=== PATIENT | female | born 1955 | race Caucasian/White ===

== ENCOUNTER 2019-03-01 14:34 | Emergency (ER) | payer OTHER ==
--- NOTE | 2019-03-01 14:39 | PDOC ---
Rapid Medical Evaluation Medical Evaluation: Allergies Allergy/AdvReac Type Severity Reaction Status Date / Time No Known Allergies Allergy Verified 06/25/15 18:30 I have performed a brief in-person evaluation of this patient. The patient presents with a chief complaint of: c/o RLQ pain from yesterday along with nausea; denies vomiting, diarrhea; hx of cholecystectomy; had mild dysuria Pertinent physical exam findings: In NAD, abdomen soft, NT I have ordered the following: labs, urine The patient will proceed to the ED for further evaluation. 03/01/19 14:36
[2019-03-01 14:40] VITALS: BP 147/75; PULSE 74; TEMP 98.5; BMI 33.3
[2019-03-01 15:22] LABS: BASO % 0.8 % (0-2.0); EOS % 4.5 % (0-4.5); HEMATOCRIT 43.3 % (32.4-45.2); HEMOGLOBIN 14.1 GM/dL (10.7-15.3); LYMPH % 24.1 % (8-40); MCH 28.4 pg (25.7-33.7); MCHC 32.5 g/dl (32.0-36.0); MEAN CELL VOLUME 87.4 fl (80-96); MEAN PLT VOLUME 7.6 fl (7.5-11.1); MONO % 6.9 % (3.8-10.2); NEUT % 63.7 % (42.8-82.8); PLATELET COUNT 394 K/MM3 (134-434); RBC 4.95 M/mm3 (3.60-5.2); RDW 13.6 % (11.6-15.6); WHITE BLOOD COUNT 10.5 K/mm3 (4.0-10.0)
[2019-03-01 15:25] LABS: EPI CELLS 0.4 /HPF (0-5/HPF); HYALINE CASTS 0 /lpf (0-8); URINE APPEARANCE CLEAR; URINE BACTERIA 0.5 /hpf (NEGATIVE); URINE BILIRUBIN NEGATIVE (NEGATIVE); URINE COLOR YELLOW; URINE GLUCOSE (UA) NEGATIVE (NEGATIVE); URINE KETONE NEGATIVE (NEGATIVE); URINE LEUK ESTERASE NEGATIVE (NEGATIVE); URINE NITRITE NEGATIVE (NEGATIVE); URINE PROTEIN NEGATIVE (NEGATIVE); URINE RBC 3 /hpf (0-4); URINE UROBILINOGEN 0.2 mg/dL (0.2-1.0); URINE WBC 1 /hpf (0-5)
[2019-03-01 15:57] LABS: BILIRUBIN,TOTAL 0.3 mg/dL (0.2-1); BLOOD UREA NITROGEN 19.1 mg/dL (7-18); CALCIUM 9.4 mg/dL (8.5-10.1); CREATININE 0.8 mg/dL (0.55-1.3); POTASSIUM 4.1 mmol/L (3.5-5.1); TOT PROT 7.6 g/dl (6.4-8.2)
--- NOTE | 2019-03-01 17:42 | PDOC ---
History of Present Illness - General Chief Complaint: Pain Stated Complaint: SOB/ABD PAIN Time Seen by Provider: 03/01/19 14:36 - History of Present Illness Initial Comments: 03/01/19 18:44 HPI: 64 y/o F with hx HLD and HTN presenting with sharp RLQ abdominal pain since yesterday. She states the pain radiates across her lower abdomen to her LLQ. Pain has no pattern and occurs at rest as well as during ambulation. Pain lasts for 15-20 minutes and is 9/10; advil provided no relief. She also reports decreased appetite. She denies any fever, chills, emesis, diarrhea. Of note, she also mentions URI symptoms for the past 3-4 days with sore throat, nausea, congestion, LH, and SOB. She also mentions she has been having burning on urination and hematuria for the past 2 days. PMHx: as noted above ROS: as noted SHx: Denies tobacco use; no alcohol use; no rec drugs Allergies: NKDA ROS: GENERAL/CONSTITUTIONAL: No fever or chills. No weakness. HEAD, EYES, EARS, NOSE AND THROAT: No change in vision. No ear pain or discharge. CARDIOVASCULAR: No chest pain RESPIRATORY: No cough, wheezing, or hemoptysis. GASTROINTESTINAL: +nausea. no vomiting, diarrhea or constipation. GENITOURINARY: +dysuria MUSCULOSKELETAL: No joint or muscle swelling or pain. No neck or back pain. SKIN: No rash NEUROLOGIC: No headache, vertigo, loss of consciousness, or change in strength/ sensation. ENDOCRINE: No increased thirst. No abnormal weight change HEMATOLOGIC/LYMPHATIC: No anemia, easy bleeding, or history of blood clots. ALLERGIC/IMMUNOLOGIC: No hives or skin allergy. PE: GENERAL: Awake, alert, and fully oriented, no acute distress HEAD: No signs of trauma, normocephalic, atraumatic EYES: EOMI, sclera anicteric, conjunctiva clear ENT: Auricles normal inspection, hearing grossly normal, nares patent, oropharynx clear without exudates. Moist mucosa NECK: Normal ROM, no lymphadenopathy LUNGS: No increased work of breathing, symmetrical chest rise, clear to auscultation bilaterally, no wheezes, crackles or rhonchi HEART: Regular rate and rhythm, normal S1 and S2, no murmurs, peripheral pulses 2+ and equal bilaterally. ABDOMEN: Soft, nondistended, mild tender to palpation with facial grimace in LLQ and RLQ, normoactive bowel sounds. No guarding, no rebound. No masses EXTREMITIES: Normal inspection, Normal range of motion, no edema. No clubbing or cyanosis. NEUROLOGICAL: Cranial nerves II through XII grossly intact. Normal speech, normal gait, no focal sensorimotor deficits SKIN: Warm, Dry, normal turgor, no rashes or lesions noted Past History - Past Medical History Allergies/Adverse Reactions: Allergies Allergy/AdvReac Type Severity Reaction Status Date / Time No Known Allergies Allergy Verified 06/25/15 18:30 Home Medications: Ambulatory Orders Naproxen [Naprosyn -] 500 mg PO BID #30 tablet 07/05/14 Oxycodone HCl/Acetaminophen [Percocet 5/325 -] 1 tab PO Q6H #20 tablet 07/05/14 levoFLOXacin [Levaquin] 750 mg PO DAILY #6 tab 03/01/19 metroNIDAZOLE [Flagyl -] 500 mg PO TID #20 tablet 03/01/19 COPD: No Diabetes: Yes HTN: Yes Hypercholesterolemia: Yes - Surgical History Cholecystectomy: Yes - Immunization History Immunization Up to Date: Yes - Suicide/Smoking/Psychosocial Hx Smoking History: Never smoked Have you smoked in the past 12 months: No Information on smoking cessation initiated: No Hx Alcohol Use: No Drug/Substance Use Hx: No Substance Use Type: None *Physical Exam - Vital Signs Last Vital Signs Temp Pulse Resp BP Pulse Ox 98.5 F 74 17 147/75 97 03/01/19 14:37 03/01/19 14:37 03/01/19 14:37 03/01/19 14:37 03/01/19 14:37 ED Treatment Course - LABORATORY CBC & Chemistry Diagram: 03/01/19 15:10 03/01/19 15:10 - ADDITIONAL ORDERS Additional order review: Laboratory Results 03/01/19 03/01/19 15:10 15:10 Sodium 142 Potassium 4.1 Chloride 106 Carbon Dioxide 29 Anion Gap 6 L BUN 19.1 H Creatinine 0.8 Est GFR (CKD-EPI)AfAm 90.30 Est GFR (CKD-EPI)NonAf 77.91 Random Glucose 96 Calcium 9.4 Total Bilirubin 0.3 AST 18 ALT 24 Alkaline Phosphatase 124 H Total Protein 7.6 Albumin 4.0 Urine Color Yellow Urine Appearance Clear Urine pH 5.0 Ur Specific [place] 1.015 Urine Protein Negative Urine Glucose (UA) Negative Urine Ketones Negative Urine Blood Trace Urine Nitrite Negative Urine Bilirubin Negative Urine Urobilinogen 0.2 Ur Leukocyte Esterase Negative Urine WBC (Auto) 1 Urine RBC (Auto) 3 Urine Casts (Auto) 0 U Epithel Cells (Auto) 0.4 Urine Bacteria (Auto) 0.5 03/01/19 15:10 RBC 4.95 MCV 87.4 MCHC 32.5 RDW 13.6 MPV 7.6 Neutrophils % 63.7 Lymphocytes % 24.1 Monocytes % 6.9 Eosinophils % 4.5 Basophils % 0.8 Medical Decision Making - Medical Decision Making 03/01/19 21:29 64 y/o F with hx HLD and HTN presenting with sharp RLQ abdominal pain since yesterday in setting of recent URI as well as in setting of dysuria and hematuria. VSS, AF. PE with RLQ and LLQ discomfort on palpation. DDx includes gastroenteritis, UTI, kidney stone, MSK, appendicitis -cbc, cmp, ua, ucx -ivf, ofirmev 03/01/19 22:31 CT/ABDOMEN PELVIS CT WITH CONTR Abdomen and pelvis CT with intravenous contrast Clinical information given: rlq pain multiplanar imaging was performed following intravenous administration of nonionic contrast. Enteric contrast was not administered. No prior imaging studies are available at this facility for direct comparison. There is no evidence of pneumoperitoneum, abscess, free intraperitoneal fluid or bowel obstruction. The appendix appears unremarkable. There is mild concentric wall thickening involving the middle third of the sigmoid colon in association with diverticulosis. In the same region there appears to be mild pericolonic soft tissue stranding. No gross noncontrast small bowel pathology is identified. A moderately large amount of food material is seen within the gastric lumen which may be on the basis of recent meal ingestion (versus gastroparesis or gastric outlet obstruction). Correlate clinically. Status post cholecystectomy. No biliary tract dilatation is seen. There is probable diffuse hepatic steatosis. Mild to moderate right renal cortical scarring is noted posteriorly. A 3 mm right renal calcification is noted in the same region which may represent a dystrophic calcification versus a nonobstructing calyceal calculus. The spleen, pancreas, adrenal glands and left kidney demonstrate no discrete abnormality. No gross lymphadenopathy is seen. There is no obvious CT evidence of adnexal pathology. Moderate to marked multilevel bilateral lower lumbar degenerative facet arthropathy. Impression: No CT findings of acute pathology are identified within the right lower abdomen/ pelvis. Note is made of mild concentric wall thickening involving the middle third of the sigmoid colon in association with diverticulosis suggestive of acute/subacute uncomplicated diverticulitis. In the same region there appears to be mild pericolonic soft tissue stranding. Correlation with colonoscopy is suggested when the patient's clinical condition permits. Status post cholecystectomy. A moderately large amount of food material is seen within the gastric lumen possibly due to recent meal ingestion. Please see above. Probable diffuse hepatic steatosis. Mild to moderate right renal cortical scarring posteriorly. In this same region a 3 mm calcification is noted which may represent dystrophic calcification versus a nonobstructing calculus. will give first dose of levaquin and flagyl in ED since pharmacy is closed discussed with patient results and she understand return pcxns. she is comfortable with DC with followup with PCP and GI for colonscopy *DC/Admit/Observation/Transfer Diagnosis at time of Disposition: Diverticulitis - Discharge Dispostion Disposition: HOME Condition at time of disposition: Improved Decision to Admit order: No - Prescriptions Prescriptions: levoFLOXacin [Levaquin] 750 mg PO DAILY #6 tab metroNIDAZOLE [Flagyl -] 500 mg PO TID #20 tablet - Referrals Referrals: Eric Castro MD [Staff Physician] - Jhonny Penaloza DO [Staff Physician] - - Patient Instructions Printed Discharge Instructions: High-Fiber Diet, DI for Diverticulitis, DI for Diverticulosis Additional Instructions: Additional Instructions: Please return to the emergency department with any new or worsening symptoms or concerns including worsening pain, fever, fainting, vomiting and not being able to tolerate a diet. Please follow up with your primary care physician within 72 hours. Please also see referrals attached for GI doctor for colonoscopy. Please take the antibiotics prescribed Levofloxacin 750mg daily for 6 more days and Metronidazole 500mg three times a day for 6 more days. Please take tylenol 650mg every 6-8 hours for pain control. Please read the handout on high fiber diet Print Language: ENG - Post Discharge Activity
[2019-03-01] MEDS ORDERED: ACETAMINOPHEN 1000 MG/100 ML VIAL (NON FORMULARY) IVPB ONE (21:21)
[2019-03-01] MEDS ORDERED: ACETAMINOPHEN INJECTION 100 ML IVPB ONE (21:27)
--- NOTE | 2019-03-01 22:13 | PDOC ---
Documentation entered by Morgan Salinas SCRIBE, acting as scribe for Delio Fajardo MD. Delio Fajardo MD: This documentation has been prepared by the Rita stokes Xhesika, SCRIBE, under my direction and personally reviewed by me in its entirety. I confirm that the documentation accurately reflects all work, treatment, procedures, and medical decision making performed by me. Attending Attestation - Resident Resident Name: [email or web address] - ED Attending Attestation I have performed the following: I have examined & evaluated the patient, The case was reviewed & discussed with the resident, I agree w/resident's findings & plan, Exceptions are as noted - HPI HPI: 03/01/19 20:07 The patient is a 64 year old female with a PMH of HLD and HTN who presents to the ED with lower abdominal pain since yesterday. Patient describes her abdominal pain as diffuse, constant and sharp. The patient denies chest pain, shortness of breath. Denies fever, chills, cough , nausea, vomiting, diarrhea and constipation. Denies dysuria, frequency, urgency and hematuria. Allergies:, NKDA Social Hx: Denies current smoking, drinking, or other substance usage. PCP: Dr. Brenda Winters - Physicial Exam PE: 03/01/19 20:07 Vitals: Triage Vital signs reviewed General Appearance: no acute distress, well nourished well developed, Head: Atraumatic, normocephalic Neck: Supple;No Nuchal rigidity Chest Wall: Nontender Cardiac: Regular rate and rhythm, no murmurs, no rubs, no gallops, Lungs: Clear to auscultation bilateral, good air movement bilaterally, Abdomen: (+) diffuse lower abdominal tenderness. Soft, nondistended, normal bowel sounds Extremities: Full range of motion to all extremities, no cyanosis, clubbing, or edema Skin: Warm and dry, no rashes or lesions, no petechiae Neuro: AOX3; Cranial Nerves 2-12 grossly c intact, Strength intact to all extremities, Sensation intact to all extremities Psych: normal mood, normal affect - Medical Decision Making 03/02/19 00:33 CT with evidence of diverticulitis. Patient well-appearing no fever no significant elevated white blood cell count. We'll treat with outpatient antibiotics Findings, the need for follow up and strict return instructions d/w patient
[2019-03-01] MEDS ORDERED: metroNIDAZOLE 250 MG TABLET PO ONE (22:17)
[2019-03-01] MEDS ORDERED: metroNIDAZOLE 250 MG TABLET ONE (22:31)
[2019-03-02] MEDS ORDERED: levoFLOXacin 750 MG TABLET PO ONE (22:16)
== END 2019-03-01 22:43 | disposition home or self-care (01) ==
LOC: JER 14:34
PROC: 3E033NZ Introduction of Analgesics, Hypnotics, Sedatives into Peripheral Vein, Percutaneous Approach (ICD-10-PCS; principal; 2019-03-01)
DX: K57.92 Diverticulitis of intestine, part unspecified, without perforation or abscess without bleeding (principal); I10 Essential (primary) hypertension; E78.5 Hyperlipidemia, unspecified; E11.9 Type 2 diabetes mellitus without complications
CPT/HCPCS: 36415; 74177-TC; 80053; 81003; 85025; 87086; 99283-25; J0131

== ENCOUNTER 2019-03-26 17:15 | Inpatient (IN) | payer OTHER ==
[2019-03-26] MEDS ORDERED: ACETAMINOPHEN 1000 MG/100 ML VIAL (NON FORMULARY) IVPB ONE (19:52)
[2019-03-26] MEDS ORDERED: PANTOPRAZOLE SODIUM 40 MG VIAL IVPUSH ONE (19:52)
[2019-03-26] MEDS ORDERED: SODIUM CHLORIDE 0.9% 500 ML INFUS.BAG IV ONE (19:52)
--- NOTE | 2019-03-26 19:56 | PDOC ---
History of Present Illness - General Chief Complaint: Pain Stated Complaint: stomach pain Time Seen by Provider: 03/26/19 19:11 History Source: Patient, Family Exam Limitations: Language Barrier (daughter at bedside ) - History of Present Illness Initial Comments: 03/28/19 19:34 HPI: 64F PMH HTN c/o abruptly worsening colicky lower quadrant and epigastric abdominal pain and nbnb vomiting x2. was seen approx 1 month ago in [facility] and found to have diverticulitis, subsequently discharged on abx. Has had mild on/ off abdominal pain since dc and had GI f/u schd for 04/01/19. Pt has adhered to no dairy no nuts/seeds soft diet. Sx worsened today around 2pm. + sick contacts (v/d), abd surg: gallbladder, +recent abx use for diverticulitis. Endorses mild nausea, chills, dysuria, and frequency. Last BM yesterday, flatus today. Past History - Past Medical History Allergies/Adverse Reactions: Allergies Allergy/AdvReac Type Severity Reaction Status Date / Time No Known Allergies Allergy Verified 03/26/19 17:21 Home Medications: Ambulatory Orders Hydrochlorothiazide 25 mg PO DAILY 03/27/19 Losartan Potassium 50 mg PO DAILY 03/27/19 COPD: No Diabetes: Yes HTN: Yes Hypercholesterolemia: Yes - Surgical History Cholecystectomy: Yes - Immunization History Immunization Up to Date: Yes - Psycho Social/Smoking Cessation Hx Smoking History: Never smoked Have you smoked in the past 12 months: No Hx Alcohol Use: No Drug/Substance Use Hx: No Substance Use Type: None Review of Systems - Review of Systems Able to Perform ROS?: Yes Comments:: 03/28/19 19:34 ROS: CONSTITUTIONAL: Endorses Chills HEENT: Denies headache RESP: Denies SOB CARD: Denies chest pain, palpitations GI: Endorses mild nausea and vomiting. Denies diarrhea. : Endorses dysuria and frequency Is the patient limited Somali proficient: Yes *Physical Exam - Vital Signs Last Vital Signs Temp Pulse Resp BP Pulse Ox 98.5 F 100 H 18 124/89 98 03/26/19 17:17 03/26/19 17:17 03/26/19 17:17 03/26/19 17:17 03/26/19 17:17 - Physical Exam Comments: 03/28/19 19:34 PE: GEN: Well appearing, NAD, comfortable. AAOx3 HEENT: NC/AT. No facial asymmetry. Moist mucous membranes. Normal voice. Supple neck w/ FROM. CV: S1/S2, RRR, no m/r/g LUNG: CTAB, no wheezes, crackles, rales, rhonchi. GI: +TTP epigastrum and lower quadrants, worse in lower quadrants. Obese, soft, +BS, no guarding, no rebound. No masses EXTREMITIES: 2+ distal pulses. No LE edema. No obvious deformities of all extremities. SKIN: warm, dry, normal turgor PSYCH: normal mood and affect ED Treatment Course - LABORATORY CBC & Chemistry Diagram: 03/28/19 08:10 03/28/19 08:10 - RADIOLOGY Radiology Studies Ordered: Category Date Time Status CHEST X-RAY PORTABLE* [RAD] Stat Radiology 03/26/19 19:48 Ordered Medical Decision Making - Medical Decision Making 03/26/19 20:19 MDM: 64F h/o diverticulitis presenting to ED w/ lower quadrants and epigastric abdominal pain that worsened today. Associated nbnb vomiting x2. +sick contacts. Abdominal Pain h/o diverticulitis - CBC, CMP, Lipase, Amylase, Card - UA, UC - CXR, EKG - Fluids, pain ctrl signed out to attending Discharge - Discharge Information Problems reviewed: Yes Clinical Impression/Diagnosis: Pneumoperitoneum, Acute diverticulitis of intestine, Intestinal perforation Condition: Guarded - Follow up/Referral - Patient Discharge Instructions - Post Discharge Activity
[2019-03-26] MEDS ORDERED: ACETAMINOPHEN INJECTION 100 ML IVPB ONE (21:04)
[2019-03-26] MEDS ORDERED: PANTOPRAZOLE SODIUM 40 MG VIAL ONE (21:05)
--- NOTE | 2019-03-26 21:43 | PDOC ---
Attending Attestation - Resident Resident Name: milatereso - ED Attending Attestation I have performed the following: I have examined & evaluated the patient, The case was reviewed & discussed with the resident, I agree w/resident's findings & plan, Exceptions are as noted - HPI HPI: 03/26/19 21:39 64-year-old female presents with with 2 episodes of vomiting in her severe cramping lower abdominal pain and some chills This patient was seen and diagnosed with diverticulitis at the end of February and placed on Levaquin Levaquin and Flagyl. She does have a follow-up appointment with her GI specialist next Monday - Physicial Exam PE: 03/26/19 21:43 Well-nourished well-developed 64-year-old female complaining of cramping lower abdominal pain and some dysuria Head is normocephalic atraumatic Neck supple Lungs are clear to auscultation bilaterally CVS is regular rate rhythm S1-S2 Abdomen is soft there is no rebound there is tenderness to deep palpation in her suprapubic area No flank tenderness Skin is warm and dry Neuro alert and oriented x3 03/27/19 01:58 - Medical Decision Making 03/27/19 00:19 EKG is normal sinus rhythm 86 bpm, nonspecific T wave abnormalities 03/27/19 01:50 CAT scan of the abdomen and pelvis with contrast showed a large amount of intraperitoneal free air indicating bowel perforation There is mild sigmoid inflammation that may be due to perforated diverticulitis There is a tiny right renal stone Case was discussed with the surgeon Dr. BLOOM [phone] [id number] Recommendations : n.p.o., Zosyn 3.375 D5 and half-normal saline for fluid He wants patient admitted by hospitalist and he will be the ophthalmology surgical technician He will see the patient this morning and make a decision to see if she requires surgery or not Sigmoid diverticulitis, bowel perforation 03/27/19 01:55
[2019-03-26 22:38] LABS: URINE APPEARANCE CLEAR; URINE BILIRUBIN NEGATIVE (NEGATIVE); URINE COLOR YELLOW; URINE GLUCOSE (UA) NEGATIVE (NEGATIVE); URINE KETONE TRACE (NEGATIVE); URINE LEUK ESTERASE NEGATIVE (NEGATIVE); URINE NITRITE NEGATIVE (NEGATIVE); URINE PROTEIN NEGATIVE (NEGATIVE)
[2019-03-26 22:47] LABS: AMYLASE 44 U/L (25-115); LIPASE 74 U/L (73-393)
[2019-03-26 22:53] LABS: ALBUMIN 3.6 g/dl (3.4-5.0); ALK PHOS 105 U/L (45-117); ANION GAP 10 MMOL/L (8-16); BILIRUBIN,TOTAL 0.5 mg/dL (0.2-1); BLOOD UREA NITROGEN 22.7 mg/dL (7-18); CHLORIDE 102 mmol/L (98-107); CO2 25 mmol/L (21-32); CREATININE 0.8 mg/dL (0.55-1.3); GLUCOSE,RANDOM 163 mg/dL (74-106); POTASSIUM 3.8 mmol/L (3.5-5.1); SGOT/AST 18 U/L (15-37); SGPT/ALT 25 U/L (13-61); SODIUM 137 mmol/L (136-145); TOT PROT 7.2 g/dl (6.4-8.2)
[2019-03-26 23:31] LABS: BASO % 0.4 % (0-2.0); HEMATOCRIT 42.9 % (32.4-45.2); HEMOGLOBIN 14.6 GM/dL (10.7-15.3); LYMPH % 7.9 % (8-40); MCH 29.2 pg (25.7-33.7); MEAN CELL VOLUME 85.9 fl (80-96); MEAN PLT VOLUME 7.5 fl (7.5-11.1); MONO % 4.5 % (3.8-10.2); NEUT % 87.2 % (42.8-82.8); PLATELET COUNT 323 K/MM3 (134-434); RDW 13.6 % (11.6-15.6); WHITE BLOOD COUNT 10.8 K/mm3 (4.0-10.0)
[2019-03-27] MEDS ORDERED: PIPERACILLIN/TAZOB 4.5 GM 4.5 GM in DEXTROSE 5%-WATER 100 ML IVPB ONE (01:48)
[2019-03-27] MEDS ORDERED: morphine CARPU-JECT 4 MG/1 ML DISP.SYRIN IVPUSH ONE (01:51)
--- NOTE | 2019-03-27 01:59 | PDOC ---
*Physical Exam - Vital Signs Last Vital Signs Temp Pulse Resp BP Pulse Ox 98.3 F 87 19 125/82 95 03/26/19 19:20 03/26/19 19:20 03/26/19 19:20 03/26/19 19:20 03/26/19 19:20 ED Treatment Course - LABORATORY CBC & Chemistry Diagram: 03/26/19 23:24 03/26/19 21:50 - ADDITIONAL ORDERS Additional order review: Laboratory Results 03/26/19 03/26/19 03/26/19 22:16 21:50 21:50 Sodium 137 Potassium 3.8 Chloride 102 Carbon Dioxide 25 Anion Gap 10 BUN 22.7 H Creatinine 0.8 Est GFR (CKD-EPI)AfAm 90.30 Est GFR (CKD-EPI)NonAf 77.91 Random Glucose 163 H Calcium 9.0 Total Bilirubin 0.5 AST 18 ALT 25 Alkaline Phosphatase 105 Creatine Kinase 100 Troponin I < 0.02 Total Protein 7.2 Albumin 3.6 Total Amylase 44 Lipase 74 Urine Color Yellow Urine Appearance Clear Urine pH 5.0 Ur Specific [place] 1.030 Urine Protein Negative Urine Glucose (UA) Negative Urine Ketones Trace H Urine Blood Negative Urine Nitrite Negative Urine Bilirubin Negative Urine Urobilinogen 1.0 Ur Leukocyte Esterase Negative 03/26/19 03/26/19 23:24 22:54 RBC 5.00 Cancelled MCV 85.9 Cancelled MCHC 34.0 Cancelled RDW 13.6 Cancelled MPV 7.5 Cancelled Neutrophils % 87.2 H D Cancelled Lymphocytes % 7.9 L D Cancelled Monocytes % 4.5 Cancelled Eosinophils % 0.0 D Cancelled Basophils % 0.4 Cancelled - Medications Given in the ED: ED Medications Discontinued Medications Generic Name Dose Route Start Last Admin Trade Name Freq PRN Reason Stop Dose Admin Acetaminophen 1,000 mg 03/26/19 19:52 03/26/19 20:40 Ofirmev Injection - IVPB 03/26/19 19:53 1,000 mg ONCE ONE Administration Pantoprazole Sodium 40 mg 03/26/19 19:52 03/26/19 20:40 Protonix Iv IVPUSH 03/26/19 19:53 40 mg ONCE ONE Administration Sodium Chloride 1,000 ml 03/26/19 19:52 03/26/19 20:40 Normal Saline - IV 03/26/19 19:53 1,000 ml ONCE ONE Administration Medical Decision Making - Medical Decision Making 03/27/19 01:57 Microblog sent to [facility] for admission, Med/Surg, inpatient. Consult order placed to Dr. Mayfield (Dr. Kemp has spoken with him). Additional pre-op lab orders placed, pain meds, abx, IVF per Dr. Mayfield's request. Patient NPO. Discharge - Discharge Information Problems reviewed: Yes Clinical Impression/Diagnosis: Pneumoperitoneum, Acute diverticulitis of intestine, Intestinal perforation Condition: Guarded - Admission Yes - Follow up/Referral - Patient Discharge Instructions - Post Discharge Activity
[2019-03-27] MEDS ORDERED: DEXTROSE 5%-0.45% SALINE 1,000 ML IV SCH (02:00)
--- NOTE | 2019-03-27 02:24 | PN ---
Teaching Attending Note Name of Resident: Pietro Singh ATTENDING PHYSICIAN STATEMENT I saw and evaluated the patient. I reviewed the resident's note and discussed the case with the resident. I agree with the resident's findings and plan as documented. SUBJECTIVE: Patient is a 64 year old woman with PMH of HLD, Cholecystectomy and HTN complaining of abruptly worsening colicky lower quadrant and epigastric abdominal pain and vomiting x2. Was seen about 1 month ago in [facility] ER and found to have uncomplicated sigmoid diverticulitis and was discharged on a 6 day course of flagyl and levofloxacin. Has had mild on/off abdominal pain since discharge and was scheduled for GI follow up on 04/01/19. Patient has adhered to no dairy, no nuts/seeds and soft diet. Patient was exposed to sick contacts and has mild nausea, chills, dysuria and frequency. Last BM was yesterday. She denies headache, SOB, chest pain, palpitations or diarrhea. Nonsmoker. Denies alcohol or illicit drug use. OBJECTIVE: Alert Vital Signs Period Temp Pulse Resp BP Sys/Arevalo Pulse Ox Last 24 Hr 98.3 F-98.5 F 87-100 18-19 124-125/82-89 95-98 HEENT: No Jaundice, eye redness or discharge, PERRLA, EOMI. Normocephalic, atraumatic. External ears are normal and hearing is grossly intact. No nasal discharge. Neck: Supple, nontender. No palpable adenopathy or thyromegaly. No JVD Chest: Good effort. Clear to auscultation and percussion. Heart: Regular. No S3, rub or murmur Abdomen: Not distended, soft, epigastric, suprapubic and RLQ tenderness and no HSM. No rebound or guarding. Normal bowel sounds. Ext: Peripheral pulses intact. No leg edema. Skin: Warm and dry. No petechiae, rash or ecchymosis. Neuro: Alert. Oriented x3. CN 2-12 grossly intact. Sensation grossly intact in all four extremities and DTR are symmetric. Psych: Appropriate mood and affect. Good insight. Current Medications Generic Name Dose Route Start Last Admin Trade Name Freq PRN Reason Stop Dose Admin Dextrose/Sodium Chloride 1,000 mls @ 125 mls/hr 03/27/19 02:00 D5-1/2ns - IV ASDIR MARTITA Home Medications Medication Instructions Recorded Naproxen [Naprosyn -] 500 mg PO BID #30 tablet 07/05/14 Oxycodone HCl/Acetaminophen 1 tab PO Q6H #20 tablet 07/05/14 [Percocet 5/325 -] levoFLOXacin [Levaquin] 750 mg PO DAILY #6 tab 03/01/19 metroNIDAZOLE [Flagyl -] 500 mg PO TID #20 tablet 03/01/19 Abnormal Lab Results 03/26/19 03/26/19 03/26/19 21:50 22:16 23:24 WBC 10.8 H Absolute Neuts (auto) 9.5 H Neutrophils % 87.2 H D Lymphocytes % 7.9 L D BUN 22.7 H Random Glucose 163 H Urine Ketones Trace H ASSESSMENT AND PLAN: 1. Perforated diverticulitis - CAT scan of the abdomen and pelvis with contrast showed "a large amount of intraperitoneal free air indicating bowel perforation. There is mild sigmoid inflammation that may be due to perforated diverticulitis. There is a tiny right renal stone". ER staff consulted the surgeon who will see patient in the morning. EKG shows NSR with no significant ST-T wave changes. Will keep him NPO, give IV D5NS, morphine for pain control and IV Zosyn 4.5 gm q 8 hours. When stable will check HbA1c. Will continue comprehensive care for all of patients comorbid conditions. 2. Obesity Counseled on the risks associated with obesity. Will provide patient all the necessary assistance, counseling and positive reinforcement to facilitate weight loss. Consult brick siding applicator. 3. Hypertension - Restart suitable outpatient antihypertensive drugs when clinically appropriate. Revise regimen to ensure [id number] excellent BP control and student support counselor patient on the injurious effects of uncontrolled hypertension. Nonpharmacologic measures to control hypertension like weight loss , salt restriction and exercise discussed. Importance of adherence to treatment regimen and attainment of normotension emphasized. 4. DVT prophylaxis - SCD. Withhold heparin for now in case patient needs surgery. 5. Advance directives - Full code
[2019-03-27] MEDS ORDERED: PIPERACILLIN/TAZOB 4.5 GM 4.5 GM/100 ML BAG IVPB ONE (02:30)
[2019-03-27] MEDS ORDERED: MORPHINE SULFATE 2 MG/ML VIAL ONE (02:30)
[2019-03-27] MEDS ORDERED: DEXTROSE 5%-NORMAL SALINE 1,000 ML IV SCH (03:45)
--- NOTE | 2019-03-27 03:49 | HP ---
CHIEF COMPLAINT: PCP: unknown HISTORY OF PRESENT ILLNESS: 64 y/o zimbabwean speaking female with PMhx of HTN here for worsening superpubic and lower abdominal pain. Patient was seen in the ER about 1 month ago and diagnosed with uncomplicated diverticulitis, sent home with prescriptions for Flagyl and Levofloxacin. Patient states that she did not finish her course of abx. She has had intermittent abdominal pain since her last visit. Her pain spontaneously worsened in the afternoon. She denies any falls or trauma. She vomited twice since the pain worsened, no blood, no bile. She has also had burning with urination that started today as well, no blood in the urine. She complains of nausea and chills. She denies any chest pain, SOB, cough, fever. She had a colonoscopy about ten years ago and was told she has diverticulosis at that time but has not followed up with a repeat colonoscopy since then. ER course was notable for: (1) CT with evidence of perforated intestine and sigmoid inflammation. Also noted is a small R renal stone (2) Consulted surgery, Dr. Mayfield Recent Travel: none PAST MEDICAL HISTORY: HTN PAST SURGICAL HISTORY: Cholecystectomy Social History: Smoking: denies Alcohol: denies Drugs: denies FamHx: denies any significant family history Allergies No Known Allergies Allergy (Verified 03/26/19 17:21) HOME MEDICATIONS: Home Medications Medication Instructions Recorded Naproxen [Naprosyn -] 500 mg PO BID #30 tablet 07/05/14 Oxycodone HCl/Acetaminophen 1 tab PO Q6H #20 tablet 07/05/14 [Percocet 5/325 -] levoFLOXacin [Levaquin] 750 mg PO DAILY #6 tab 03/01/19 metroNIDAZOLE [Flagyl -] 500 mg PO TID #20 tablet 03/01/19 REVIEW OF SYSTEMS Constitutional: chills denies fever, weakness HEENT: denies neck pain, blurry vision Cardio: denies palpitations, chest pain, lightheadedness Resp: denies wheezing, SOB GI: abd pain, nausea, vomiting denies diarrhea, constipation : dysuria denies hematuria MSK: denies joint pain, back pain SKIN: denies rashes Neuro: denies loss of consciousness, headache, dizziness, numbness PHYSICAL EXAMINATION Vital Signs - 24 hr 03/26/19 03/26/19 03/26/19 17:17 19:20 19:47 Temperature 98.5 F 98.3 F 97.2 F L Pulse Rate 100 H Pulse Rate [ 87 94 H Right Radial] Respiratory 18 19 18 Rate Blood Pressure 124/89 Blood Pressure 125/82 112/68 [Left Arm] O2 Sat by Pulse 98 95 95 Oximetry (%) GENERAL: mild distress. Awake, alert, and fully oriented HEAD: NC/AT EYES: PERRL, EOMI EARS, NOSE, THROAT: Ears normal, nares patent, oropharynx clear without exudates. Moist mucous membranes. NECK: supple, no cervical lymphadenopathy LUNGS: Breath sounds equal, clear to auscultation bilaterally. No wheezes, and no crackles. No accessory muscle use. HEART: Regular rate and rhythm, normal S1 and S2 without murmur, rub or gallop. ABDOMEN: tenderness to palpation over suprapubic region and RLQ. Soft, not distended, normoactive bowel sounds, no guarding, no rebound, no masses. MUSCULOSKELETAL: Normal range of motion at all joints. No bony deformities or tenderness. UPPER EXTREMITIES: 2+ pulses, warm, well-perfused. No cyanosis. No clubbing. No peripheral edema. LOWER EXTREMITIES: 2+ pulses, warm, well-perfused. No calf tenderness. No peripheral edema. NEUROLOGICAL: Normal speech. Normal gait. 5/5 strength upper and lower extremities PSYCHIATRIC: Cooperative. Good eye contact. Appropriate mood and affect. SKIN: Warm, dry, normal turgor, no rashes or lesions noted, normal capillary refill. Laboratory Results - last 24 hr 03/26/19 03/26/19 03/26/19 21:50 21:50 22:16 WBC Corrected WBC (auto) RBC Hgb Hct MCV MCH MCHC RDW Plt Count MPV Absolute Neuts (auto) Neutrophils % Lymphocytes % Monocytes % Eosinophils % Basophils % Nucleated RBC % Platelet Estimate Platelet Comment Sodium 137 Potassium 3.8 Chloride 102 Carbon Dioxide 25 Anion Gap 10 BUN 22.7 H Creatinine 0.8 Est GFR (CKD-EPI)AfAm 90.30 Est GFR (CKD-EPI)NonAf 77.91 Random Glucose 163 H Calcium 9.0 Total Bilirubin 0.5 AST 18 ALT 25 Alkaline Phosphatase 105 Creatine Kinase 100 Troponin I < 0.02 Total Protein 7.2 Albumin 3.6 Total Amylase 44 Lipase 74 Urine Color Yellow Urine Appearance Clear Urine pH 5.0 Ur Specific Sullivan 1.030 Urine Protein Negative Urine Glucose (UA) Negative Urine Ketones Trace H Urine Blood Negative Urine Nitrite Negative Urine Bilirubin Negative Urine Urobilinogen 1.0 Ur Leukocyte Esterase Negative 03/26/19 03/26/19 22:54 23:24 WBC Cancelled 10.8 H Corrected WBC (auto) Cancelled RBC Cancelled 5.00 Hgb Cancelled 14.6 Hct Cancelled 42.9 MCV Cancelled 85.9 MCH Cancelled 29.2 MCHC Cancelled 34.0 RDW Cancelled 13.6 Plt Count Cancelled 323 MPV Cancelled 7.5 Absolute Neuts (auto) Cancelled 9.5 H Neutrophils % Cancelled 87.2 H D Lymphocytes % Cancelled 7.9 L D Monocytes % Cancelled 4.5 Eosinophils % Cancelled 0.0 D Basophils % Cancelled 0.4 Nucleated RBC % Cancelled 0 Platelet Estimate Cancelled Platelet Comment Cancelled Sodium Potassium Chloride Carbon Dioxide Anion Gap BUN Creatinine Est GFR (CKD-EPI)AfAm Est GFR (CKD-EPI)NonAf Random Glucose Calcium Total Bilirubin AST ALT Alkaline Phosphatase Creatine Kinase Troponin I Total Protein Albumin Total Amylase Lipase Urine Color Urine Appearance Urine pH Ur Specific Sullivan Urine Protein Urine Glucose (UA) Urine Ketones Urine Blood Urine Nitrite Urine Bilirubin Urine Urobilinogen Ur Leukocyte Esterase Imaging: CT abd & pelvis: large amount of intraperitoneal free air indicating bowel perforation. Mild sigmoid inflammation may be due to perforated diverticulitis. Tiny right renal stone. EKG: Normal sinus rhythm at 86bpm. No acute ischemic changes noted ASSESSMENT/PLAN: 64 y/o zimbabwean speaking female with PMhx of HTN here for worsening superpubic and lower abdominal pain. Patient was seen here one month ago and diagnosed with uncomplicated diverticulitis and sent home with flagyl and levofloxacin. 1)Diverticulitis with bowel perforation -Surgery consulted, Dr. Mayfield -Started patient on Zosyn q8hr -IVF -NPO -Pre-op labs ordered -Tylenol for pain control 2)Prophylaxis -SCDs -Chemical prophylaxis held in anticipation of surgical procedure -Protonix for GI prophylaxis 3)FEN -D5NS@125mls/hr -NPO in anticipation of surgical procedure 4)Disposition -admitted to med surg Visit type - Emergency Visit Emergency Visit: Yes ED Registration Date: 03/27/19 Care time: The patient presented to the Emergency Department on the above date and was hospitalized for further evaluation of their emergent condition. - New Patient This patient is new to me today: Yes Date on this admission: 03/27/19 - Critical Care Critical Care patient: No ATTENDING PHYSICIAN STATEMENT I saw and evaluated the patient. I reviewed the resident's note and discussed the case with the resident. I agree with the resident's findings and plan as documented. SUBJECTIVE: OBJECTIVE: ASSESSMENT AND PLAN:
[2019-03-27 04:02] LABS: INR 1.21 (0.83-1.09); PROTHROMBIN TIME (PATIENT) 14.3 SEC (9.7-13.0)
[2019-03-27 05:43] LABS: HEMATOCRIT 41.6 % (32.4-45.2); HEMOGLOBIN 14.1 GM/dL (10.7-15.3); MCH 29.5 pg (25.7-33.7); MCHC 33.9 g/dl (32.0-36.0); MEAN PLT VOLUME 7.7 fl (7.5-11.1); PLATELET COUNT 315 K/MM3 (134-434); RBC 4.78 M/mm3 (3.60-5.2); RDW 13.8 % (11.6-15.6); WHITE BLOOD COUNT 11.9 K/mm3 (4.0-10.0)
[2019-03-27 06:07] LABS: BLOOD UREA NITROGEN 21.7 mg/dL (7-18); CALCIUM 8.7 mg/dL (8.5-10.1); CREATININE 0.8 mg/dL (0.55-1.3); POTASSIUM 3.5 mmol/L (3.5-5.1)
--- NOTE | 2019-03-27 08:02 | CONSULT ---
- Consultation REQUESTING PROVIDER: General Surgery - Javier Mayfield CONSULT REQUEST: We have been asked to surgically evaluate this patient for abd pain PCP: Unknown Hospitalist: Dr. Nasim Naylor HPI: Called to evhao 64 yo female w/ PMHx as noted below. 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 Patient comes to [facility] ED for emergent evaluation of her lower abd pain. She was recently seen/evaluated on 03/01/19, treated and discharged home the same day with diagnosis of uncomplicated sigmoid diverticulitis on Flagyl & Levofloxacin...which she didn't finish the prescribed course (upset her stomach). Patient was supposed to f/u w/ GI on . States she continues to have intermittent lower abd pain since ER discharge. Pain became so severe yesterday around 2PM that she came back for further evaluation. This morning, found patient supine in bed, mild discomfort. C/o lower abd pain ( points towards LLQ/suprapubic region) tenderness. States she feels a little better since being admitted. She has received Zosyn 3.375 x 2 doses as well as pian control. ABD CT with contrast (wet read): scattered small pockets of air. Sigmoid diverticulitis. Initially had manav associated n/v x2 (nbnb)...since resolved. Denies CP, palpitations, SOB or ODOM. Denies melena or hematochezia. Denies hematuria, flank pain, bladder or bowel incontinence. PMHx: HTN. Diverticulosis(itis). Obesity. HLD. DM PSHx: Cholecystectomy Home Meds Hydrochlorothiazide 25 mg PO DAILY. 03/27/19 Losartan Potassium 50 mg PO DAILY. 03/27/19 Allergies: NKDA ROS: CONSTITUTIONAL: Absent: chills, diaphoresis, generalized weakness, malaise, weight change CARDIOVASCULAR: Absent: syncope, irregular heart rate, lightheadedness, peripheral edema RESPIRATORY: Absent: cough, wheezing, stridor, hemoptysis GASTROINTESTINAL:see hpi. GENITOURINARY: Absent: dysuria, frequency, urgency, hesitancy MUSCULOSKELETAL: Absent: myalgia, arthralgia, joint swelling, back pain, neck pain SKIN: Absent: rash, itching, pallor HEMATOLOGIC/IMMUNOLOGIC: Absent: easy bleeding, easy bruising, lymphadenopathy NEUROLOGIC: Absent: headache, focal weakness, paresthesias, dizziness, unsteady gait, seizure, mental status changes PSYCHIATRIC: Absent: anxiety, depression, suicidal or homicidal ideation, hallucinations. PE: GENERAL: Awake, alert, and fully oriented, in no acute distress. HEAD: Normal with no signs of trauma. EYES: PERRL, sclera anicteric, conjunctiva clear. LUNGS: CTA bilat HEART: RRR ABD: Obese habitus, hypoactive bowel sounds in all quadrants. LLQ/Suprapubic TTP with voluntary guarding. No rigidity. MUSCULOSKELETAL: No CVA tenderness. UE: 2+ pulses, warm, well-perfused. No cyanosis. Cap refill <2 seconds. No peripheral edema. LE: 2+ pulses, warm, well-perfused. No calf tenderness. No peripheral edema. PSYCH: Cooperative. Good eye contact. Appropriate mood and affect. SKIN: Warm, dry, normal turgor, no rashes or lesions noted. Last Vital Signs Temp Pulse Resp BP Pulse Ox 99.0 F 87 20 126/73 100 03/27/19 04:42 03/27/19 04:42 03/27/19 04:42 03/27/19 04:42 03/26/19 23:01 WBC TREND 03/26/19 03/27/19 23:24 05:33 WBC 10.8 11.9 BMP 03/27/19 05:33 Blood Type Blood Type O POSITIVE 03/27/19 02:03 INR, PTT INR 1.21 (0.83-1.09) H 03/27/19 03:22 Urine Test Results Urine Color Yellow 03/26/19 22:16 Urine Appearance Clear 03/26/19 22:16 Urine pH 5.0 (5.0-8.0) 03/26/19 22:16 Ur Specific Orwell 1.030 (1.010-1.035) 03/26/19 22:16 Urine Protein Negative (NEGATIVE) 03/26/19 22:16 Urine Glucose (UA) Negative (NEGATIVE) 03/26/19 22:16 Urine Ketones Trace (NEGATIVE) H 03/26/19 22:16 Urine Blood Negative (NEGATIVE) 03/26/19 22:16 Urine Nitrite Negative (NEGATIVE) 03/26/19 22:16 Urine Bilirubin Negative (NEGATIVE) 03/26/19 22:16 Ur Leukocyte Esterase Negative (NEGATIVE) 03/26/19 22:16 Troponin 03/26/19 21:50 Troponin I < 0.02 Problem List - Problems (1) Acute diverticulitis of intestine Assessment/Plan: 64 yo female with known h/o sigmoid diverticulits (most recent ED visit for same problem 03/01/19), comes back to ED for further evaluation due to intermittent bouts of ABD pain since that discharge. An ABD CT shows small scattered pockets of free air and sigmoid diverticulits (wet read). Patient is non-toxic appearing. Low grade fever early this morning but currently afebrile. Mild leukocytosis. 1. NPO - strict bowel rest 2. IVF 3. GI PPX 4. DVT PPX 5. ID Consult 6. Cont Zosyn 7. Ofirmev 1000mg q6H for pain and or fever > 100.4F 8. AXR in AM 9. Serial ABD exams 10. CBC, BMP in AM 11. f/u official CT read 12. Plan for repeat ABT CT in 3-5 days if her pain improves (comparative study) 13. Next 24 hours will be critical. Explained to patient that we are going to treat her very conservatively with plan as outlined above to avoid surgery as patient wishes not to have a colostomy. If patient fails to improve or (increase abd pain/wbc/tachycardic/febrile) discussed in detail that surgical procedure would be a [facility]'s Procedure (colostomy). Had patient repeat back to me what I explained to her and she demonstrated full understanding. 14. Surgery Team to continue following Above plan discussed with Dr. Mayfield and agrees. Code(s): K57.92 - DVTRCLI OF INTEST, PART UNSP, W/O PERF OR ABSCESS W/O BLEED (2) HTN (hypertension) Code(s): I10 - ESSENTIAL (PRIMARY) HYPERTENSION (3) HLD (hyperlipidemia) Code(s): E78.5 - HYPERLIPIDEMIA, UNSPECIFIED (4) Diabetes Code(s): E11.9 - TYPE 2 DIABETES MELLITUS WITHOUT COMPLICATIONS Visit type - Case Type Case Type: ED Admission - Emergency Emergency Visit: Yes ED Registration Date: 03/27/19 Care time: The patient presented to the Emergency Department on the above date and was hospitalized for further evaluation of their emergent condition. - New patient This patient is new to me today: Yes Date on this admission: 03/27/19
[2019-03-27] MEDS ORDERED: PIPERACILLIN/TAZOB 3.375 GM 3.375 GM in DEXTROSE 5%-WATER - 50 ML IVPB SCH (10:00)
[2019-03-27] MEDS ORDERED: HYDROCHLOROTHIAZIDE 25 MG TABLET (FP) PO SCH (10:00)
[2019-03-27] MEDS ORDERED: LOSARTAN POTASSIUM 50 MG TABLET (FP) PO SCH (10:00)
[2019-03-27] MEDS: SODIUM CHLORIDE 1,000 ML IV SCH ×2 (10:58→20:57)
[2019-03-27] MEDS ORDERED: PIPERACILLIN/TAZOBACTAM 3.375 GM VIAL IVPB ONE ×2 (11:00→16:44)
[2019-03-27] MEDS ORDERED: DEXTROSE 5%-WATER - 50 ML IVPB ONE ×2 (11:00→16:45)
--- NOTE | 2019-03-27 11:02 | EKG ---
Test Reason : Blood Pressure : / mmHG Vent. Rate : 086 BPM Atrial Rate : 086 BPM P-R Int : 138 ms QRS Dur : 110 ms QT Int : 370 ms P-R-T Axes : 035 -21 -40 degrees QTc Int : 442 ms NORMAL SINUS RHYTHM NONSPECIFIC T WAVE ABNORMALITY ABNORMAL ECG NO PREVIOUS ECGS AVAILABLE Confirmed by FRAN YANEZ MD ([id number]) on 03/27/2019 11:02:06 AM Referred By: Confirmed By:FRAN YANEZ MD
--- NOTE | 2019-03-27 11:02 | CON.ID ---
Consult Consult Specialty:: infectious diseases Referred by:: Reason for Consultation:: ac diverticulitis - History of Present Illness Chief Complaint: abd pain,vomiting History of Present Illness: history given by the son as patient cannot speak malawian 64 y/o latvian speaking female with PMhx of HTN admitted for ac abd pain and on work up showing diverticulitis patient had come to the hospital aboit one month back and was given oral medications levo and flagyl and was send home patient did alright and did not complete the course the pain came back yesterday and became worse,mostly localized to left lower quadrant currently patient with pain - History Source History Provided By: Family Member Limitations to Obtaining History: Language Barrier - Alcohol/Substance Use Hx Alcohol Use: No - Smoking History Smoking history: Never smoked Have you smoked in the past 12 months: No Home Medications - Allergies Allergies/Adverse Reactions: Allergies Allergy/AdvReac Type Severity Reaction Status Date / Time No Known Allergies Allergy Verified 03/26/19 17:21 - Home Medications Home Medications: Ambulatory Orders Hydrochlorothiazide 25 mg PO DAILY 03/27/19 Losartan Potassium 50 mg PO DAILY 03/27/19 Review of Systems - Review of Systems Constitutional: reports: Chills Eyes: reports: No Symptoms HENT: reports: No Symptoms Neck: reports: No Symptoms Cardiovascular: reports: No Symptoms Respiratory: reports: No Symptoms Gastrointestinal: reports: Abdominal Pain Musculoskeletal: reports: No Symptoms Integumentary: reports: No Symptoms Neurological: reports: No Symptoms Endocrine: reports: No Symptoms Hematology/Lymphatic: reports: No Symptoms Psychiatric: reports: No Symptoms Physical Exam Vital Signs: Vital Signs Temperature 99.1 F 03/27/19 08:00 Pulse Rate 88 03/27/19 08:00 Respiratory Rate 18 03/27/19 08:00 Blood Pressure 125/76 03/27/19 08:00 O2 Sat by Pulse Oximetry (%) 96 03/27/19 08:00 Constitutional: Yes: Well Nourished, Calm, Mild Distress Cardiovascular: Yes: Regular Rate and Rhythm Respiratory: Yes: Regular, CTA Bilaterally Gastrointestinal: Yes: Hypoactive Bowel Sounds, Tenderness (left lower quadrant) Musculoskeletal: Yes: WNL Extremities: Yes: WNL Neurological: Yes: Alert, Oriented Psychiatric: Yes: Alert, Oriented Labs: CBC, BMP 03/27/19 05:33 03/27/19 05:33 Imaging - Results Chest X-ray: Report Reviewed, Image Reviewed Cat Scan: Report Reviewed, Image Reviewed Assessment/Plan 64 y/o latvian speaking female with PMhx of HTN here for worsening lower abdominal pain. 1)Diverticulitis with bowel perforation abd pain lactic acidosis leukocytosis plan we will continue zosyn monitor lactic acid and wbc if goes up will decide further close watch npo hydration
[2019-03-27] MEDS: PANTOPRAZOLE SODIUM 40 MG VIAL IVPUSH SCH (11:30)
[2019-03-27 14:05] VITALS: BMI 32.8
--- NOTE | 2019-03-27 14:12 | PN ---
Teaching Attending Note Name of Resident: Zac Summers ATTENDING PHYSICIAN STATEMENT I saw and evaluated the patient. I reviewed the resident's note and discussed the case with the resident. I agree with the resident's findings and plan as documented. SUBJECTIVE: No fever or chills. has LLQ abd pain, has no N/V. no fever . no diarrhea . reports taking all her abx after dc form ER last month OBJECTIVE: NAD Cv : RRr Lungs: CTAB Abd: soft, TTP in all quadrants. no rebound to guarding. nl BS. Ext : No edema or erythema on LE ASSESSMENT AND PLAN: 64 y/o lady with h/o recent diverticulitis a month ago, HLD, prediabetes, Cholecystectomy and HTN who presented with abd pain and was found to have pneumoperitonium 1- Acute perforated diverticulitis 2- elevated lactic acid 3- elevated glucose plan : - d/w Id and sx team - cont zosyn. - monitor closely - reepat lactic acid in afternoon - change IVF to NS - A1c checked, indicates prediabetes . being monitored off metformin as out pt - monitor WBC d/w patient and her son at bedside
--- NOTE | 2019-03-27 15:31 | CONS ---
DATE OF CONSULTATION: 03/27/2019 REASON FOR CONSULTATION: Complicated perforated viscus presumed diverticulitis. This is a consultation requested by the emergency room physician. BRIEF HISTORY: This is a 64-year-old female who was told approximately 15 years ago that she had diverticulitis. She has had off and on symptoms since that time, including [employer] workup as it was unclear the source of her pain. She was in her usual state until approximately end of February where she came into the [facility] emergency room and was diagnosed with uncomplicated diverticulitis. She was sent on oral antibiotic. She improved somewhat, but not completely. Then yesterday she developed severe abdominal pain and returned to the emergency room. She had a CAT scan of the abdomen and pelvis, which showed significant free air and inflammatory changes around the sigmoid colon consistent with likely perforated complicated diverticulitis. The patient was not having a fever, was noted in the emergency room with normal blood pressure and her white blood cell count was only 10.8 with a shift. The patient was admitted to the hospital started on Zosyn antibiotic. Overnight, the patient does not feel worse. She has had no fever and her white blood cell count has remained relatively the same. She had a mildly elevated lactic acid, which remains mildly elevated. The patient denies vomiting, denies recent weight loss. Her last colonoscopy was 10 years ago and unremarkable and she was scheduled for a colonoscopy next week because of recent episode of diverticulitis. PAST MEDICAL HISTORY: The patient's past medical history is significant for diverticulitis, obesity, hyperlipidemia and diabetes, as well as hypertension. PAST SURGICAL HISTORY: Her past surgical history includes a laparoscopic cholecystectomy. MEDICATIONS: Her home medications include hydrochlorothiazide and losartan. ALLERGIES: She has no known drug allergies. FAMILY HISTORY: Her family history is negative for malignancy in the immediate family. SOCIAL HISTORY: Negative for alcohol, negative for tobacco. REVIEW OF SYSTEMS: General: Admits to fatigue. Cardiac: Denies chest pain. Respiratory: Denied shortness of breath or wheeze. Gastrointestinal: As in HPI. Genitourinary: Denies dysuria. Musculoskeletal: Denies joint pain. Psychiatric: Denied anxiety, pressuring voice. PHYSICAL EXAMINATION: General: On physical exam, this is an obese 64-year-old female in no distress. Vital signs: She is afebrile. HEENT: Her head is normocephalic. The sclera are anicteric. Neck: Her neck is supple. Chest: Her chest is clear. Abdomen: Her abdomen is soft. She has moderate tenderness in the left lower quadrant, as well as suprapubic tenderness. She has minimal tenderness in the upper abdomen. She has no guarding in the upper abdomen and she has minimal involuntary guarding in the lower abdomen. Extremities: Her extremities have trace edema. LABORATORY DATA: On review of her laboratory, her white blood cell count is 11.9. She has an 87% shift. Her chemistries are unremarkable with a lactic acid of 2.7. ASSESSMENT: A 64-year-old female with distant history of diverticulitis, was recently discharged from the emergency room on March 01 with uncomplicated diverticulitis, sent home on Levaquin, as well as Flagyl. The CAT scan at that time showed mild thickening of the middle third of the sigmoid colon suggestive of acute or subacute uncomplicated diverticulitis. She presents now with 1 day history of severe abdominal pain with CAT scan evidence of a perforated viscus and abdominal pain findings showing peritoneal findings in the lower abdomen. At this point she has a perforated viscus. Very likely this is complicated diverticulitis, cannot rule out perforated malignancy. The patient has been offered exploratory surgery with likely sigmoid colectomy and colostomy. This is at the benefit of eliminating the source of sepsis while being able to diagnose this etiology as cancer as a possibility. The patient, her son and her daughter, strongly declined this option. They do not wish to have a colostomy. They are also concerned with the open wound with the need for future surgery for reversal and the possibility of eventually developing an incisional hernia. Therefore they want to take every possible measure of conservative management. Based on their wishes will continue n.p.o. This should be strict until her tenderness resolves. Recommend Zosyn antibiotic to cover for E coli and other enteric and gram-negative related sharifa. I would recommend repeat CAT scan in 5 days to see if this evolves into an abscess that perhaps can be drained by the Interventional Radiology Service. If the patient deteriorates which would manifest by fever, worsening abdominal exam or pain, then she will need emergent surgery. The family and the patient understand that by not having surgery now, they risk worsening sepsis and ultimately a worse outcome and possibly . They also understand that they may be delaying the diagnosis of malignancy. At this point will avoid surgery per the patient and her family's wishes. Ultimately, the patient would benefit from a colonoscopy in 6 weeks and should strongly consider an interval laparoscopic partial colectomy. Please note that there is also a consultation by Arnol Jacobo done from today that is done under my supervision and I agree with his findings and plan. DO KORY FORMAN/[id number]
--- NOTE | 2019-03-27 15:46 | PN ---
Physical Exam: SUBJECTIVE: Patient seen and examined. pt continues to complain of pain but improved. OBJECTIVE: Vital Signs Period Temp Pulse Resp BP Sys/Arevalo Pulse Ox Last 24 Hr 97.2 F-99.1 F 87-100 18-20 107-126/63-89 95-100 GENERAL: The patient is awake, alert, and fully oriented, in mild distress. HEAD: Normal with no signs of trauma. EYES: PERRL, extraocular movements intact, sclera anicteric, conjunctiva clear. No ptosis. ENT: oropharynx clear without exudates, moist mucous membranes. NECK no JVD LUNGS: Breath sounds equal, clear to auscultation bilaterally, no wheezes, no crackles, no accessory muscle use. HEART: Regular rate and rhythm, S1, S2 without murmur, rub or gallop. ABDOMEN: Soft, tenderness all over but mainly in RLQ, nondistended, normoactive bowel sounds, no guarding, no rebound, no hepatosplenomegaly, no masses. EXTREMITIES: 2+ pulses, warm, well-perfused, no edema. PSYCH: Normal mood, normal affect. SKIN: Warm, dry, normal turgor, no rashes or lesions noted Laboratory Results - last 24 hr 03/26/19 03/26/19 03/26/19 21:50 21:50 22:16 WBC Corrected WBC (auto) RBC Hgb Hct MCV MCH MCHC RDW Plt Count MPV Absolute Neuts (auto) Neutrophils % Lymphocytes % Monocytes % Eosinophils % Basophils % Nucleated RBC % Platelet Estimate Platelet Comment PT with INR INR PTT (Actin FS) Sodium 137 Potassium 3.8 Chloride 102 Carbon Dioxide 25 Anion Gap 10 BUN 22.7 H Creatinine 0.8 Est GFR (CKD-EPI)AfAm 90.30 Est GFR (CKD-EPI)NonAf 77.91 Random Glucose 163 H Hemoglobin A1c % Lactic Acid Calcium 9.0 Total Bilirubin 0.5 AST 18 ALT 25 Alkaline Phosphatase 105 Creatine Kinase 100 Troponin I < 0.02 Total Protein 7.2 Albumin 3.6 Total Amylase 44 Lipase 74 Urine Color Yellow Urine Appearance Clear Urine pH 5.0 Ur Specific Magee 1.030 Urine Protein Negative Urine Glucose (UA) Negative Urine Ketones Trace H Urine Blood Negative Urine Nitrite Negative Urine Bilirubin Negative Urine Urobilinogen 1.0 Ur Leukocyte Esterase Negative Blood Type Antibody Screen 03/26/19 03/26/19 03/27/19 22:54 23:24 02:03 WBC Cancelled 10.8 H Corrected WBC (auto) Cancelled RBC Cancelled 5.00 Hgb Cancelled 14.6 Hct Cancelled 42.9 MCV Cancelled 85.9 MCH Cancelled 29.2 MCHC Cancelled 34.0 RDW Cancelled 13.6 Plt Count Cancelled 323 MPV Cancelled 7.5 Absolute Neuts (auto) Cancelled 9.5 H Neutrophils % Cancelled 87.2 H D Lymphocytes % Cancelled 7.9 L D Monocytes % Cancelled 4.5 Eosinophils % Cancelled 0.0 D Basophils % Cancelled 0.4 Nucleated RBC % Cancelled 0 Platelet Estimate Cancelled Platelet Comment Cancelled PT with INR INR PTT (Actin FS) Sodium Potassium Chloride Carbon Dioxide Anion Gap BUN Creatinine Est GFR (CKD-EPI)AfAm Est GFR (CKD-EPI)NonAf Random Glucose Hemoglobin A1c % Lactic Acid Calcium Total Bilirubin AST ALT Alkaline Phosphatase Creatine Kinase Troponin I Total Protein Albumin Total Amylase Lipase Urine Color Urine Appearance Urine pH Ur Specific Magee Urine Protein Urine Glucose (UA) Urine Ketones Urine Blood Urine Nitrite Urine Bilirubin Urine Urobilinogen Ur Leukocyte Esterase Blood Type O POSITIVE Antibody Screen Negative 03/27/19 03/27/19 03/27/19 03:22 03:22 03:22 WBC Corrected WBC (auto) RBC Hgb Hct MCV MCH MCHC RDW Plt Count MPV Absolute Neuts (auto) Neutrophils % Lymphocytes % Monocytes % Eosinophils % Basophils % Nucleated RBC % Platelet Estimate Platelet Comment PT with INR 14.30 H INR 1.21 H PTT (Actin FS) 31.8 Sodium Potassium Chloride Carbon Dioxide Anion Gap BUN Creatinine Est GFR (CKD-EPI)AfAm Est GFR (CKD-EPI)NonAf Random Glucose Hemoglobin A1c % Lactic Acid 2.6 H* Calcium Total Bilirubin AST ALT Alkaline Phosphatase Creatine Kinase Troponin I Total Protein Albumin Total Amylase Lipase Urine Color Urine Appearance Urine pH Ur Specific Mage[place] Urine Protein Urine Glucose (UA) Urine Ketones Urine Blood Urine Nitrite Urine Bilirubin Urine Urobilinogen Ur Leukocyte Esterase Blood Type Antibody Screen 03/27/19 03/27/19 03/27/19 05:33 05:33 05:33 WBC 11.9 H Corrected WBC (auto) RBC 4.78 Hgb 14.1 Hct 41.6 MCV 87.0 MCH 29.5 MCHC 33.9 RDW 13.8 Plt Count 315 MPV 7.7 Absolute Neuts (auto) Neutrophils % Lymphocytes % Monocytes % Eosinophils % Basophils % Nucleated RBC % Platelet Estimate Platelet Comment PT with INR INR PTT (Actin FS) Sodium 135 L Potassium 3.5 Chloride 101 Carbon Dioxide 24 Anion Gap 11 BUN 21.7 H Creatinine 0.8 Est GFR (CKD-EPI)AfAm 90.30 Est GFR (CKD-EPI)NonAf 77.91 Random Glucose 227 H Hemoglobin A1c % 6.0 Lactic Acid Calcium 8.7 Total Bilirubin AST ALT Alkaline Phosphatase Creatine Kinase Troponin I Total Protein Albumin Total Amylase Lipase Urine Color Urine Appearance Urine pH Ur Specific Mage[place] Urine Protein Urine Glucose (UA) Urine Ketones Urine Blood Urine Nitrite Urine Bilirubin Urine Urobilinogen Ur Leukocyte Esterase Blood Type Antibody Screen 03/27/19 03/27/19 06:00 08:05 WBC Corrected WBC (auto) RBC Hgb Hct MCV MCH MCHC RDW Plt Count MPV Absolute Neuts (auto) Neutrophils % Lymphocytes % Monocytes % Eosinophils % Basophils % Nucleated RBC % Platelet Estimate Platelet Comment PT with INR INR PTT (Actin FS) Sodium Potassium Chloride Carbon Dioxide Anion Gap BUN Creatinine Est GFR (CKD-EPI)AfAm Est GFR (CKD-EPI)NonAf Random Glucose Hemoglobin A1c % Lactic Acid 2.7 H* Calcium Total Bilirubin AST ALT Alkaline Phosphatase Creatine Kinase Troponin I Total Protein Albumin Total Amylase Lipase Urine Color Urine Appearance Urine pH Ur Specific Magee Urine Protein Urine Glucose (UA) Urine Ketones Urine Blood Urine Nitrite Urine Bilirubin Urine Urobilinogen Ur Leukocyte Esterase Blood Type O POSITIVE Antibody Screen Active Medications Generic Name Dose Route Start Last Admin Trade Name Freq PRN Reason Stop Dose Admin Acetaminophen 1,000 mg 03/27/19 04:08 Ofirmev Injection - IVPB Q6H PRN PAIN Sodium Chloride 1,000 mls @ 125 mls/hr 03/27/19 10:30 03/27/19 10:58 Normal Saline - IV 125 mls/hr ASDIR MARTITA Administration Piperacillin Sod/Tazobactam 50 mls @ 100 mls/hr 03/27/19 18:00 Sod 3.375 gm/ Dextrose IVPB Q8H-IV MARTITA Protocol Losartan Potassium 50 mg 03/27/19 10:00 03/27/19 11:30 Cozaar - PO 50 mg DAILY MARTITA Administration Pantoprazole Sodium 40 mg 03/27/19 10:00 03/27/19 11:30 Protonix Iv IVPUSH 40 mg DAILY MARTITA Administration ASSESSMENT/PLAN: 64 y/o hong konger speaking female with PMhx of HTN here for worsening superpubic and lower abdominal pain. Patient was seen here one month ago and diagnosed with uncomplicated diverticulitis and sent home with flagyl and levofloxacin. Diverticulitis with micro perforations on imaging official read : pneumoperitoneum due to diverticulitis but improved compared to previous study Surgery consulted, Dr. Mayfield per ID cont patient on Zosyn q8hr and monitor lactic acid and wbc IVF changed to NS due to hyperglycemia LA 2.6 then 2.7 pending repeat NPO for now Pre-op labs showed PT 14.3 INR 1.21 Tylenol for pain control close watch Per surgery, Ofirmev 1000mg q6H for pain and or fever > 100.4F, AXR in AM, Serial ABD exams,Plan for repeat ABT CT in 3-5 days if her pain improves ( comparative study) Next 24 hours will be critical. Explained to patient that we are going to treat her very conservatively with plan as outlined above to avoid surgery as patient wishes not to have a colostomy colonoscopy once complete resolution for evaluation of large bowels for mass or ulceration ect. FEN NS@125mls/hr NPO in case of need surgical procedure Pre Diabetes A1c of 6 ISS monitor changed IVF to NS HTN Holding meds for now since normotensive DVT and GI PPX SCDs Chemical prophylaxis held in anticipation of surgical procedure Protonix for GI prophylaxis - A1c checked, indicates prediabetes . being monitored off metformin as out pt - monitor WBC Visit type - Emergency Visit Emergency Visit: Yes ED Registration Date: 03/27/19 Care time: The patient presented to the Emergency Department on the above date and was hospitalized for further evaluation of their emergent condition. - New Patient This patient is new to me today: Yes Date on this admission: 03/27/19 - Critical Care Critical Care patient: No - Discharge Referral Referred to [facility] Med P.C[facility] No ATTENDING PHYSICIAN STATEMENT I saw and evaluated the patient. I reviewed the resident's note and discussed the case with the resident. I agree with the resident's findings and plan as documented. SUBJECTIVE: OBJECTIVE: ASSESSMENT AND PLAN:
[2019-03-27] MEDS: PIPERACILLIN/TAZOB 3.375 GM 3.375 GM in DEXTROSE 5%-WATER - 50 ML IVPB SCH (18:05)
[2019-03-27] MEDS: ACETAMINOPHEN 1000 MG/100 ML VIAL (NON FORMULARY) IVPB PRN (18:53)
[2019-03-28] MEDS: ACETAMINOPHEN 1000 MG/100 ML VIAL (NON FORMULARY) IVPB PRN (00:21)
[2019-03-28] MEDS ORDERED: PIPERACILLIN/TAZOBACTAM 3.375 GM VIAL IVPB ONE ×3 (01:13→17:08)
[2019-03-28] MEDS ORDERED: DEXTROSE 5%-WATER - 50 ML IVPB ONE ×3 (01:14→17:08)
[2019-03-28] MEDS: PIPERACILLIN/TAZOB 3.375 GM 3.375 GM in DEXTROSE 5%-WATER - 50 ML IVPB SCH ×3 (01:18→17:12)
--- NOTE | 2019-03-28 08:22 | PN ---
Progress Note (short form) - Note Progress Note: Pt seen and examined. Reports she has had a great improvement in her pain overnight. Has been oob to the restroom without issue, voiding no BMS or flatus. NPO. Denies cps/ob, n/v/d. Vital Signs Temp 98.4 F 03/28/19 04:00 Pulse 78 03/28/19 04:00 Resp 18 03/28/19 04:00 BP 133/62 03/28/19 04:00 Pulse Ox 96 03/27/19 08:00 Intake & Output 03/27/19 03/27/19 03/28/19 11:59 23:59 11:59 Intake Total 1475 975 Balance 1475 975 Weight 203 lb Intake: IV 1275 875 Normal Saline - 1,000 ml 1275 875 @ 125 mls/hr IV ASDIR MARTITA Rx#:[id number] IVPB 200 100 Other: Voiding Method Toilet Toilet # Unmeasured Voids Void 2 2 Bowel Movement No No Height 5 ft 6 in Body Mass Index (BMI) 32.8 Weight Measurement Method Built in Bedscale CBC, BMP 03/27/19 05:33 03/27/19 05:33 CBC, BMP 03/28/19 08:10 03/28/19 08:10 Gen: awake, alert, nad, son bedside Resp: Unlabored on RA Abdo: Soft, obese no ttp throughout, hypoactive bowel sounds in all 4 quadrants. No rebound or guarding A/P: 64 y/o east timorese speaking female with PMhx of HTN admitted yesterday after presenting with abdominal pain, found to have pockets of free air and sigmoid diverticulits on CT scan. Patient remains non-toxic appearing. Afebrile overnight, vss. Abdominal pain improved. Pt and family would like to continue conservative management in hopes of avoiding surgery. Leukocytosis worsening 13.9k today from 11.9k yesterday -NPO - strict bowel rest -IVF -GI PPX -DVT PPX -Appreciate ID reccs -Ofirmev 1000mg q6H for pain and or fever > 100.4F -Serial ABD exams -Plan for repeat Ct Monday, April 01 -Will continue to follow closely d/w attending Dr Mayfield <Osei Dean - Last Filed: 03/28/19 10:18> - Note Progress Note: agree with plan. keep npo. repeat wbc tomorrow. likely ct Monday. Pt is nontoxic and refusing surgery. <Javier Mayfield - Last Filed: 03/28/19 11:03>
[2019-03-28 09:24] LABS: BASO % 0.1 % (0-2.0); EOS % 0.2 % (0-4.5); HEMATOCRIT 38.4 % (32.4-45.2); HEMOGLOBIN 12.8 GM/dL (10.7-15.3); LYMPH % 6.5 % (8-40); MCH 29.2 pg (25.7-33.7); MCHC 33.3 g/dl (32.0-36.0); MEAN CELL VOLUME 87.6 fl (80-96); MONO % 3.2 % (3.8-10.2); PLATELET COUNT 288 K/MM3 (134-434); RBC 4.38 M/mm3 (3.60-5.2); RDW 14.3 % (11.6-15.6); WHITE BLOOD COUNT 13.9 K/mm3 (4.0-10.0)
[2019-03-28] MEDS: PANTOPRAZOLE SODIUM 40 MG VIAL IVPUSH SCH (09:51)
[2019-03-28 10:01] LABS: ALBUMIN 2.8 g/dl (3.4-5.0); BILIRUBIN,TOTAL 0.7 mg/dL (0.2-1); BLOOD UREA NITROGEN 13.4 mg/dL (7-18); CALCIUM 8.6 mg/dL (8.5-10.1); CREATININE 0.6 mg/dL (0.55-1.3); POTASSIUM 4.2 mmol/L (3.5-5.1); TOT PROT 6.1 g/dl (6.4-8.2)
--- NOTE | 2019-03-28 12:28 | PN ---
Progress Note, Physician History of Present Illness: patient still c/o of pain looks calm wbc has increased - Current Medication List Current Medications: Active Medications Acetaminophen (Ofirmev Injection -) 1,000 mg IVPB Q6H PRN PRN Reason: PAIN Last Admin: 03/28/19 00:21 Dose: 1,000 mg Heparin Sodium (Porcine) (Heparin -) 5,000 unit SQ TID MARTITA Sodium Chloride (Normal Saline -) 1,000 mls @ 125 mls/hr IV ASDIR MATRITA Last Admin: 03/27/19 20:57 Dose: 125 mls/hr Piperacillin Sod/Tazobactam (Sod 3.375 gm/ Dextrose) 50 mls @ 100 mls/hr IVPB Q8H-IV MARTITA; Protocol Last Admin: 03/28/19 09:50 Dose: 100 mls/hr Pantoprazole Sodium (Protonix Iv) 40 mg IVPUSH DAILY MARTITA Last Admin: 03/28/19 09:51 Dose: 40 mg - Objective Vital Signs: Vital Signs Temperature 99.4 F 03/28/19 10:14 Pulse Rate 105 H 03/28/19 10:14 Respiratory Rate 18 03/28/19 10:14 Blood Pressure 130/81 03/28/19 10:14 O2 Sat by Pulse Oximetry (%) 96 03/27/19 08:00 Constitutional: Yes: Calm, Mild Distress Cardiovascular: Yes: S1, S2 Respiratory: Yes: Regular, CTA Bilaterally Gastrointestinal: Yes: Soft, Tenderness, Other (absent bowel sounds) Musculoskeletal: Yes: WNL Extremities: Yes: WNL Neurological: Yes: Alert, Oriented Psychiatric: Yes: Alert, Oriented Labs: CBC, BMP 03/28/19 08:10 03/28/19 08:10 INR, PTT INR 1.21 (0.83-1.09) H 03/27/19 03:22 Assessment/Plan 64 y/o lao speaking female with PMhx of HTN here for worsening lower abdominal pain. 1)Diverticulitis with bowel perforation abd pain lactic acidosis leukocytosis plan continue zosyn will monitor wbc will d/w the team hydration rest as per the team
--- NOTE | 2019-03-28 12:31 | PN ---
Teaching Attending Note Name of Resident: Zac Summers ATTENDING PHYSICIAN STATEMENT I saw and evaluated the patient. I reviewed the resident's note and discussed the case with the resident. I agree with the resident's findings and plan as documented. SUBJECTIVE: No fever or chills. has abd pain which is a little better than before. OBJECTIVE: NAD Cv: RRR Lungs: CTAB Abd: soft, TTP suprapubic area, LLQ and LUQ. no rebound tenderness or guarding. nl BS. Ext : No edema or erythema on LE. ASSESSMENT AND PLAN: 64 y/o lady with h/o recent diverticulitis a month ago, HLD, prediabetes, Cholecystectomy and HTN who presented with abd pain and was found to have pneumoperitonium 1- Acute perforated diverticulitis 2- Elevated lactic acid: resolved 3- h/o prediabetes plan : - cont to do well, no fever or chills. abd pain and abd exam are better. Leukocytosis isslightly worse, but will monitor - monitor with serial Abd exams - cont zosyn - cont NPo and IVF - BGM tid and can change fluids to D5NS if needed - cont PPI - repeat CT on Monday - ad Heparin SQ HLOC d
[2019-03-28] MEDS: SODIUM CHLORIDE 1,000 ML IV SCH (13:53)
[2019-03-28] MEDS: HEPARIN NA (PORCINE) 5,000 UNITS/ML 1ML VIAL SQ SCH ×2 (14:09→21:53)
--- NOTE | 2019-03-28 15:17 | PN ---
Physical Exam: SUBJECTIVE: Patient seen and examined. Pt. denies any acute complaints. Pt. endorses improving abdominal pain. OBJECTIVE: Vital Signs Period Temp Pulse Resp BP Sys/Arevalo Pulse Ox Last 24 Hr 98.4 F-99.6 F 78-105 18-20 107-133/62-81 GENERAL: The patient is awake, alert, and fully oriented, in mild distress. HEAD: Normal with no signs of trauma. EYES: PERRL, extraocular movements intact, sclera anicteric, conjunctiva clear. No ptosis. ENT: oropharynx clear without exudates, moist mucous membranes. NECK no JVD LUNGS: Breath sounds equal, clear to auscultation bilaterally, no wheezes, no crackles, no accessory muscle use. HEART: Regular rate and rhythm, S1, S2 without murmur, rub or gallop. ABDOMEN: Soft, decreased diffuse tenderness most prominent in epigastrium and suprapubic regions, nondistended, normoactive bowel sounds, no guarding, EXTREMITIES: 2+ pulses, warm, well-perfused, no edema. PSYCH: Normal mood, normal affect. SKIN: Warm, dry, normal turgor, no rashes or lesions noted Laboratory Results - last 24 hr 03/27/19 03/28/19 03/28/19 16:15 08:10 08:10 WBC 13.9 H RBC 4.38 Hgb 12.8 Hct 38.4 MCV 87.6 MCH 29.2 MCHC 33.3 RDW 14.3 Plt Count 288 MPV 8.0 Absolute Neuts (auto) 12.5 H Neutrophils % 90.0 H Lymphocytes % 6.5 L Monocytes % 3.2 L Eosinophils % 0.2 D Basophils % 0.1 Nucleated RBC % 0 Sodium 140 Potassium 4.2 Chloride 107 Carbon Dioxide 27 Anion Gap 6 L BUN 13.4 Creatinine 0.6 Est GFR (CKD-EPI)AfAm 111.64 Est GFR (CKD-EPI)NonAf 96.33 POC Glucometer Random Glucose 105 Lactic Acid 1.1 Calcium 8.6 Total Bilirubin 0.7 AST 15 ALT 25 Alkaline Phosphatase 97 Total Protein 6.1 L Albumin 2.8 L 03/28/19 12:00 WBC RBC Hgb Hct MCV MCH MCHC RDW Plt Count MPV Absolute Neuts (auto) Neutrophils % Lymphocytes % Monocytes % Eosinophils % Basophils % Nucleated RBC % Sodium Potassium Chloride Carbon Dioxide Anion Gap BUN Creatinine Est GFR (CKD-EPI)AfAm Est GFR (CKD-EPI)NonAf POC Glucometer 121 Random Glucose Lactic Acid Calcium Total Bilirubin AST ALT Alkaline Phosphatase Total Protein Albumin Active Medications Current Medications Acetaminophen (Ofirmev Injection -) 1,000 mg IVPB Q6H PRN PRN Reason: PAIN Last Admin: 03/28/19 00:21 Dose: 1,000 mg Heparin Sodium (Porcine) (Heparin -) 5,000 unit SQ TID MARTITA Last Admin: 03/28/19 21:53 Dose: 5,000 unit Sodium Chloride (Normal Saline -) 1,000 mls @ 125 mls/hr IV ASDIR MARTITA Last Admin: 03/28/19 13:53 Dose: 125 mls/hr Piperacillin Sod/Tazobactam (Sod 3.375 gm/ Dextrose) 50 mls @ 100 mls/hr IVPB Q8H-IV MARTITA; Protocol Last Admin: 03/29/19 01:29 Dose: 100 mls/hr Pantoprazole Sodium (Protonix Iv) 40 mg IVPUSH DAILY MARTITA Last Admin: 03/28/19 09:51 Dose: 40 mg ASSESSMENT/PLAN: 64 y/o polish speaking female with PMhx of HTN here for worsening superpubic and lower abdominal pain. Patient was seen here one month ago and diagnosed with uncomplicated diverticulitis and sent home with flagyl and levofloxacin. Diverticulitis with micro perforations on imaging official read : pneumoperitoneum due to diverticulitis but improved compared to previous study Surgery consulted, Dr. Mayfield per ID cont patient on Zosyn q8hr and monitor lactic acid and wbc IVF changed to NS due to hyperglycemia LA 2.6 then 2.7-->1.1 NPO for now Pre-op labs showed PT 14.3 INR 1.21 Tylenol for pain control close watch Per surgery, Ofirmev 1000mg q6H for pain and or fever > 100.4F, AXR in AM, Serial ABD exams,Plan for repeat ABT CT in 3-5 days if her pain improves ( comparative study) Next 24 hours will be critical. Explained to patient that we are going to treat her very conservatively with plan as outlined above to avoid surgery as patient wishes not to have a colostomy colonoscopy once complete resolution for evaluation of large bowels for mass or ulceration ect. F/u KUB FEN NS@125mls/hr NPO in case of need surgical procedure Pre Diabetes A1c of 6 ISS monitor changed IVF to NS BGMs well controlled HTN Holding meds for now since normotensive DVT and GI PPX SCDs Chemical prophylaxis held in anticipation of surgical procedure Protonix for GI prophylaxis - A1c checked, indicates prediabetes . being monitored off metformin as out pt - monitor WBC ATTENDING PHYSICIAN STATEMENT I saw and evaluated the patient. I reviewed the resident's note and discussed the case with the resident. I agree with the resident's findings and plan as documented. SUBJECTIVE: OBJECTIVE: ASSESSMENT AND PLAN:
[2019-03-28 20:44] LABS: BASO % 0.1 % (0-2.0); EOS % 0.3 % (0-4.5); HEMATOCRIT 43.1 % (32.4-45.2); HEMOGLOBIN 13.9 GM/dL (10.7-15.3); LYMPH % 7.3 % (8-40); MCH 28.6 pg (25.7-33.7); MCHC 32.3 g/dl (32.0-36.0); MEAN CELL VOLUME 88.4 fl (80-96); MEAN PLT VOLUME 8.3 fl (7.5-11.1); MONO % 3.2 % (3.8-10.2); NEUT % 89.1 % (42.8-82.8); PLATELET COUNT 337 K/MM3 (134-434); RBC 4.88 M/mm3 (3.60-5.2); RDW 13.9 % (11.6-15.6)
[2019-03-29] MEDS ORDERED: DEXTROSE 5%-WATER - 50 ML IVPB ONE ×3 (01:05→17:04)
[2019-03-29] MEDS ORDERED: PIPERACILLIN/TAZOBACTAM 3.375 GM VIAL IVPB ONE ×3 (01:05→17:04)
[2019-03-29] MEDS: PIPERACILLIN/TAZOB 3.375 GM 3.375 GM in DEXTROSE 5%-WATER - 50 ML IVPB SCH ×3 (01:29→17:07)
[2019-03-29] MEDS: HEPARIN NA (PORCINE) 5,000 UNITS/ML 1ML VIAL SQ SCH ×3 (05:34→22:43)
[2019-03-29 07:20] LABS: BASO % 0.2 % (0-2.0); EOS % 1.2 % (0-4.5); HEMATOCRIT 36.4 % (32.4-45.2); HEMOGLOBIN 12.3 GM/dL (10.7-15.3); LYMPH % 8.6 % (8-40); MCH 29.5 pg (25.7-33.7); MCHC 33.8 g/dl (32.0-36.0); MEAN CELL VOLUME 87.2 fl (80-96); MEAN PLT VOLUME 7.8 fl (7.5-11.1); PLATELET COUNT 292 K/MM3 (134-434); RBC 4.18 M/mm3 (3.60-5.2); RDW 14.1 % (11.6-15.6); WHITE BLOOD COUNT 14.5 K/mm3 (4.0-10.0)
[2019-03-29 07:47] LABS: BLOOD UREA NITROGEN 15.4 mg/dL (7-18); CALCIUM 7.9 mg/dL (8.5-10.1); MAGNESIUM 1.8 mg/dL (1.8-2.4); POTASSIUM 3.5 mmol/L (3.5-5.1)
[2019-03-29 08:18] LABS: CREATININE 0.6 mg/dL (0.55-1.3)
--- NOTE | 2019-03-29 09:22 | PN ---
Progress Note (short form) - Note Progress Note: Pt seen and examined. Reports her pain continues to improve. She has been oob to the restroom without issue, voiding and had three BMS yesterday. She Denies cp, Sob, n/v, fever or chills. Vital Signs Temp 98.9 F 03/29/19 05:57 Pulse 85 03/29/19 05:57 Resp 20 03/29/19 05:57 BP 128/76 03/29/19 05:57 Pulse Ox 96 03/27/19 08:00 Intake & Output 03/28/19 03/28/19 03/29/19 11:59 23:59 11:59 Intake Total 975 2475 100 Balance 975 2475 100 Intake: IV 875 2375 Normal Saline - 1,000 ml 875 2375 @ 125 mls/hr IV ASDIR MARTITA Rx#:[id number] IVPB 100 100 100 Other: Voiding Method Toilet Toilet # Unmeasured Voids Void 2 1 Bowel Movement No No No Weight Measurement Method Standing Scale CBC, BMP 03/29/19 06:12 03/29/19 06:12 PE: Gen: awake, alert, nad, sitting in chair at bedside Resp: Unlabored resp on RA Abdo: Soft, obese no ttp throughout, hypoactive bowel sounds in all 4 quadrants. No rebound or guarding. <Lolly Cheng - Last Filed: 03/29/19 12:56> - Note Progress Note: Pt seen and examined last night and progress reviewed with PA today. benign abdominal exam. only factor or concern is rising wbc which may be from developing collection. cont npo. repeat ct Monday. Pt clinically well. <Javier Mayfield - Last Filed: 03/29/19 14:06> Problem List - Problems (1) Acute diverticulitis of intestine Assessment/Plan: A/P: 64 y/o fijian speaking female with PMhx of HTN admitted yesterday after presenting with abdominal pain, found to have pockets of free air and sigmoid diverticulits on CT scan. Patient remains non-toxic appearing. Afebrile overnight, vss. Abdominal pain improved. Pt and family would like to continue conservative management in hopes of avoiding surgery. Leukocytosis 14.5 today -NPO - strict bowel rest -IVF -GI PPX -DVT PPX -Trend labs -Appreciate ID reccs -Ofirmev 1000mg q6H for pain and or fever > 100.4F -Serial ABD exams -Plan for repeat Ct Monday, April 01 -Will continue to follow closely d/w attending Dr Mayfield Code(s): K57.92 - DVTRCLI OF INTEST, PART UNSP, W/O PERF OR ABSCESS W/O BLEED <Lolly Cheng - Last Filed: 03/29/19 12:56>
[2019-03-29] MEDS: PANTOPRAZOLE SODIUM 40 MG VIAL IVPUSH SCH (10:25)
[2019-03-29] MEDS: DEXTROSE 5%-LACTATED RINGERS 1,000 ML IV SCH (10:25)
--- NOTE | 2019-03-29 11:08 | PN ---
Progress Note, Physician History of Present Illness: patient feels better had a bout of dirrhoea abd pain less - Current Medication List Current Medications: Active Medications Acetaminophen (Ofirmev Injection -) 1,000 mg IVPB Q6H PRN PRN Reason: PAIN Last Admin: 03/28/19 00:21 Dose: 1,000 mg Heparin Sodium (Porcine) (Heparin -) 5,000 unit SQ TID MARTITA Last Admin: 03/29/19 05:34 Dose: 5,000 unit Sodium Chloride (Normal Saline -) 1,000 mls @ 125 mls/hr IV ASDIR MARTITA Last Admin: 03/28/19 13:53 Dose: 125 mls/hr Piperacillin Sod/Tazobactam (Sod 3.375 gm/ Dextrose) 50 mls @ 100 mls/hr IVPB Q8H-IV MARTITA; Protocol Last Admin: 03/29/19 10:25 Dose: 100 mls/hr Dextrose/Lactated Ringer's (D5-Lr -) 1,000 mls @ 75 mls/hr IV ASDIR MARTITA Stop: 03/30/19 23:19 Last Admin: 03/29/19 10:25 Dose: 75 mls/hr Pantoprazole Sodium (Protonix Iv) 40 mg IVPUSH DAILY MARTITA Last Admin: 03/29/19 10:25 Dose: 40 mg - Objective Vital Signs: Vital Signs Temperature 98.4 F 03/29/19 10:19 Pulse Rate 85 03/29/19 10:19 Respiratory Rate 18 03/29/19 10:19 Blood Pressure 135/73 03/29/19 10:19 O2 Sat by Pulse Oximetry (%) 96 03/27/19 08:00 Constitutional: Yes: Calm, Mild Distress Cardiovascular: Yes: S1, S2 Respiratory: Yes: Regular, CTA Bilaterally Gastrointestinal: Yes: Hypoactive Bowel Sounds, Other Musculoskeletal: Yes: WNL Extremities: Yes: WNL Neurological: Yes: Alert, Oriented Psychiatric: Yes: Alert, Oriented Labs: CBC, BMP 03/29/19 06:12 03/29/19 06:12 INR, PTT INR 1.21 (0.83-1.09) H 03/27/19 03:22 Assessment/Plan 64 y/o maori speaking female with PMhx of HTN here for worsening lower abdominal pain. 1)Diverticulitis with bowel perforation abd pain lactic acidosis leukocytosis plan continue zosyn wbc trending down continue monitoring rest as per the team
[2019-03-29] MEDS ORDERED: NAPH,MB-DB/K PH,MBDB POWDER PACKET PO ONE (13:41)
--- NOTE | 2019-03-29 13:43 | PN ---
Teaching Attending Note Name of Resident: Zac Summers ATTENDING PHYSICIAN STATEMENT I saw and evaluated the patient. I reviewed the resident's note and discussed the case with the resident. I agree with the resident's findings and plan as documented. SUBJECTIVE: No fever or chills. No RODRIGUEZ. had diarrhea yesterday. abd pain improved OBJECTIVE: NAD Cv: RRR Lungs: CTAB Abd: soft, minimal TTP suprapubic area, LLQ. No rebound tenderness or guarding. nl BS. Ext : No edema or erythema on LE. ASSESSMENT AND PLAN: 64 y/o lady with h/o recent diverticulitis a month ago, HLD, prediabetes, Cholecystectomy and HTN who presented with abd pain and was found to have pneumoperitonium 1- Acute perforated diverticulitis 2- spesis , resolved 3- Elevated lactic acid: resolved 4- h/o pre-diabetes plan: - Cont to do well. - change IVF to D5 LR as sugar is going down - repeat CT on Monday - cont zosyn - cont PPI - Heparin SQ - replete Phos HLOC D/w Dr. Morales and surgical team
--- NOTE | 2019-03-29 18:52 | PN ---
Physical Exam: SUBJECTIVE: Patient seen and examined. Pt was ambulating, urinating and BM but diarrheal x3. pain 3/10 OBJECTIVE: Vital Signs Period Temp Pulse Resp BP Sys/Arevalo Pulse Ox Last 24 Hr 98.1 F-99.2 F 85-107 18-20 128-149/73-89 GENERAL: The patient is awake, alert, and fully oriented, in mild distress. HEAD: Normal with no signs of trauma. EYES: PERRL, extraocular movements intact, sclera anicteric, conjunctiva clear. No ptosis. ENT: oropharynx clear without exudates, moist mucous membranes. NECK no JVD LUNGS: Breath sounds equal, clear to auscultation bilaterally, no wheezes, no crackles, no accessory muscle use. HEART: Regular rate and rhythm, S1, S2 without murmur, rub or gallop. ABDOMEN: Soft, tenderness all over but mainly in RLQ, nondistended, normoactive bowel sounds, no guarding, no rebound, no hepatosplenomegaly, no masses. EXTREMITIES: 2+ pulses, warm, well-perfused, no edema. PSYCH: Normal mood, normal affect. SKIN: Warm, dry, normal turgor, no rashes or lesions noted Laboratory Results - last 24 hr 03/28/19 03/28/19 03/29/19 20:00 21:56 05:32 WBC 19.0 H RBC 4.88 Hgb 13.9 Hct 43.1 MCV 88.4 MCH 28.6 MCHC 32.3 RDW 13.9 Plt Count 337 MPV 8.3 Absolute Neuts (auto) 16.9 H Neutrophils % 89.1 H Lymphocytes % 7.3 L Monocytes % 3.2 L Eosinophils % 0.3 Basophils % 0.1 Nucleated RBC % 0 Sodium Potassium Chloride Carbon Dioxide Anion Gap BUN Creatinine Est GFR (CKD-EPI)AfAm Est GFR (CKD-EPI)NonAf POC Glucometer 107 89 Random Glucose Calcium Phosphorus Magnesium 03/29/19 03/29/19 03/29/19 06:12 06:12 11:07 WBC 14.5 H RBC 4.18 Hgb 12.3 Hct 36.4 D MCV 87.2 MCH 29.5 MCHC 33.8 RDW 14.1 Plt Count 292 MPV 7.8 Absolute Neuts (auto) 12.3 H Neutrophils % 85.0 H Lymphocytes % 8.6 Monocytes % 5.0 Eosinophils % 1.2 D Basophils % 0.2 Nucleated RBC % 0 Sodium 140 Potassium 3.5 Chloride 107 Carbon Dioxide 26 Anion Gap 7 L BUN 15.4 Creatinine 0.6 Est GFR (CKD-EPI)AfAm 111.64 Est GFR (CKD-EPI)NonAf 96.33 POC Glucometer 94 Random Glucose 89 Calcium 7.9 L Phosphorus 2.0 L Magnesium 1.8 03/29/19 17:02 WBC RBC Hgb Hct MCV MCH MCHC RDW Plt Count MPV Absolute Neuts (auto) Neutrophils % Lymphocytes % Monocytes % Eosinophils % Basophils % Nucleated RBC % Sodium Potassium Chloride Carbon Dioxide Anion Gap BUN Creatinine Est GFR (CKD-EPI)AfAm Est GFR (CKD-EPI)NonAf POC Glucometer 123 Random Glucose Calcium Phosphorus Magnesium Active Medications Generic Name Dose Route Start Last Admin Trade Name Freq PRN Reason Stop Dose Admin Acetaminophen 1,000 mg 03/27/19 04:08 03/28/19 00:21 Ofirmev Injection - IVPB 1,000 mg Q6H PRN Administration PAIN Heparin Sodium (Porcine) 5,000 unit 03/28/19 14:00 03/29/19 14:56 Heparin - SQ 5,000 unit TID MARTITA Administration Sodium Chloride 1,000 mls @ 125 mls/hr 03/27/19 10:30 03/28/19 13:53 Normal Saline - IV 125 mls/hr ASDIR MARTITA Administration Piperacillin Sod/Tazobactam 50 mls @ 100 mls/hr 03/27/19 18:00 03/29/19 17:07 Sod 3.375 gm/ Dextrose IVPB 100 mls/hr Q8H-IV MARTITA Administration Protocol Dextrose/Lactated Ringer's 1,000 mls @ 75 mls/hr 03/29/19 10:00 03/29/19 10: 25 D5-Lr - IV 03/30/19 23:19 75 mls/hr ASDIR MARTITA Administration Pantoprazole Sodium 40 mg 03/27/19 10:00 03/29/19 10:25 Protonix Iv IVPUSH 40 mg DAILY MARTITA Administration ASSESSMENT/PLAN: 64 y/o telugu speaking female with PMhx of HTN here for worsening superpubic and lower abdominal pain. Patient was seen here one month ago and diagnosed with uncomplicated diverticulitis and sent home with flagyl and levofloxacin. Diverticulitis with micro perforations on imaging Surgery Dr. Mayfield on case per ID cont patient on Zosyn q8hr and monitor wbc IVF NS@ 125 D5NS @75 due to NPO status and blood sugar is running on the low end LA 2.6 then 2.7 repeat 1.1 cont NPO for now Pre-op labs showed PT 14.3 INR 1.21 Tylenol for pain control close watch colonoscopy once complete resolution for evaluation of large bowels for mass or ulceration ect. FEN D5NS@75mls/hr NPO in case of need surgical procedure Pre Diabetes A1c of 6 ISS monitor HTN Holding meds for now since normotensive DVT and GI PPX SCDs Chemical prophylaxis held in anticipation of surgical procedure Protonix for GI prophylaxis Visit type - Emergency Visit Emergency Visit: Yes ED Registration Date: 03/27/19 Care time: The patient presented to the Emergency Department on the above date and was hospitalized for further evaluation of their emergent condition. - New Patient This patient is new to me today: No - Critical Care Critical Care patient: No - Discharge Referral Referred to [facility] No ATTENDING PHYSICIAN STATEMENT I saw and evaluated the patient. I reviewed the resident's note and discussed the case with the resident. I agree with the resident's findings and plan as documented. SUBJECTIVE: OBJECTIVE: ASSESSMENT AND PLAN:
[2019-03-29] MEDS: ACETAMINOPHEN 1000 MG/100 ML VIAL (NON FORMULARY) IVPB PRN (22:44)
[2019-03-30] MEDS: PIPERACILLIN/TAZOB 3.375 GM 3.375 GM in DEXTROSE 5%-WATER - 50 ML IVPB SCH ×3 (02:35→17:54)
[2019-03-30] MEDS ORDERED: PIPERACILLIN/TAZOBACTAM 3.375 GM VIAL IVPB ONE ×3 (03:17→17:52)
[2019-03-30] MEDS ORDERED: DEXTROSE 5%-WATER - 50 ML IVPB ONE ×3 (03:18→17:52)
[2019-03-30] MEDS: ACETAMINOPHEN 1000 MG/100 ML VIAL (NON FORMULARY) IVPB PRN (07:08)
[2019-03-30] MEDS: HEPARIN NA (PORCINE) 5,000 UNITS/ML 1ML VIAL SQ SCH ×3 (07:09→21:39)
[2019-03-30] MEDS: SODIUM CHLORIDE 1,000 ML IV SCH (07:10)
[2019-03-30 07:31] LABS: ALBUMIN 2.3 g/dl (3.4-5.0); BILIRUBIN,TOTAL 0.8 mg/dL (0.2-1); BLOOD UREA NITROGEN 13.3 mg/dL (7-18); CALCIUM 8.1 mg/dL (8.5-10.1); CREATININE 0.5 mg/dL (0.55-1.3); POTASSIUM 3.3 mmol/L (3.5-5.1); TOT PROT 5.5 g/dl (6.4-8.2)
[2019-03-30 07:39] LABS: BASO % 0.3 % (0-2.0); EOS % 6.6 % (0-4.5); HEMATOCRIT 34.9 % (32.4-45.2); HEMOGLOBIN 12.1 GM/dL (10.7-15.3); LYMPH % 8.8 % (8-40); MCH 30.1 pg (25.7-33.7); MCHC 34.6 g/dl (32.0-36.0); MEAN CELL VOLUME 86.9 fl (80-96); MEAN PLT VOLUME 7.8 fl (7.5-11.1); NEUT % 77.3 % (42.8-82.8); PLATELET COUNT 327 K/MM3 (134-434); RBC 4.01 M/mm3 (3.60-5.2); RDW 13.8 % (11.6-15.6); WHITE BLOOD COUNT 12.4 K/mm3 (4.0-10.0)
--- NOTE | 2019-03-30 09:45 | PN ---
Progress Note, Physician History of Present Illness: patient doing well abd pain much better wbc trending down - Current Medication List Current Medications: Active Medications Heparin Sodium (Porcine) (Heparin -) 5,000 unit SQ TID [facility] Last Admin: 03/30/19 07:09 Dose: 5,000 unit Sodium Chloride (Normal Saline -) 1,000 mls @ 125 mls/hr IV ASDIR MARTITA Last Admin: 03/30/19 07:10 Dose: 125 mls/hr Piperacillin Sod/Tazobactam (Sod 3.375 gm/ Dextrose) 50 mls @ 100 mls/hr IVPB Q8H-IV MARTITA; Protocol Last Admin: 03/30/19 02:35 Dose: 100 mls/hr Dextrose/Lactated Ringer's (D5-Lr -) 1,000 mls @ 75 mls/hr IV ASDIR MARTITA Stop: 03/30/19 23:19 Last Admin: 03/29/19 10:25 Dose: 75 mls/hr Potassium Chloride (Potassium Chloride 10 Meq Premix Ivpb -) 10 meq in 100 mls @ 100 mls/hr IVPB Q60M [facility] Stop: 03/30/19 11:14 Pantoprazole Sodium (Protonix Iv) 40 mg IVPUSH DAILY [facility] Last Admin: 03/29/19 10:25 Dose: 40 mg - Objective Vital Signs: Vital Signs Temperature 98.7 F 03/30/19 01:00 Pulse Rate 97 H 03/30/19 01:00 Respiratory Rate 20 03/30/19 01:00 Blood Pressure 136/74 03/30/19 01:00 O2 Sat by Pulse Oximetry (%) 96 03/27/19 08:00 Constitutional: Yes: No Distress, Calm Cardiovascular: Yes: Regular Rate and Rhythm Respiratory: Yes: Regular, CTA Bilaterally Gastrointestinal: Yes: Soft, Hypoactive Bowel Sounds, Other (minimal tenderness) Musculoskeletal: Yes: WNL Extremities: Yes: WNL Neurological: Yes: Alert, Oriented Psychiatric: Yes: Alert, Oriented Labs: CBC, BMP 03/30/19 05:37 03/30/19 05:37 INR, PTT INR 1.21 (0.83-1.09) H 03/27/19 03:22 Assessment/Plan 64 y/o israeli speaking female with PMhx of HTN here for worsening lower abdominal pain. 1)Diverticulitis with bowel perforation abd pain lactic acidosis leukocytosis plan continue zosyn wbc trending down continue monitoring rest as per the team
[2019-03-30] MEDS: PANTOPRAZOLE SODIUM 40 MG VIAL IVPUSH SCH (10:47)
[2019-03-30] MEDS: KCL 10 MEQ IVPB 10 MEQ/100 ML INFUS.BAG IVPB SCH ×3 (11:22→14:05)
--- NOTE | 2019-03-30 11:54 | PN ---
Teaching Attending Note Name of Resident: Jaycee Collazo ATTENDING PHYSICIAN STATEMENT I saw and evaluated the patient. I reviewed the resident's note and discussed the case with the resident. I agree with the resident's findings and plan as documented. SUBJECTIVE: No fever or chills. mild Abd pain. no more diarrhea. no N/V. OBJECTIVE: NAD Cv: RRR Lungs: CTAB Abd: soft, minimal TTP suprapubic area, LLQ. No rebound tenderness or guarding. nl BS. Ext : No edema or erythema on LE. ASSESSMENT AND PLAN: 64 y/o lady with h/o recent diverticulitis a month ago, HLD, prediabetes, Cholecystectomy and HTN who presented with abd pain and was found to have pneumoperitonium 1- Acute perforated diverticulitis 2- Spesis , resolved 3- Elevated lactic acid: resolved 4- h/o pre-diabetes plan: - Cont to do well. - Cotn IVF - repeat CT on Monday - cont zosyn - blood cx neg - C diff neg - cont PPI - Heparin SQ - replete K HLOC ASSESSMENT AND PLAN:
[2019-03-30] MEDS: DEXTROSE 5%-LACTATED RINGERS 1,000 ML IV SCH (12:25)
--- NOTE | 2019-03-30 14:42 | PN ---
Physical Exam: SUBJECTIVE: Patient seen and examined. Pt mentions that her pain increased from yesterday.10/19 compared to 08/19 OBJECTIVE: Vital Signs Period Temp Pulse Resp BP Sys/Arevalo Pulse Ox Last 24 Hr 98.7 F-99.2 F 86-97 18-20 122-136/74-75 GENERAL: The patient is awake, alert, and fully oriented, in mild distress. HEAD: Normal with no signs of trauma. EYES: PERRL, extraocular movements intact, sclera anicteric, conjunctiva clear. No ptosis. ENT: oropharynx clear without exudates, moist mucous membranes. NECK no JVD LUNGS: Breath sounds equal, clear to auscultation bilaterally, no wheezes, no crackles, no accessory muscle use. HEART: Regular rate and rhythm, S1, S2 without murmur, rub or gallop. ABDOMEN: Soft, tenderness all over but mainly in RLQ, nondistended, normoactive bowel sounds, no guarding, no rebound, no hepatosplenomegaly, no masses. EXTREMITIES: 2+ pulses, warm, well-perfused, no edema. PSYCH: Normal mood, normal affect. SKIN: Warm, dry, normal turgor, no rashes or lesions noted Laboratory Results - last 24 hr 03/29/19 03/30/19 03/30/19 17:02 05:37 05:37 WBC 12.4 H RBC 4.01 Hgb 12.1 Hct 34.9 MCV 86.9 MCH 30.1 MCHC 34.6 RDW 13.8 Plt Count 327 MPV 7.8 Absolute Neuts (auto) 9.6 H Neutrophils % 77.3 Lymphocytes % 8.8 Monocytes % 7.0 Eosinophils % 6.6 H D Basophils % 0.3 Nucleated RBC % 0 Sodium 141 Potassium 3.3 L Chloride 107 Carbon Dioxide 27 Anion Gap 8 BUN 13.3 Creatinine 0.5 L Est GFR (CKD-EPI)AfAm 118.54 Est GFR (CKD-EPI)NonAf 102.28 POC Glucometer 123 Random Glucose 122 H Calcium 8.1 L Total Bilirubin 0.8 AST 17 ALT 19 Alkaline Phosphatase 93 Total Protein 5.5 L Albumin 2.3 L 03/30/19 12:43 WBC RBC Hgb Hct MCV MCH MCHC RDW Plt Count MPV Absolute Neuts (auto) Neutrophils % Lymphocytes % Monocytes % Eosinophils % Basophils % Nucleated RBC % Sodium Potassium Chloride Carbon Dioxide Anion Gap BUN Creatinine Est GFR (CKD-EPI)AfAm Est GFR (CKD-EPI)NonAf POC Glucometer 112 Random Glucose Calcium Total Bilirubin AST ALT Alkaline Phosphatase Total Protein Albumin Active Medications Generic Name Dose Route Start Last Admin Trade Name Freq PRN Reason Stop Dose Admin Heparin Sodium (Porcine) 5,000 unit 03/28/19 14:00 03/30/19 07:09 Heparin - SQ 5,000 unit TID MARTITA Administration Piperacillin Sod/Tazobactam 50 mls @ 100 mls/hr 03/27/19 18:00 03/30/19 10:46 Sod 3.375 gm/ Dextrose IVPB 100 mls/hr Q8H-IV MARTITA Administration Protocol Dextrose/Lactated Ringer's 1,000 mls @ 75 mls/hr 03/29/19 10:00 03/30/19 12: 25 D5-Lr - IV 03/30/19 23:19 75 mls/hr ASDIR MARTITA Administration Pantoprazole Sodium 40 mg 03/27/19 10:00 03/30/19 10:47 Protonix Iv IVPUSH 40 mg DAILY MARTITA Administration ASSESSMENT/PLAN: 64 y/o irish speaking female with PMhx of HTN here for worsening superpubic and lower abdominal pain. Patient was seen here one month ago and diagnosed with uncomplicated diverticulitis and sent home with flagyl and levofloxacin. Diverticulitis with micro perforations on imaging Surgery Dr. Mayfield on case per ID cont patient on Zosyn q8hr and monitor wbc. trending down still 12.4 today IVF NS@ 125 D5NS @75 due to NPO status and blood sugar is running on the low end LA 2.6 then 2.7 repeat 1.1. normalized and stable cont NPO for now Pre-op labs showed PT 14.3 INR 1.21 Tylenol for pain control close watch colonoscopy once complete resolution for evaluation of large bowels for mass or ulceration ect. FEN NPO in case of need surgical procedure hypokalemic 3.3 repleted Pre Diabetes A1c of 6 ISS monitor HTN Holding meds for now since normotensive DVT and GI PPX SCDs Chemical prophylaxis held in anticipation of surgical procedure Protonix for GI prophylaxis Visit type - Emergency Visit Emergency Visit: Yes ED Registration Date: 03/27/19 Care time: The patient presented to the Emergency Department on the above date and was hospitalized for further evaluation of their emergent condition. - New Patient This patient is new to me today: No - Critical Care Critical Care patient: No - Discharge Referral Referred to [facility] Med [facility].C.: No ATTENDING PHYSICIAN STATEMENT I saw and evaluated the patient. I reviewed the resident's note and discussed the case with the resident. I agree with the resident's findings and plan as documented. SUBJECTIVE: OBJECTIVE: ASSESSMENT AND PLAN:
[2019-03-30] MEDS ORDERED: MORPHINE SULFATE 2 MG/ML VIAL IVPUSH ONE (19:32)
[2019-03-31] MEDS ORDERED: DEXTROSE 5%-WATER - 50 ML IVPB ONE ×3 (01:13→18:04)
[2019-03-31] MEDS ORDERED: PIPERACILLIN/TAZOBACTAM 3.375 GM VIAL IVPB ONE ×3 (01:13→18:04)
[2019-03-31] MEDS: PIPERACILLIN/TAZOB 3.375 GM 3.375 GM in DEXTROSE 5%-WATER - 50 ML IVPB SCH ×3 (01:56→18:09)
[2019-03-31] MEDS: SODIUM CHLORIDE 1,000 ML IV SCH (05:18)
[2019-03-31] MEDS: HEPARIN NA (PORCINE) 5,000 UNITS/ML 1ML VIAL SQ SCH ×3 (06:06→21:32)
[2019-03-31 06:23] LABS: BASO % 0.4 % (0-2.0); EOS % 5.9 % (0-4.5); HEMOGLOBIN 12.4 GM/dL (10.7-15.3); LYMPH % 13.9 % (8-40); MCH 29.9 pg (25.7-33.7); MCHC 34.6 g/dl (32.0-36.0); MEAN CELL VOLUME 86.6 fl (80-96); MEAN PLT VOLUME 7.1 fl (7.5-11.1); MONO % 7.6 % (3.8-10.2); NEUT % 72.2 % (42.8-82.8); PLATELET COUNT 362 K/MM3 (134-434); RBC 4.16 M/mm3 (3.60-5.2); RDW 14.3 % (11.6-15.6); WHITE BLOOD COUNT 11.8 K/mm3 (4.0-10.0)
[2019-03-31 06:42] LABS: BLOOD UREA NITROGEN 11.5 mg/dL (7-18); CALCIUM 8.4 mg/dL (8.5-10.1); CREATININE 0.4 mg/dL (0.55-1.3); POTASSIUM 3.8 mmol/L (3.5-5.1)
--- NOTE | 2019-03-31 10:11 | PN ---
Progress Note, Physician History of Present Illness: stable says minimal pain wbc trending down - Current Medication List Current Medications: Active Medications Heparin Sodium (Porcine) (Heparin -) 5,000 unit SQ TID MARTITA Last Admin: 03/31/19 06:06 Dose: 5,000 unit Piperacillin Sod/Tazobactam (Sod 3.375 gm/ Dextrose) 50 mls @ 100 mls/hr IVPB Q8H-IV MARTITA; Protocol Last Admin: 03/31/19 01:56 Dose: 100 mls/hr Pantoprazole Sodium (Protonix Iv) 40 mg IVPUSH DAILY [facility] Last Admin: 03/30/19 10:47 Dose: 40 mg - Objective Vital Signs: Vital Signs Temperature 98.8 F 03/30/19 22:00 Pulse Rate 70 03/31/19 06:00 Respiratory Rate 20 03/31/19 06:00 Blood Pressure 138/62 03/31/19 06:00 O2 Sat by Pulse Oximetry (%) 96 03/27/19 08:00 Constitutional: Yes: No Distress, Calm Cardiovascular: Yes: Regular Rate and Rhythm Respiratory: Yes: Regular, CTA Bilaterally Gastrointestinal: Yes: Normal Bowel Sounds, Soft, Tenderness Musculoskeletal: Yes: WNL Extremities: Yes: WNL Neurological: Yes: Alert, Oriented Psychiatric: Yes: Alert, Oriented Labs: CBC, BMP 03/31/19 05:30 03/31/19 05:30 INR, PTT INR 1.21 (0.83-1.09) H 03/27/19 03:22 Assessment/Plan 64 y/o vietnamese speaking female with PMhx of HTN here for worsening lower abdominal pain. 1)Diverticulitis with bowel perforation abd pain lactic acidosis leukocytosis plan continue zosyn wbc trending down continue monitoring rest as per the team
[2019-03-31] MEDS: PANTOPRAZOLE SODIUM 40 MG VIAL IVPUSH SCH (10:56)
--- NOTE | 2019-03-31 14:05 | PN ---
Progress Note (short form) - Note Progress Note: surgery pt feels well. hungry. bm. afebrile abd- soft, nt,nd wbc 11 Plan- complicated diverticulitis. keep npo today. ct tomorrow to evaluate for abscess. can likley start full liquids tomorrow pending ct.
--- NOTE | 2019-03-31 17:17 | PN ---
Progress Note (short form) - Note Progress Note: Subjective: lower abdominal pain improved . 4 watery BM yesterday. one small one today Objective: Vital Signs: Last Vital Signs Temp Pulse Resp BP Pulse Ox 98.1 F 78 20 130/73 96 03/31/19 14:00 03/31/19 14:00 03/31/19 14:00 03/31/19 14:00 03/27/19 08:00 Laboratory Results - last 24 hr 03/31/19 03/31/19 03/31/19 05:30 05:30 06:05 WBC 11.8 H RBC 4.16 Hgb 12.4 Hct 36.0 MCV 86.6 MCH 29.9 MCHC 34.6 RDW 14.3 Plt Count 362 MPV 7.1 L Absolute Neuts (auto) 8.5 H Neutrophils % 72.2 Lymphocytes % 13.9 D Monocytes % 7.6 Eosinophils % 5.9 H Basophils % 0.4 Nucleated RBC % 0 Sodium 143 Potassium 3.8 Chloride 108 H Carbon Dioxide 27 Anion Gap 8 BUN 11.5 Creatinine 0.4 L Est GFR (CKD-EPI)AfAm 127.57 Est GFR (CKD-EPI)NonAf 110.07 POC Glucometer 96 Random Glucose 96 Calcium 8.4 L 03/31/19 12:00 WBC RBC Hgb Hct MCV MCH MCHC RDW Plt Count MPV Absolute Neuts (auto) Neutrophils % Lymphocytes % Monocytes % Eosinophils % Basophils % Nucleated RBC % Sodium Potassium Chloride Carbon Dioxide Anion Gap BUN Creatinine Est GFR (CKD-EPI)AfAm Est GFR (CKD-EPI)NonAf POC Glucometer 86 Random Glucose Calcium Physical Exam: NAD Cv: RRR Lungs: CTAB Abd: soft, minimal TTP suprapubic area, LLQ. No rebound tenderness or guarding. nl BS. Ext : No edema or erythema on LE. ASSESSMENT AND PLAN: 64 y/o lady with h/o recent diverticulitis a month ago, HLD, pre-diabetes, Cholecystectomy and HTN who presented with abd pain and was found to have pneumoperitonium 1- Acute perforated diverticulitis 2- Spesis , resolved 3- Elevated lactic acid: resolved 4- h/o pre-diabetes Plan: - Cont to do well. - Cont IVF - Repeat CT on Monday - cont zosyn - blood cx neg - cont PPI - Heparin SQ HLOC Visit type - Emergency Visit Emergency Visit: Yes ED Registration Date: 03/27/19 Care time: The patient presented to the Emergency Department on the above date and was hospitalized for further evaluation of their emergent condition. - New Patient This patient is new to me today: No - Critical Care Critical Care patient: No
[2019-03-31] MEDS: DEXTROSE 5%-NORMAL SALINE 1,000 ML IV SCH (18:09)
[2019-04-01] MEDS ORDERED: DEXTROSE 5%-WATER - 50 ML IVPB ONE ×3 (02:12→17:09)
[2019-04-01] MEDS ORDERED: PIPERACILLIN/TAZOBACTAM 3.375 GM VIAL IVPB ONE ×3 (02:12→17:08)
[2019-04-01] MEDS: PIPERACILLIN/TAZOB 3.375 GM 3.375 GM in DEXTROSE 5%-WATER - 50 ML IVPB SCH ×3 (02:31→17:16)
[2019-04-01] MEDS: HEPARIN NA (PORCINE) 5,000 UNITS/ML 1ML VIAL SQ SCH ×3 (06:30→21:16)
[2019-04-01] MEDS ORDERED: PT OWN MED DRAWER 7, Y5N ONE (07:00)
--- NOTE | 2019-04-01 09:05 | PN ---
Progress Note, Physician History of Present Illness: stable no new issues - Current Medication List Current Medications: Active Medications Heparin Sodium (Porcine) (Heparin -) 5,000 unit SQ TID MARTITA Last Admin: 04/01/19 06:30 Dose: 5,000 unit Piperacillin Sod/Tazobactam (Sod 3.375 gm/ Dextrose) 50 mls @ 100 mls/hr IVPB Q8H-IV MARTITA; Protocol Last Admin: 04/01/19 02:31 Dose: 100 mls/hr Dextrose/Sodium Chloride (D5-Ns -) 1,000 mls @ 100 mls/hr IV ASDIR MARTITA Last Admin: 03/31/19 18:09 Dose: 100 mls/hr Pantoprazole Sodium (Protonix Iv) 40 mg IVPUSH DAILY [facility] Last Admin: 03/31/19 10:56 Dose: 40 mg - Objective Vital Signs: Vital Signs Temperature 97.5 F L 04/01/19 06:00 Pulse Rate 78 04/01/19 06:00 Respiratory Rate 20 04/01/19 06:00 Blood Pressure 140/79 04/01/19 06:00 O2 Sat by Pulse Oximetry (%) 96 03/27/19 08:00 Constitutional: Yes: No Distress, Calm Cardiovascular: Yes: S1, S2 Respiratory: Yes: Regular, CTA Bilaterally Gastrointestinal: Yes: Soft Musculoskeletal: Yes: WNL Extremities: Yes: WNL Neurological: Yes: Alert, Oriented Psychiatric: Yes: Alert, Oriented Labs: INR, PTT INR 1.21 (0.83-1.09) H 03/27/19 03:22 Assessment/Plan 64 y/o nepali speaking female with PMhx of HTN here for worsening lower abdominal pain. 1)Diverticulitis with bowel perforation abd pain lactic acidosis leukocytosis plan continue abx await for labs
[2019-04-01 09:09] LABS: BASO % 0.5 % (0-2.0); EOS % 4.7 % (0-4.5); HEMATOCRIT 36.1 % (32.4-45.2); HEMOGLOBIN 12.3 GM/dL (10.7-15.3); LYMPH % 11.8 % (8-40); MCH 29.3 pg (25.7-33.7); MCHC 33.9 g/dl (32.0-36.0); MEAN CELL VOLUME 86.4 fl (80-96); MEAN PLT VOLUME 7.2 fl (7.5-11.1); MONO % 7.5 % (3.8-10.2); NEUT % 75.5 % (42.8-82.8); PLATELET COUNT 425 K/MM3 (134-434); RBC 4.18 M/mm3 (3.60-5.2); RDW 14.4 % (11.6-15.6); WHITE BLOOD COUNT 12.9 K/mm3 (4.0-10.0)
[2019-04-01] MEDS: PANTOPRAZOLE SODIUM 40 MG VIAL IVPUSH SCH (09:31)
[2019-04-01 09:39] LABS: MAGNESIUM 1.9 mg/dL (1.8-2.4); POTASSIUM 3.6 mmol/L (3.5-5.1)
--- NOTE | 2019-04-01 12:10 | PN ---
Progress Note (short form) - Note Progress Note: Pt states that she is having mild lower abd pain. No fevers/chills. Having loose stools. Vital Signs Period Temp Pulse Resp BP Sys/Arevalo Pulse Ox Last 24 Hr 97.5 F-98.1 F 78-88 18-20 130-158/71-88 GEN: A&0x3, NAD ABD: soft, non-distended, obese, mild lower abd/suprapubic tenderness. CBC, BMP 04/01/19 08:43 04/01/19 08:43 Microbiology 03/29/19 13:13 Stool Clostridioides difficile Antigen - Final 03/29/19 13:13 Stool Clostridioides difficile Toxin Assay - Final 03/29/19 11:11 Stool Salmonella/Shigella Culture - Final 03/29/19 11:11 Stool Escherichia coli 0157 Culture - Final NO GROWTH OF SALMONELLA OR SHIGELLA SPECIES OBTAINED NO GROWTH OF CAMPYLOBACTER SPECIES OBTAINED NO GROWTH OF YERSINIA SPECIES OBTAINED NO GROWTH OF VIBRIO SPECIES OBTAINED NO GROWTH OF E COLI 0157 OBTAINED A/P: 64 yo female wit complicated diverticulitis Pt to remain npo, plan for repeat CT scan today to evaluated for collection IV abx as per ID C diff negative, stool cultures without growth
[2019-04-01] MEDS: DEXTROSE 5%-NORMAL SALINE 1,000 ML IV SCH (12:38)
--- NOTE | 2019-04-01 13:39 | PN ---
Teaching Attending Note Name of Resident: Vicky Ortiz ATTENDING PHYSICIAN STATEMENT I saw and evaluated the patient. I reviewed the resident's note and discussed the case with the resident. I agree with the resident's findings and plan as documented. SUBJECTIVE: Abd pain in Lower abdomen but improved compared to before. no diarrhea today. No N/V. ASSESSMENT AND PLAN: 64 y/o lady with h/o recent diverticulitis a month ago, HLD, pre-diabetes, Cholecystectomy and HTN who presented with abd pain and was found to have pneumoperitonium 1- Acute perforated diverticulitis 2- Sepsis, resolved 3- Elevated lactic acid: resolved 4- H/o pre-diabetes Plan: - CT scan of Abd reviewed with . Spoke to surgical team, who d/w Dr. Mayfield. Surgery is ot an optiona t this time. I spoke to patient and her family (son and daughter) and they agreed to IR drainage. I explained that IR will try to get one or 2 abscesses only due to the location challenges. will monitor rest of Abx with serial imaging, then will decide on nxt step. - Send cx from abscess drainage - Keep NPO today, might start liquids tomorrow - Cont IVF - Cont zosyn - cont PPI - will hold heparin for drainage and resume after HLOC.
--- NOTE | 2019-04-01 18:16 | PN ---
Physical Exam: SUBJECTIVE: Patient seen and examined in the morning. Was resting comfortably. Patient endorsed approximately 5 episodes of watery loose stools overnight with lower abdominal pain during defecation only. Denies chest pain, shortness of breath, no nausea or vomiting. OBJECTIVE: Vital Signs Period Temp Pulse Resp BP Sys/Arevalo Pulse Ox Last 24 Hr 97.5 F-97.8 F 68-88 15-20 113-158/66-85 99-100 GENERAL: The patient is awake, alert, and fully oriented, in no acute distress. HEAD: Normal with no signs of trauma. EYES: PERRL, extraocular movements intact, sclera anicteric, conjunctiva clear. No ptosis. ENT: Ears normal, nares patent, oropharynx clear without exudates, moist mucous membranes. NECK: Trachea midline, full range of motion, supple. LUNGS: Breath sounds equal, clear to auscultation bilaterally, no wheezes, no crackles, no accessory muscle use. HEART: Regular rate and rhythm, S1, S2 without murmur, rub or gallop. ABDOMEN: Soft, nontender, nondistended, normoactive bowel sounds, no guarding, no rebound, no hepatosplenomegaly, no masses. EXTREMITIES: 2+ pulses, warm, well-perfused, no edema. NEUROLOGICAL: Cranial nerves II through XII grossly intact. Normal speech, gait not observed. PSYCH: Normal mood, normal affect. SKIN: Warm, dry, normal turgor, no rashes or lesions noted Laboratory Results - last 24 hr 03/31/19 04/01/19 04/01/19 18:35 06:28 08:43 WBC 12.9 H RBC 4.18 Hgb 12.3 Hct 36.1 MCV 86.4 MCH 29.3 MCHC 33.9 RDW 14.4 Plt Count 425 MPV 7.2 L Absolute Neuts (auto) 9.7 H Neutrophils % 75.5 Lymphocytes % 11.8 Monocytes % 7.5 Eosinophils % 4.7 H Basophils % 0.5 Nucleated RBC % 0 Potassium POC Glucometer 90 125 Phosphorus Magnesium 04/01/19 04/01/19 08:43 17:14 WBC RBC Hgb Hct MCV MCH MCHC RDW Plt Count MPV Absolute Neuts (auto) Neutrophils % Lymphocytes % Monocytes % Eosinophils % Basophils % Nucleated RBC % Potassium 3.6 POC Glucometer 99 Phosphorus 3.0 Magnesium 1.9 Active Medications Generic Name Dose Route Start Last Admin Trade Name Freq PRN Reason Stop Dose Admin Heparin Sodium (Porcine) 5,000 unit 03/28/19 14:00 04/01/19 14:29 Heparin - SQ Not Given TID MARTITA Piperacillin Sod/Tazobactam 50 mls @ 100 mls/hr 03/27/19 18:00 04/01/19 17:16 Sod 3.375 gm/ Dextrose IVPB 100 mls/hr Q8H-IV MARTITA Administration Protocol Dextrose/Sodium Chloride 1,000 mls @ 100 mls/hr 03/31/19 13:30 04/01/19 12:38 D5-Ns - IV 100 mls/hr ASDIR MARTITA Administration Oxycodone HCl 5 mg 04/01/19 18:08 Roxicodone - PO Q6H PRN PAIN LEVEL 6-10 Pantoprazole Sodium 40 mg 03/27/19 10:00 04/01/19 09:31 Protonix Iv IVPUSH 40 mg DAILY MARTITA Administration ASSESSMENT/PLAN: 64 F PMH significant for HTN and diverticulitis who presented with microperforation of bowel . 1) Bowel perforation - Patient vitals were stable, did not indicate any abdominal pain. - Abdominal CT was repeated today, showed multiple fluid collections within the pelvis. Pneumoperitoneum is still present. -IR was consulted and they agreed for drainage of 2 of the abscesses. -Culture abscess fluid -Continue NPO -Day 5 of Zoysn- continue. -Continue Protonix 40 mg IV 2) HTN -Will Continue hold HTN home meds F: 100 ml/hr of Normal Saline E: Monitor CMP as needed N: NPO DVT: Continue Heparin after drainage complete Dispo: Currently admitted to medicine Visit type - Emergency Visit Emergency Visit: Yes ED Registration Date: 03/27/19 Care time: The patient presented to the Emergency Department on the above date and was hospitalized for further evaluation of their emergent condition. - New Patient This patient is new to me today: Yes Date on this admission: 04/01/19 - Critical Care Critical Care patient: No ATTENDING PHYSICIAN STATEMENT I saw and evaluated the patient. I reviewed the resident's note and discussed the case with the resident. I agree with the resident's findings and plan as documented. SUBJECTIVE: OBJECTIVE: ASSESSMENT AND PLAN:
[2019-04-02] MEDS ORDERED: DEXTROSE 5%-WATER - 50 ML IVPB ONE ×3 (01:08→17:06)
[2019-04-02] MEDS ORDERED: PIPERACILLIN/TAZOBACTAM 3.375 GM VIAL IVPB ONE ×3 (01:08→17:06)
[2019-04-02] MEDS: PIPERACILLIN/TAZOB 3.375 GM 3.375 GM in DEXTROSE 5%-WATER - 50 ML IVPB SCH ×3 (01:17→17:12)
[2019-04-02] MEDS: HEPARIN NA (PORCINE) 5,000 UNITS/ML 1ML VIAL SQ SCH ×3 (06:02→21:20)
--- NOTE | 2019-04-02 08:54 | PN ---
Progress Note (short form) - Note Progress Note: Pt s/p IR drainage 2 of 4 abdominal collections s/p perforation, pt seen and examined at bedside. Patient states she has minimal abdominal pain which is focal over her LLQ. She has been oob to the restroom without issue. She Denies cp, Sob, n/v, fever or chills. Vital Signs Temp 97.8 F 04/02/19 06:02 Pulse 69 04/02/19 06:02 Resp 18 04/02/19 06:02 BP 126/66 04/02/19 06:02 Pulse Ox 100 04/01/19 21:00 Intake & Output 04/01/19 04/01/19 04/02/19 11:59 23:59 11:59 Intake Total 750 1600 850 Output Total 100 15 Balance 750 1500 835 Weight 203 lb Intake: IV 700 1500 600 D5-Ns - 1,000 ml @ 069 738 5435 600 mls/hr IV ASDIR MARTITA Rx#: [id number] IVPB 50 100 50 Oral 200 Output: Drainage 100 15 Left Lower Abdomen 80 10 Left Posterior 20 5 Other: Voiding Method Toilet Toilet # Unmeasured Voids Void 2 1 Bowel Movement No No Height 5 ft 6 in Body Mass Index (BMI) 32.8 CBC, BMP 04/01/19 08:43 PE: Gen: awake, alert, nad, Resp: Unlabored resp on RA Abdo: Soft, obese focal TTP at LLQ at site of drain-surrounding tissue intact with no evidence of tracking erythema, hypoactive bowel sounds in all 4 quadrants. No rebound or guarding. 2nd drain at left buttocks with TTP at drain site-surrounding tissue intact with no evidence of tracking erythema. B/L LE compartments soft, supple and non-tender with +2DP pulses. Problem List - Problems (1) Acute diverticulitis of intestine Assessment/Plan: A/P: 64 y/o polish speaking female with PMhx of HTN admitted yesterday after presenting with abdominal pain, found to have pockets of free air and sigmoid diverticulits on CT scan now s/p IR drainage of abscesses x2 with drains. Patient remains non-toxic appearing. Doing well clinically with no acute changes. Afebrile overnight, vss. Abdominal pain improved. WBCs 12.9 yesterday-AM labs pending -NPO - Continue bowel rest-IVF, if patient remains stable would consider starting full liquids tomorrow. -GI PPX -DVT PPX -Trend labs -Appreciate ID reccs -Serial ABD exams Evaluation and plan discussed with attending Dr Chang Code(s): K57.92 - DVTRCLI OF INTEST, PART UNSP, W/O PERF OR ABSCESS W/O BLEED
[2019-04-02 09:02] LABS: BASO % 0.5 % (0-2.0); EOS % 6.7 % (0-4.5); HEMATOCRIT 32.6 % (32.4-45.2); HEMOGLOBIN 11.2 GM/dL (10.7-15.3); LYMPH % 19.4 % (8-40); MCH 29.5 pg (25.7-33.7); MCHC 34.3 g/dl (32.0-36.0); MEAN CELL VOLUME 86.2 fl (80-96); MEAN PLT VOLUME 7.5 fl (7.5-11.1); MONO % 8.2 % (3.8-10.2); NEUT % 65.2 % (42.8-82.8); PLATELET COUNT 400 K/MM3 (134-434); RBC 3.79 M/mm3 (3.60-5.2); WHITE BLOOD COUNT 8.5 K/mm3 (4.0-10.0)
[2019-04-02] MEDS: PANTOPRAZOLE SODIUM 40 MG VIAL IVPUSH SCH (09:24)
[2019-04-02 09:40] LABS: ALBUMIN 2.1 g/dl (3.4-5.0); BILIRUBIN,TOTAL 0.4 mg/dL (0.2-1); BLOOD UREA NITROGEN 5.6 mg/dL (7-18); CALCIUM 8.1 mg/dL (8.5-10.1); CREATININE 0.4 mg/dL (0.55-1.3); MAGNESIUM 1.9 mg/dL (1.8-2.4); PHOSPHOROUS 3.4 mg/dL (2.5-4.9); POTASSIUM 3.4 mmol/L (3.5-5.1); TOT PROT 5.4 g/dl (6.4-8.2)
[2019-04-02] MEDS: oxyCODONE HCL 5 MG TABLET PO PRN ×2 (11:07→17:12)
--- NOTE | 2019-04-02 11:34 | PN ---
Progress Note, Physician History of Present Illness: stable no new issues post drainage of abscess - Current Medication List Current Medications: Active Medications Heparin Sodium (Porcine) (Heparin -) 5,000 unit SQ TID [facility] Last Admin: 04/02/19 06:02 Dose: 5,000 unit Piperacillin Sod/Tazobactam (Sod 3.375 gm/ Dextrose) 50 mls @ 100 mls/hr IVPB Q8H-IV MARTITA; Protocol Last Admin: 04/02/19 09:23 Dose: 100 mls/hr Dextrose/Sodium Chloride (D5-Ns -) 1,000 mls @ 100 mls/hr IV ASDIR [facility] Last Admin: 04/01/19 12:38 Dose: 100 mls/hr Oxycodone HCl (Roxicodone -) 5 mg PO Q6H PRN PRN Reason: PAIN LEVEL 6-10 Last Admin: 04/02/19 11:07 Dose: 5 mg Pantoprazole Sodium (Protonix Iv) 40 mg IVPUSH DAILY [facility] Last Admin: 04/02/19 09:24 Dose: 40 mg - Objective Vital Signs: Vital Signs Temperature 98.1 F 04/02/19 10:00 Pulse Rate 72 04/02/19 10:00 Respiratory Rate 16 04/02/19 10:00 Blood Pressure 133/82 04/02/19 10:00 O2 Sat by Pulse Oximetry (%) 100 04/01/19 21:00 Constitutional: Yes: No Distress, Calm Cardiovascular: Yes: S1, S2 Respiratory: Yes: Regular, CTA Bilaterally Gastrointestinal: Yes: Normal Bowel Sounds, Soft, Other (drain in place) Musculoskeletal: Yes: WNL Extremities: Yes: WNL Neurological: Yes: Alert, Oriented Psychiatric: Yes: Alert, Oriented Labs: CBC, BMP 04/02/19 08:00 04/02/19 08:00 INR, PTT INR 1.21 (0.83-1.09) H 03/27/19 03:22 Assessment/Plan 64 y/o thai speaking female with PMhx of HTN here for worsening lower abdominal pain. 1)Diverticulitis with bowel perforation abd pain lactic acidosis leukocytosis plan continue abx await for labs abd abscess
--- NOTE | 2019-04-02 14:17 | PN ---
Physical Exam: SUBJECTIVE: Patient seen and examined in the morning. Patient had no acute events overnight, had one small bowel movement. Has no abdominal pain, no diarrhea, no vomiting, no nausea, no chest pain, no shortness of breath, no dysuria. OBJECTIVE: Vital Signs Period Temp Pulse Resp BP Sys/Arevalo Pulse Ox Last 24 Hr 97.7 F-98.2 F 68-83 15-18 113-139/65-82 99-100 GENERAL: The patient is awake, alert, and fully oriented, in no acute distress. HEAD: Normal with no signs of trauma. NECK: Trachea midline, full range of motion, supple. LUNGS: Breath sounds equal, clear to auscultation bilaterally, no wheezes, no crackles, no accessory muscle use. HEART: Regular rate and rhythm, S1, S2 without murmur, rub or gallop. ABDOMEN: Soft, nontender, nondistended, normoactive bowel sounds, abdominal drain in place, and lower pelvic drain in place as well. EXTREMITIES: 2+ pulses, warm, well-perfused, no edema. Laboratory Results - last 24 hr 04/01/19 04/01/19 04/02/19 17:14 20:16 05:56 WBC RBC Hgb Hct MCV MCH MCHC RDW Plt Count MPV Absolute Neuts (auto) Neutrophils % Lymphocytes % Monocytes % Eosinophils % Basophils % Nucleated RBC % Sodium Potassium Chloride Carbon Dioxide Anion Gap BUN Creatinine Est GFR (CKD-EPI)AfAm Est GFR (CKD-EPI)NonAf POC Glucometer 99 118 103 Random Glucose Calcium Phosphorus Magnesium Total Bilirubin AST ALT Alkaline Phosphatase Total Protein Albumin 04/02/19 04/02/19 04/02/19 08:00 08:00 12:13 WBC 8.5 RBC 3.79 Hgb 11.2 Hct 32.6 MCV 86.2 MCH 29.5 MCHC 34.3 RDW 14.0 Plt Count 400 MPV 7.5 Absolute Neuts (auto) 5.6 Neutrophils % 65.2 Lymphocytes % 19.4 D Monocytes % 8.2 Eosinophils % 6.7 H Basophils % 0.5 Nucleated RBC % 0 Sodium 142 Potassium 3.4 L Chloride 107 Carbon Dioxide 30 Anion Gap 6 L BUN 5.6 L Creatinine 0.4 L Est GFR (CKD-EPI)AfAm 127.57 Est GFR (CKD-EPI)NonAf 110.07 POC Glucometer 111 Random Glucose 101 Calcium 8.1 L Phosphorus 3.4 Magnesium 1.9 Total Bilirubin 0.4 AST 49 H ALT 50 Alkaline Phosphatase 74 Total Protein 5.4 L Albumin 2.1 L Active Medications Generic Name Dose Route Start Last Admin Trade Name Freq PRN Reason Stop Dose Admin Heparin Sodium (Porcine) 5,000 unit 03/28/19 14:00 04/02/19 13:59 Heparin - SQ 5,000 unit TID MARTITA Administration Piperacillin Sod/Tazobactam 50 mls @ 100 mls/hr 03/27/19 18:00 04/02/19 09:23 Sod 3.375 gm/ Dextrose IVPB 100 mls/hr Q8H-IV MARTITA Administration Protocol Dextrose/Sodium Chloride 1,000 mls @ 100 mls/hr 03/31/19 13:30 04/01/19 12:38 D5-Ns - IV 100 mls/hr ASDIR MARTITA Administration Oxycodone HCl 5 mg 04/01/19 18:08 04/02/19 11:07 Roxicodone - PO 5 mg Q6H PRN Administration PAIN LEVEL 6-10 Pantoprazole Sodium 40 mg 03/27/19 10:00 04/02/19 09:24 Protonix Iv IVPUSH 40 mg DAILY MARTITA Administration ASSESSMENT/PLAN: 64 F PMH significant for HTN and diverticulitis who presented with microperforation of bowel . 1) Bowel perforation and abdominal abscess. - Patient vitals were stable, did not indicate any abdominal pain. -Abscess was drained yesterday. Lower abdominal drain in place. Draining serous fluid. Drained 90 ml of fluid. Lower pelvic drain in place, drained 25 ml overnight. -Culture abscess fluid pending. -Continue NPO, providing bowel rest and clear liquid diet tomorrow. -Day 6 of Zoysn- continue. -Continue Protonix 40 mg IV -Repeat CT abdomen in 1 week to assess the abscesses. 2) HTN -Will Continue hold HTN home meds F: 100 ml/hr of Normal Saline E: Monitor CMP as needed N: NPO DVT: Continue Heparin after drainage complete Dispo: Currently admitted to medicine Visit type - Emergency Visit Emergency Visit: Yes ED Registration Date: 03/27/19 Care time: The patient presented to the Emergency Department on the above date and was hospitalized for further evaluation of their emergent condition. - New Patient This patient is new to me today: No - Critical Care Critical Care patient: No ATTENDING PHYSICIAN STATEMENT I saw and evaluated the patient. I reviewed the resident's note and discussed the case with the resident. I agree with the resident's findings and plan as documented. SUBJECTIVE: OBJECTIVE: ASSESSMENT AND PLAN:
[2019-04-02] MEDS: DEXTROSE 5%-NORMAL SALINE 1,000 ML IV SCH (17:13)
--- NOTE | 2019-04-02 17:16 | PN ---
Teaching Attending Note Name of Resident: Vicky Ortiz ATTENDING PHYSICIAN STATEMENT I saw and evaluated the patient. I reviewed the resident's note and discussed the case with the resident. I agree with the resident's findings and plan as documented. SUBJECTIVE: No fever or chills. feels better . abd pain improved OBJECTIVE: NAd Cv : RRR Lungs: CTAB Abd: soft, TTP in suprapubic area, Nd, NL BS. one drain in LUQ,and one in L lower flank Ext : No edema A/P : 64 y/o lady with h/o recent diverticulitis a month ago, HLD, pre-diabetes, Cholecystectomy and HTN who presented with abd pain and was found to have pneumoperitonium 1- Acute perforated diverticulitis 2- Pelvic abscesses 3- Sepsis, resolved 4- Elevated lactic acid: resolved 5- H/o pre-diabetes Plan: - S/p IR drainage of 2 abscesses - follow cx from abscess - Keep NPO today, start clears tomorrow - Cont IVF - Cont zosyn - cont PPI - resume heparin SQ HLOC. d/w patient and her daughter
[2019-04-03] MEDS ORDERED: PIPERACILLIN/TAZOBACTAM 3.375 GM VIAL IVPB ONE ×2 (01:52→09:39)
[2019-04-03] MEDS ORDERED: DEXTROSE 5%-WATER - 50 ML IVPB ONE ×2 (01:53→09:39)
[2019-04-03] MEDS: PIPERACILLIN/TAZOB 3.375 GM 3.375 GM in DEXTROSE 5%-WATER - 50 ML IVPB SCH ×2 (02:22→10:15)
[2019-04-03] MEDS: HEPARIN NA (PORCINE) 5,000 UNITS/ML 1ML VIAL SQ SCH ×3 (06:04→21:40)
[2019-04-03 07:42] LABS: BASO % 0.4 % (0-2.0); EOS % 4.3 % (0-4.5); HEMATOCRIT 34.6 % (32.4-45.2); HEMOGLOBIN 11.5 GM/dL (10.7-15.3); LYMPH % 12.1 % (8-40); MCH 28.9 pg (25.7-33.7); MCHC 33.2 g/dl (32.0-36.0); MEAN CELL VOLUME 87.1 fl (80-96); MEAN PLT VOLUME 7.5 fl (7.5-11.1); MONO % 7.5 % (3.8-10.2); NEUT % 75.7 % (42.8-82.8); PLATELET COUNT 444 K/MM3 (134-434); RBC 3.98 M/mm3 (3.60-5.2); RDW 14.2 % (11.6-15.6); WHITE BLOOD COUNT 11.8 K/mm3 (4.0-10.0)
[2019-04-03 08:10] LABS: ALBUMIN 2.2 g/dl (3.4-5.0); BILIRUBIN,TOTAL 0.6 mg/dL (0.2-1); BLOOD UREA NITROGEN 3.3 mg/dL (7-18); CALCIUM 8.5 mg/dL (8.5-10.1); CREATININE 0.6 mg/dL (0.55-1.3); POTASSIUM 3.7 mmol/L (3.5-5.1)
--- NOTE | 2019-04-03 09:04 | PN ---
Progress Note (short form) - Note Progress Note: Pt s/p IR drainage 2 of 4 abdominal collections s/p perforation, pt seen and examined at bedside. Patient states she has minimal abdominal pain which is focal over her RLQ. She has been oob to the restroom without issue and moving her bowels. She is hungry and would like to eat. She Denies cp, Sob, n/v, fever or chills. Vital Signs Temp 97.8 F 04/03/19 06:00 Pulse 81 04/03/19 06:00 Resp 18 04/03/19 06:00 BP 135/74 04/03/19 06:00 Pulse Ox 100 04/01/19 21:00 Intake & Output 04/02/19 04/02/19 04/03/19 11:59 23:59 11:59 Intake Total 850 1150 300 Output Total 15 18 0 Balance 835 1132 300 Intake: IV 600 1100 200 D5-Ns - 1,000 ml @ 261 459 6471 200 mls/hr IV ASDIR MARTITA Rx#: [id number] IVPB 50 50 100 Oral 200 Output: Drainage 15 18 0 Left Lower Abdomen 10 15 0 Left Posterior 5 3 0 Other: Voiding Method Toilet Toilet # Unmeasured Voids Void 1 1 Bowel Movement No No CBC, BMP 04/03/19 06:45 04/03/19 06:45 PE: Gen: awake, alert, nad, Resp: Unlabored resp on RA Abdo: Soft, obese focal TTP at RLQ and no TTP at site of drain-surrounding tissue intact with no evidence of tracking erythema, No rebound or guarding. 2nd drain at left buttocks non-tender at drain site-surrounding tissue intact with no evidence of tracking erythema. B/L LE compartments soft, supple and non-tender with +2DP pulses. Problem List - Problems (1) Acute diverticulitis of intestine Assessment/Plan: A/P: 64 y/o mongolian speaking female with PMhx of HTN admitted yesterday after presenting with abdominal pain, found to have pockets of free air and sigmoid diverticulits on CT scan now s/p IR drainage of abscesses x2 with drains. Patient remains non-toxic appearing. Doing well clinically with no acute changes. Afebrile overnight, vss. Abdominal pain improved. WBCs 11.8 today -Start full liquid diet today -GI PPX -DVT PPX -Trend labs -IV ABX per ID -Re-consult surgery PRN Evaluation and plan discussed with attending Dr Chang Code(s): K57.92 - DVTRCLI OF INTEST, PART UNSP, W/O PERF OR ABSCESS W/O BLEED
[2019-04-03] MEDS: PANTOPRAZOLE SODIUM 40 MG VIAL IVPUSH SCH (10:14)
--- NOTE | 2019-04-03 10:32 | PN ---
Progress Note, Physician History of Present Illness: stable no new issues post drainage of abscess wbc trending up - Current Medication List Current Medications: Active Medications Heparin Sodium (Porcine) (Heparin -) 5,000 unit SQ TID [facility] Last Admin: 04/03/19 06:04 Dose: 5,000 unit Piperacillin Sod/Tazobactam (Sod 3.375 gm/ Dextrose) 50 mls @ 100 mls/hr IVPB Q8H-IV MARTITA; Protocol Last Admin: 04/03/19 10:15 Dose: 100 mls/hr Dextrose/Sodium Chloride (D5-Ns -) 1,000 mls @ 100 mls/hr IV ASDIR AMRTITA Last Admin: 04/02/19 17:13 Dose: 100 mls/hr Oxycodone HCl (Roxicodone -) 5 mg PO Q6H PRN PRN Reason: PAIN LEVEL 6-10 Last Admin: 04/02/19 17:12 Dose: 5 mg Pantoprazole Sodium (Protonix Iv) 40 mg IVPUSH DAILY [facility] Last Admin: 04/03/19 10:14 Dose: 40 mg - Objective Vital Signs: Vital Signs Temperature 97.8 F 04/03/19 06:00 Pulse Rate 75 04/03/19 10:19 Respiratory Rate 18 04/03/19 10:19 Blood Pressure 130/78 04/03/19 10:19 O2 Sat by Pulse Oximetry (%) 100 04/01/19 21:00 Constitutional: Yes: No Distress, Calm Cardiovascular: Yes: S1, S2 Respiratory: Yes: Regular, CTA Bilaterally Gastrointestinal: Yes: Normal Bowel Sounds, Soft Musculoskeletal: Yes: WNL Extremities: Yes: WNL Neurological: Yes: Alert, Oriented Psychiatric: Yes: Alert, Oriented Labs: CBC, BMP 04/03/19 06:45 04/03/19 06:45 INR, PTT INR 1.21 (0.83-1.09) H 03/27/19 03:22 Assessment/Plan 64 y/o new zealander speaking female with PMhx of HTN here for worsening lower abdominal pain. 1)Diverticulitis with bowel perforation abd pain lactic acidosis leukocytosis plan continue abx cx reports noted await for final plan await for identification of bacteria
--- NOTE | 2019-04-03 13:20 | PN ---
Physical Exam: SUBJECTIVE: Patient seen and examined today morning. Patient complains of some mild abdominal pain with movement. Denies any chest pain, shortness of breath, abdominal pain, dysuria, nausea, and vomiting. OBJECTIVE: Vital Signs Period Temp Pulse Resp BP Sys/Arevalo Pulse Ox Last 24 Hr 97.8 F-98.1 F 75-84 18-18 125-147/66-78 GENERAL: The patient is awake, alert, and fully oriented, in no acute distress. HEAD: Normal with no signs of trauma. NECK: Trachea midline, full range of motion, supple. LUNGS: Breath sounds equal, clear to auscultation bilaterally, no wheezes, no crackles, no accessory muscle use. HEART: Regular rate and rhythm, S1, S2 without murmur, rub or gallop. ABDOMEN: Soft, nontender, nondistended, normoactive bowel sounds, abdominal drain in place, and posterior pelvic drain in place. Drains were recently emptied, but contained <5 ml each of serous fluid. EXTREMITIES: 2+ pulses, warm, well-perfused, no edema. Laboratory Results - last 24 hr 04/02/19 04/03/19 04/03/19 17:19 06:45 06:45 WBC 11.8 H RBC 3.98 Hgb 11.5 Hct 34.6 MCV 87.1 MCH 28.9 MCHC 33.2 RDW 14.2 Plt Count 444 H MPV 7.5 Absolute Neuts (auto) 8.9 H Neutrophils % 75.7 Lymphocytes % 12.1 D Monocytes % 7.5 Eosinophils % 4.3 Basophils % 0.4 Nucleated RBC % 0 Sodium 143 Potassium 3.7 Chloride 105 Carbon Dioxide 32 Anion Gap 6 L BUN 3.3 L Creatinine 0.6 Est GFR (CKD-EPI)AfAm 111.64 Est GFR (CKD-EPI)NonAf 96.33 POC Glucometer 110 Random Glucose 109 H Calcium 8.5 Total Bilirubin 0.6 AST 33 ALT 45 Alkaline Phosphatase 76 Total Protein 6.0 L Albumin 2.2 L 04/03/19 12:22 WBC RBC Hgb Hct MCV MCH MCHC RDW Plt Count MPV Absolute Neuts (auto) Neutrophils % Lymphocytes % Monocytes % Eosinophils % Basophils % Nucleated RBC % Sodium Potassium Chloride Carbon Dioxide Anion Gap BUN Creatinine Est GFR (CKD-EPI)AfAm Est GFR (CKD-EPI)NonAf POC Glucometer 123 Random Glucose Calcium Total Bilirubin AST ALT Alkaline Phosphatase Total Protein Albumin Active Medications Generic Name Dose Route Start Last Admin Trade Name Freq PRN Reason Stop Dose Admin Heparin Sodium (Porcine) 5,000 unit 03/28/19 14:00 04/03/19 06:04 Heparin - SQ 5,000 unit TID MARTITA Administration Piperacillin Sod/Tazobactam 50 mls @ 100 mls/hr 03/27/19 18:00 04/03/19 10:15 Sod 3.375 gm/ Dextrose IVPB 100 mls/hr Q8H-IV MARTITA Administration Protocol Dextrose/Sodium Chloride 1,000 mls @ 100 mls/hr 03/31/19 13:30 04/02/19 17:13 D5-Ns - IV 100 mls/hr ASDIR MARTITA Administration Oxycodone HCl 5 mg 04/01/19 18:08 04/02/19 17:12 Roxicodone - PO 5 mg Q6H PRN Administration PAIN LEVEL 6-10 Pantoprazole Sodium 40 mg 03/27/19 10:00 04/03/19 10:14 Protonix Iv IVPUSH 40 mg DAILY MARTITA Administration ASSESSMENT/PLAN: 64 F PMH significant for HTN and diverticulitis who presented with microperforation of bowel. Managed non-operatively, repeat CT showed multiple abscess (2/4 drained by IR). 1) Bowel perforation and abdominal abscess. -Abscess was drained on 04/01 Lower abdominal drain and posterior pelvic drain in place. Drained 25 ml and 3 ml respectively yesterday. -Culture abscess fluid pending. Preliminary report shows Lactose fermenting gram negative bacilli growing from abscess culture. -As per surgery recommendation, full liquid diet started. -Day 7 of Zoysn- continue. -Continue Protonix 40 mg IV -Repeat CT abdomen in 1 week to assess the abscesses. 2) HTN -Will Continue hold HTN home meds F: 100 ml/hr of Normal Saline E: Monitor CMP as needed N: Full Liquid Diet DVT: Continue Heparin after drainage complete Dispo: Currently admitted to medicine Visit type - Emergency Visit Emergency Visit: Yes ED Registration Date: 03/27/19 Care time: The patient presented to the Emergency Department on the above date and was hospitalized for further evaluation of their emergent condition. - New Patient This patient is new to me today: No - Critical Care Critical Care patient: No ATTENDING PHYSICIAN STATEMENT I saw and evaluated the patient. I reviewed the resident's note and discussed the case with the resident. I agree with the resident's findings and plan as documented. SUBJECTIVE: OBJECTIVE: ASSESSMENT AND PLAN:
[2019-04-03] MEDS: DEXTROSE 5%-NORMAL SALINE 1,000 ML IV SCH (15:25)
--- NOTE | 2019-04-03 19:40 | PN ---
Teaching Attending Note Name of Resident: Pili Nolasco ATTENDING PHYSICIAN STATEMENT I saw and evaluated the patient. I reviewed the resident's note and discussed the case with the resident. I agree with the resident's findings and plan as documented. SUBJECTIVE: Patient is feeling better with no acute distress, no nausea or vomiting. wants to have some liquid diet. OBJECTIVE: Vital Signs Temperature 97.1 F L 04/03/19 15:00 Pulse Rate 84 04/03/19 15:00 Respiratory Rate 18 04/03/19 15:00 Blood Pressure 139/82 04/03/19 15:00 O2 Sat by Pulse Oximetry (%) 100 04/01/19 21:00 GENERAL: The patient is awake, alert, and fully oriented, in no acute distress. HEAD: Normal with no signs of trauma. EYES: PERRL, extraocular movements intact, sclera anicteric, conjunctiva clear. ENT: Ears normal, oropharynx clear without exudates, moist mucous membranes. NECK: Trachea midline, full range of motion, supple. LUNGS: Breath sounds equal, clear to auscultation bilaterally, no wheezes, no crackles, no accessory muscle use. HEART: Regular rate and rhythm, S1, S2 without murmur, rub or gallop. ABDOMEN: Soft, NT, distended, normoactive bowel sounds, no guarding, no rebound , no hepatosplenomegaly, no masses. EXTREMITIES: 2+ pulses, warm, well-perfused, no edema. NEUROLOGICAL: Cranial nerves II through XII grossly intact. Normal speech, gait not observed. PSYCH: Normal mood, normal affect. SKIN: Warm, dry, normal turgor, no rashes or lesions noted CBCD WBC 11.8 K/mm3 (4.0-10.0) H 04/03/19 06:45 RBC 3.98 M/mm3 (3.60-5.2) 04/03/19 06:45 Hgb 11.5 GM/dL (10.7-15.3) 04/03/19 06:45 Hct 34.6 % (32.4-45.2) 04/03/19 06:45 MCV 87.1 fl (80-96) 04/03/19 06:45 MCHC 33.2 g/dl (32.0-36.0) 04/03/19 06:45 RDW 14.2 % (11.6-15.6) 04/03/19 06:45 Plt Count 444 K/MM3 (134-434) H 04/03/19 06:45 MPV 7.5 fl (7.5-11.1) 04/03/19 06:45 CMP Sodium 143 mmol/L (136-145) 04/03/19 06:45 Potassium 3.7 mmol/L (3.5-5.1) 04/03/19 06:45 Chloride 105 mmol/L (98-107) 04/03/19 06:45 Carbon Dioxide 32 mmol/L (21-32) 04/03/19 06:45 Anion Gap 6 MMOL/L (8-16) L 04/03/19 06:45 BUN 3.3 mg/dL (7-18) L 04/03/19 06:45 Creatinine 0.6 mg/dL (0.55-1.3) 04/03/19 06:45 Random Glucose 109 mg/dL (74-106) H 04/03/19 06:45 Calcium 8.5 mg/dL (8.5-10.1) 04/03/19 06:45 Total Bilirubin 0.6 mg/dL (0.2-1) 04/03/19 06:45 AST 33 U/L (15-37) 04/03/19 06:45 ALT 45 U/L (13-61) 04/03/19 06:45 Alkaline Phosphatase 76 U/L (45-117) 04/03/19 06:45 Total Protein 6.0 g/dl (6.4-8.2) L 04/03/19 06:45 Albumin 2.2 g/dl (3.4-5.0) L 04/03/19 06:45 CARDIAC ENZYMES Creatine Kinase 100 U/L (26-192) 03/26/19 21:50 Troponin I < 0.02 ng/ml (0.00-0.05) 03/26/19 21:50 Current Medications Generic Name Dose Route Start Last Admin Trade Name Freq PRN Reason Stop Dose Admin Heparin Sodium (Porcine) 5,000 unit 03/28/19 14:00 04/03/19 15:25 Heparin - SQ 5,000 unit TID MARTITA Administration Dextrose/Sodium Chloride 1,000 mls @ 100 mls/hr 03/31/19 13:30 04/03/19 15:25 D5-Ns - IV 100 mls/hr ASDIR MARTITA Administration Oxycodone HCl 5 mg 04/01/19 18:08 04/02/19 17:12 Roxicodone - PO 5 mg Q6H PRN Administration PAIN LEVEL 6-10 Pantoprazole Sodium 40 mg 03/27/19 10:00 04/03/19 10:14 Protonix Iv IVPUSH 40 mg DAILY MARTITA Administration Home Medications Medication Instructions Recorded Hydrochlorothiazide 25 mg PO DAILY 03/27/19 Losartan Potassium 50 mg PO DAILY 03/27/19 Microbiology 04/01/19 16:15 Peritoneal Fluid Gram Stain - Final 04/01/19 16:15 Peritoneal Fluid Body Fluid Culture - Preliminary NO AEROBIC GROWTH, 24 HRS 04/01/19 16:15 Abscess Gram Stain - Final 04/01/19 16:15 Abscess Body Fluid Culture - Preliminary Lactose Fermenting Neg Bacilli 03/29/19 11:11 Stool Salmonella/Shigella Culture - Final NO GROWTH OF SALMONELLA OR SHIGELLA SPECIES OBTAINED 03/29/19 11:11 Stool Campylobacter Culture - Final NO GROWTH OF CAMPYLOBACTER SPECIES OBTAINED 03/29/19 11:11 Stool Yersinia Culture - Final NO GROWTH OF YERSINIA SPECIES OBTAINED 03/29/19 11:11 Stool Vibrio Culture - Final NO GROWTH OF VIBRIO SPECIES OBTAINED 03/29/19 11:11 Stool Escherichia coli 0157 Culture - Final NO GROWTH OF E COLI 0157 OBTAINED 03/29/19 13:13 Stool Clostridioides difficile Antigen - Final 03/29/19 13:13 Stool Clostridioides difficile Toxin Assay - Final 03/26/19 22:16 Urine - Urine Clean Catch Urine Culture - Final NO GROWTH OBTAINED ASSESSMENT AND PLAN: 64 y/o lady with h/o recent diverticulitis a month ago, HLD, pre-diabetes, Cholecystectomy and HTN who presented with abd pain and was found to have pneumoperitonium # Acute perforated diverticulitis s/p IR drainage of 2 abscesses , follow cx from abscess # Multiple Pelvic abscesses , clears for now dw with sx # Sepsis, resolved , on IV zosyn continue , discussed with ID # Elevated lactic acid: resolved # H/o pre-diabetes DVT: Heparin sq d/w patient and her daughter
[2019-04-04] MEDS ORDERED: DEXTROSE 5%-WATER - 50 ML IVPB ONE ×2 (01:31→09:45)
[2019-04-04] MEDS ORDERED: PIPERACILLIN/TAZOBACTAM 3.375 GM VIAL IVPB ONE ×2 (01:31→09:45)
[2019-04-04] MEDS: PIPERACILLIN/TAZOB 3.375 GM 3.375 GM in DEXTROSE 5%-WATER - 50 ML IVPB SCH ×2 (02:56→10:01)
[2019-04-04] MEDS: HEPARIN NA (PORCINE) 5,000 UNITS/ML 1ML VIAL SQ SCH ×2 (06:09→18:47)
[2019-04-04 07:34] LABS: BASO % 0.3 % (0-2.0); EOS % 3.1 % (0-4.5); HEMATOCRIT 34.7 % (32.4-45.2); HEMOGLOBIN 11.8 GM/dL (10.7-15.3); LYMPH % 12.2 % (8-40); MCH 29.3 pg (25.7-33.7); MEAN CELL VOLUME 86.2 fl (80-96); MEAN PLT VOLUME 7.2 fl (7.5-11.1); MONO % 6.2 % (3.8-10.2); NEUT % 78.2 % (42.8-82.8); PLATELET COUNT 516 K/MM3 (134-434); RBC 4.02 M/mm3 (3.60-5.2); RDW 14.3 % (11.6-15.6); WHITE BLOOD COUNT 13.7 K/mm3 (4.0-10.0)
[2019-04-04 08:43] LABS: ALBUMIN 2.3 g/dl (3.4-5.0); BILIRUBIN,TOTAL 0.4 mg/dL (0.2-1); CALCIUM 8.6 mg/dL (8.5-10.1); CREATININE 0.5 mg/dL (0.55-1.3); POTASSIUM 3.4 mmol/L (3.5-5.1); TOT PROT 6.5 g/dl (6.4-8.2)
[2019-04-04 08:58] LABS: BLOOD UREA NITROGEN 2.6 mg/dL (7-18)
--- NOTE | 2019-04-04 09:58 | PN ---
Progress Note, Physician History of Present Illness: patient says she is ok but abd pain in the rt lower quadrant - Current Medication List Current Medications: Active Medications Heparin Sodium (Porcine) (Heparin -) 5,000 unit SQ TID [facility] Last Admin: 04/04/19 06:09 Dose: 5,000 unit Dextrose/Sodium Chloride (D5-Ns -) 1,000 mls @ 100 mls/hr IV ASDIR [facility] Last Admin: 04/03/19 15:25 Dose: 100 mls/hr Piperacillin Sod/Tazobactam (Sod 3.375 gm/ Dextrose) 50 mls @ 100 mls/hr IVPB Q8H-IV [facility] Last Admin: 04/04/19 02:56 Dose: 100 mls/hr Oxycodone HCl (Roxicodone -) 5 mg PO Q6H PRN PRN Reason: PAIN LEVEL 6-10 Last Admin: 04/02/19 17:12 Dose: 5 mg Pantoprazole Sodium (Protonix Iv) 40 mg IVPUSH DAILY [facility] Last Admin: 04/03/19 10:14 Dose: 40 mg - Objective Vital Signs: Vital Signs Temperature 97.9 F 04/04/19 06:00 Pulse Rate 70 04/04/19 06:00 Respiratory Rate 18 04/04/19 06:00 Blood Pressure 138/73 04/04/19 06:00 O2 Sat by Pulse Oximetry (%) 100 04/03/19 21:00 Constitutional: Yes: Calm, Mild Distress Cardiovascular: Yes: Regular Rate and Rhythm Respiratory: Yes: Regular, CTA Bilaterally Gastrointestinal: Yes: Soft, Hypoactive Bowel Sounds Musculoskeletal: Yes: WNL Extremities: Yes: WNL Neurological: Yes: Alert, Oriented Psychiatric: Yes: Alert, Oriented Labs: CBC, BMP 04/04/19 07:00 04/04/19 07:00 INR, PTT INR 1.21 (0.83-1.09) H 03/27/19 03:22 Assessment/Plan 64 y/o arabic speaking female with PMhx of HTN here for worsening lower abdominal pain. 1)Diverticulitis with bowel perforation abd pain lactic acidosis leukocytosis abd abscess plan continue abx patients wbc has increased i am worried close watch of the wbc if it starts increasing repeat a ct scan again to see the status of abscess
[2019-04-04] MEDS: PANTOPRAZOLE SODIUM 40 MG VIAL IVPUSH SCH (10:01)
--- NOTE | 2019-04-04 13:37 | PN ---
Physical Exam: SUBJECTIVE: Patient seen and examined today morning. Patient complains of some mild abdominal pain in the right lower quadrant. Denies any chest pain, shortness of breath, abdominal pain, dysuria, nausea, and vomiting. OBJECTIVE: Vital Signs Period Temp Pulse Resp BP Sys/Arevalo Pulse Ox Last 24 Hr 97.1 F-98.1 F 70-84 18-18 130-139/73-84 100 GENERAL: The patient is awake, alert, and fully oriented, in no acute distress. HEAD: Normal with no signs of trauma. NECK: Trachea midline, full range of motion, supple. LUNGS: Breath sounds equal, clear to auscultation bilaterally, no wheezes, no crackles, no accessory muscle use. HEART: Regular rate and rhythm, S1, S2 without murmur, rub or gallop. ABDOMEN: Soft, nontender, nondistended, normoactive bowel sounds, abdominal drain in place, and posterior pelvic drain in place. Drains were recently emptied, contained no fluid in them. EXTREMITIES: 2+ pulses, warm, well-perfused, no edema. Laboratory Results - last 24 hr CBC, BMP 04/04/19 07:00 04/04/19 07:00 Active Medications Generic Name Dose Route Start Last Admin Trade Name Freq PRN Reason Stop Dose Admin Heparin Sodium (Porcine) 5,000 unit 03/28/19 14:00 04/04/19 06:09 Heparin - SQ 5,000 unit TID MARTITA Administration Dextrose/Sodium Chloride 1,000 mls @ 100 mls/hr 03/31/19 13:30 04/03/19 15:25 D5-Ns - IV 100 mls/hr ASDIR MARTITA Administration Meropenem 1 gm/ Dextrose 100 mls @ 200 mls/hr 04/04/19 18:00 IVPB Q8H-IV MARTITA Oxycodone HCl 5 mg 04/01/19 18:08 04/02/19 17:12 Roxicodone - PO 5 mg Q6H PRN Administration PAIN LEVEL 6-10 Pantoprazole Sodium 40 mg 03/27/19 10:00 04/04/19 10:01 Protonix Iv IVPUSH 40 mg DAILY MARTITA Administration ASSESSMENT/PLAN: 64 F PMH significant for HTN and diverticulitis who presented with microperforation of bowel. Managed non-operatively, repeat CT showed multiple abscess (2/4 drained by IR). 1) Bowel perforation and abdominal abscess. -Abscess was drained on 04/01 Lower abdominal drain and posterior pelvic drain in place. Drained 25 ml and 3 ml respectively yesterday. -Culture abscess fluid pending. Preliminary report shows ESBL growing E.Coli are growing in the culture. -Awaiting surgery recommendations on possible surgical intervention as bacterial culture is ESBL and WBC is rising. -Day 8 of antibiotics, changed to meropenem 1gram Q8H. -Continue Protonix 40 mg IV -NPO -CT scan 5 days 2) HTN -Will Continue hold HTN home meds F: 100 ml/hr of Normal Saline E: Monitor CMP as needed N: Full Liquid Diet DVT: Continue Heparin after drainage complete Dispo: Currently admitted to medicine Visit type - Emergency Visit Emergency Visit: Yes ED Registration Date: 03/27/19 Care time: The patient presented to the Emergency Department on the above date and was hospitalized for further evaluation of their emergent condition. - New Patient This patient is new to me today: No - Critical Care Critical Care patient: No ATTENDING PHYSICIAN STATEMENT I saw and evaluated the patient. I reviewed the resident's note and discussed the case with the resident. I agree with the resident's findings and plan as documented. SUBJECTIVE: OBJECTIVE: ASSESSMENT AND PLAN:
--- NOTE | 2019-04-04 18:19 | PN ---
Teaching Attending Note Name of Resident: Pili Nolasco ATTENDING PHYSICIAN STATEMENT I saw and evaluated the patient. I reviewed the resident's note and discussed the case with the resident. I agree with the resident's findings and plan as documented. SUBJECTIVE: RLQ tenderness with distension. OBJECTIVE: Vital Signs Temperature 98.4 F 04/04/19 14:00 Pulse Rate 78 04/04/19 14:00 Respiratory Rate 20 04/04/19 14:00 Blood Pressure 129/73 04/04/19 14:00 O2 Sat by Pulse Oximetry (%) 100 04/04/19 09:00 GENERAL: The patient is awake, alert, in no acute distress. HEAD: Normal with no signs of trauma. EYES: PERRL, EOMI, sclera anicteric, conjunctiva clear. ENT: Ears normal, oropharynx clear without exudates, moist mucous membranes. NECK: Trachea midline, full range of motion, supple. LUNGS: Breath sounds equal, clear to auscultation bilaterally, no wheezes, no crackles, no accessory muscle use. HEART: RRR, S1, S2 positive, no murmur or rub or gallop. ABDOMEN: Soft, NT, distended, normoactive bowel sounds, no guarding, no rebound , no hepatosplenomegaly, no masses. EXTREMITIES: 2+ pulses, warm, well-perfused, no edema. NEUROLOGICAL: Cranial nerves II through XII grossly intact. Normal speech, gait not observed. PSYCH: Normal mood, normal affect. SKIN: Warm, dry, normal turgor, no rashes or lesions noted CBCD WBC 13.7 K/mm3 (4.0-10.0) H 04/04/19 07:00 RBC 4.02 M/mm3 (3.60-5.2) 04/04/19 07:00 Hgb 11.8 GM/dL (10.7-15.3) 04/04/19 07:00 Hct 34.7 % (32.4-45.2) 04/04/19 07:00 MCV 86.2 fl (80-96) 04/04/19 07:00 MCHC 34.0 g/dl (32.0-36.0) 04/04/19 07:00 RDW 14.3 % (11.6-15.6) 04/04/19 07:00 Plt Count 516 K/MM3 (134-434) H 04/04/19 07:00 MPV 7.2 fl (7.5-11.1) L 04/04/19 07:00 CMP Sodium 142 mmol/L (136-145) 04/04/19 07:00 Potassium 3.4 mmol/L (3.5-5.1) L 04/04/19 07:00 Chloride 107 mmol/L (98-107) 04/04/19 07:00 Carbon Dioxide 27 mmol/L (21-32) 04/04/19 07:00 Anion Gap 8 MMOL/L (8-16) 04/04/19 07:00 BUN 2.6 mg/dL (7-18) L* 04/04/19 07:00 Creatinine 0.5 mg/dL (0.55-1.3) L 04/04/19 07:00 Random Glucose 109 mg/dL (74-106) H 04/04/19 07:00 Calcium 8.6 mg/dL (8.5-10.1) 04/04/19 07:00 Total Bilirubin 0.4 mg/dL (0.2-1) 04/04/19 07:00 AST 22 U/L (15-37) 04/04/19 07:00 ALT 35 U/L (13-61) 04/04/19 07:00 Alkaline Phosphatase 74 U/L (45-117) 04/04/19 07:00 Total Protein 6.5 g/dl (6.4-8.2) 04/04/19 07:00 Albumin 2.3 g/dl (3.4-5.0) L 04/04/19 07:00 CARDIAC ENZYMES Creatine Kinase 100 U/L (26-192) 03/26/19 21:50 Troponin I < 0.02 ng/ml (0.00-0.05) 03/26/19 21:50 Current Medications Generic Name Dose Route Start Last Admin Trade Name Freq PRN Reason Stop Dose Admin Heparin Sodium (Porcine) 5,000 unit 03/28/19 14:00 04/04/19 06:09 Heparin - SQ 5,000 unit TID MARTITA Administration Dextrose/Sodium Chloride 1,000 mls @ 100 mls/hr 03/31/19 13:30 04/03/19 15:25 D5-Ns - IV 100 mls/hr ASDIR MARTITA Administration Meropenem 1 gm/ Dextrose 100 mls @ 200 mls/hr 04/04/19 18:00 IVPB Q8H-IV MARTITA Oxycodone HCl 5 mg 04/01/19 18:08 04/02/19 17:12 Roxicodone - PO 5 mg Q6H PRN Administration PAIN LEVEL 6-10 Pantoprazole Sodium 40 mg 03/27/19 10:00 04/04/19 10:01 Protonix Iv IVPUSH 40 mg DAILY MARTITA Administration Home Medications Medication Instructions Recorded Hydrochlorothiazide 25 mg PO DAILY 03/27/19 Losartan Potassium 50 mg PO DAILY 03/27/19 Microbiology 04/01/19 16:15 Abscess Gram Stain - Final 04/01/19 16:15 Abscess Body Fluid Culture - Final Escherichia Coli Esbl [employer] 04/01/19 16:15 Abscess Anaerobic Culture - Final 04/01/19 16:15 Peritoneal Fluid Gram Stain - Final 04/01/19 16:15 Peritoneal Fluid Body Fluid Culture - Final NO GROWTH OF AEROBIC ORGANISMS AFTER 48 HOURS INCUBATION 04/01/19 16:15 Peritoneal Fluid Anaerobic Culture - Final NO ANAEROBES WERE ISOLATED 03/29/19 11:11 Stool Salmonella/Shigella Culture - Final NO GROWTH OF SALMONELLA OR SHIGELLA SPECIES OBTAINED 03/29/19 11:11 Stool Campylobacter Culture - Final NO GROWTH OF CAMPYLOBACTER SPECIES OBTAINED 03/29/19 11:11 Stool Yersinia Culture - Final NO GROWTH OF YERSINIA SPECIES OBTAINED 03/29/19 11:11 Stool Vibrio Culture - Final NO GROWTH OF VIBRIO SPECIES OBTAINED 03/29/19 11:11 Stool Escherichia coli 0157 Culture - Final NO GROWTH OF E COLI 0157 OBTAINED 03/29/19 13:13 Stool Clostridioides difficile Antigen - Final 03/29/19 13:13 Stool Clostridioides difficile Toxin Assay - Final 03/26/19 22:16 Urine - Urine Clean Catch Urine Culture - Final NO GROWTH OBTAINED ASSESSMENT AND PLAN: Patient is a 64yo female with h/o recent diverticulitis a month ago, HLD, pre- diabetes, Cholecystectomy and HTN who presented with abdominal pain and was found to have pneumoperitonium. # Acute perforated diverticulitis s/p IR drainage of 2 abscesses , follow cx from abscess # Multiple Pelvic abscesses , clears for now dw with sx # Sepsis, resolved , on IV zosyn continue , discussed with ID # Elevated lactic acid: resolved # H/o pre-diabetes DVT: Heparin sq d/w patient and her daughter patient is going for Ct abdomen and pelvis with Iv and oral contrast as per discussion with npo for now.
[2019-04-04] MEDS ORDERED: PT OWN MED DRAWER 7, Y5N ONE (18:38)
[2019-04-04] MEDS ORDERED: DEXTROSE 5%-WATER 100 ML IVPB ONE (18:57)
[2019-04-04] MEDS ORDERED: MEROPENEM 1 GM VIAL (RESTRICTED TO ID) IVPB ONE (18:57)
[2019-04-04] MEDS: MEROPENEM 1 GM in DEXTROSE 5%-WATER 100 ML IVPB SCH (19:09)
[2019-04-04] MEDS: DEXTROSE 5%-NORMAL SALINE 1,000 ML IV SCH (19:12)
[2019-04-05] MEDS: HEPARIN NA (PORCINE) 5,000 UNITS/ML 1ML VIAL SQ SCH ×4 (00:10→21:47)
[2019-04-05] MEDS ORDERED: MEROPENEM 1 GM VIAL (RESTRICTED TO ID) IVPB ONE ×3 (00:46→18:05)
[2019-04-05] MEDS ORDERED: DEXTROSE 5%-WATER 100 ML IVPB ONE ×3 (00:46→18:06)
[2019-04-05] MEDS: DEXTROSE 5%-NORMAL SALINE 1,000 ML IV SCH (01:08)
[2019-04-05] MEDS: MEROPENEM 1 GM in DEXTROSE 5%-WATER 100 ML IVPB SCH ×3 (01:09→18:13)
[2019-04-05 07:03] LABS: BASO % 0.4 % (0-2.0); EOS % 1.6 % (0-4.5); HEMATOCRIT 33.2 % (32.4-45.2); HEMOGLOBIN 11.2 GM/dL (10.7-15.3); LYMPH % 9.5 % (8-40); MCHC 33.7 g/dl (32.0-36.0); MEAN PLT VOLUME 7.2 fl (7.5-11.1); MONO % 5.4 % (3.8-10.2); NEUT % 83.1 % (42.8-82.8); PLATELET COUNT 566 K/MM3 (134-434); RBC 3.86 M/mm3 (3.60-5.2); WHITE BLOOD COUNT 16.9 K/mm3 (4.0-10.0)
[2019-04-05 08:00] LABS: ALBUMIN 2.3 g/dl (3.4-5.0); BILIRUBIN,TOTAL 0.4 mg/dL (0.2-1); CALCIUM 8.4 mg/dL (8.5-10.1); CREATININE 0.5 mg/dL (0.55-1.3); POTASSIUM 3.2 mmol/L (3.5-5.1); TOT PROT 6.5 g/dl (6.4-8.2)
[2019-04-05 08:37] LABS: BLOOD UREA NITROGEN 2.1 mg/dL (7-18)
[2019-04-05] MEDS: PANTOPRAZOLE SODIUM 40 MG VIAL IVPUSH SCH (09:03)
[2019-04-05] MEDS: KCL 10 MEQ IVPB 10 MEQ/100 ML INFUS.BAG IVPB SCH ×3 (09:47→14:37)
--- NOTE | 2019-04-05 10:48 | PN ---
Physical Exam: SUBJECTIVE: Patient seen and examined in the morning. Patient was found to have E.coli producing ESBL, was isolated from other patients. Had no acute events overnight. Complains of mild lower right abdominal pain. No fever, no nausea/ vomiting, no chest pain, no shortness of breath. OBJECTIVE: Vital Signs Period Temp Pulse Resp BP Sys/Arevalo Pulse Ox Last 24 Hr 97.5 F-98.4 F 74-78 18-20 129-137/72-82 GENERAL: The patient is awake, alert, and fully oriented, in no acute distress. HEAD: Normal with no signs of trauma. NECK: Trachea midline, full range of motion, supple. LUNGS: Breath sounds equal, clear to auscultation bilaterally, no wheezes, no crackles, no accessory muscle use. HEART: Regular rate and rhythm, S1, S2 without murmur, rub or gallop. ABDOMEN: Tender to palpation in the right suprapubic area. Drains are in place in the left lower abdomen and posterior of pelvis. No fluid seen in drains in the morning. No guarding,no rebound, hypoactive bowel sounds.light bruising of abdomen on the right side EXTREMITIES: 2+ pulses, warm, well-perfused, no edema. NEUROLOGICAL: Cranial nerves II through XII grossly intact. Normal speech. Laboratory Results - last 24 hr 04/04/19 04/05/19 04/05/19 11:51 01:10 06:00 WBC RBC Hgb Hct MCV MCH MCHC RDW Plt Count MPV Absolute Neuts (auto) Neutrophils % Lymphocytes % Monocytes % Eosinophils % Basophils % Nucleated RBC % Sodium Potassium Chloride Carbon Dioxide Anion Gap BUN Creatinine Est GFR (CKD-EPI)AfAm Est GFR (CKD-EPI)NonAf POC Glucometer 98 101 108 Random Glucose Calcium Total Bilirubin AST ALT Alkaline Phosphatase Total Protein Albumin 04/05/19 04/05/19 06:52 06:52 WBC 16.9 H RBC 3.86 Hgb 11.2 Hct 33.2 MCV 86.0 MCH 29.0 MCHC 33.7 RDW 14.0 Plt Count 566 H MPV 7.2 L Absolute Neuts (auto) 14.0 H Neutrophils % 83.1 H Lymphocytes % 9.5 D Monocytes % 5.4 Eosinophils % 1.6 Basophils % 0.4 Nucleated RBC % 0 Sodium 144 Potassium 3.2 L Chloride 107 Carbon Dioxide 28 Anion Gap 9 BUN 2.1 L* Creatinine 0.5 L Est GFR (CKD-EPI)AfAm 118.54 Est GFR (CKD-EPI)NonAf 102.28 POC Glucometer Random Glucose 113 H Calcium 8.4 L Total Bilirubin 0.4 AST 17 ALT 27 Alkaline Phosphatase 70 Total Protein 6.5 Albumin 2.3 L Active Medications Generic Name Dose Route Start Last Admin Trade Name Freq PRN Reason Stop Dose Admin Heparin Sodium (Porcine) 5,000 unit 03/28/19 14:00 04/05/19 07:12 Heparin - SQ 5,000 unit TID MARTITA Administration Dextrose/Sodium Chloride 1,000 mls @ 100 mls/hr 03/31/19 13:30 04/05/19 01:08 D5-Ns - IV 100 mls/hr ASDIR MARTITA Administration Meropenem 1 gm/ Dextrose 100 mls @ 200 mls/hr 04/04/19 18:00 04/05/19 09:02 IVPB 200 mls/hr Q8H-IV MARTITA Administration Potassium Chloride 10 meq in 100 mls @ 100 mls/hr 04/05/19 09:00 04/05/19 09: 47 Potassium Chloride 10 Meq Premix Ivpb - IVPB 04/05/19 11:59 100 mls/hr Q60M MARTITA Administration Oxycodone HCl 5 mg 04/01/19 18:08 04/02/19 17:12 Roxicodone - PO 5 mg Q6H PRN Administration PAIN LEVEL 6-10 Pantoprazole Sodium 40 mg 03/27/19 10:00 04/05/19 09:03 Protonix Iv IVPUSH 40 mg DAILY MARTITA Administration ASSESSMENT/PLAN: 64 F PMH significant for HTN and diverticulitis who presented with microperforation of bowel. Managed non-operatively, repeat CT showed multiple abscess (2/4 drained by IR). 1) Bowel perforation and abdominal abscess. -Abscess was drained on 04/01 -CT scan shows that anterior drain is not located within abscess. Posterior drain is still in place within abscess in cul de sac and abscess has shrunk significantly. Next CT scan 4 days -For repositioning of drain via IR, possibly advance diet tomorrow after procedure. -Culture abscess fluid pending. Final report shows ESBL growing E.Coli are growing in the culture. -Day 8 of antibiotics, changed to meropenem 1gram Q8H. -Continue Protonix 40 mg IV -NPO -Clinimix 100 ml/hour -Patient and patient's family considering operative intervention, also considering transfer. 2) HTN -Will Continue hold HTN home meds F: 100 ml/hr of clinimix E: Monitor CMP as needed N:Clinimix 100 ml/hr DVT: Continue Heparin 5000 unit Sub Q Dispo: Currently admitted to medicine Visit type - Emergency Visit Emergency Visit: Yes ED Registration Date: 03/27/19 Care time: The patient presented to the Emergency Department on the above date and was hospitalized for further evaluation of their emergent condition. - New Patient This patient is new to me today: No - Critical Care Critical Care patient: No ATTENDING PHYSICIAN STATEMENT I saw and evaluated the patient. I reviewed the resident's note and discussed the case with the resident. I agree with the resident's findings and plan as documented. SUBJECTIVE: OBJECTIVE: ASSESSMENT AND PLAN:
--- NOTE | 2019-04-05 11:54 | PN ---
Progress Note (short form) - Note Progress Note: surgery pt seen and examined. Had anterior drain dislodged and developed rising wbc and right groin pain. made npo yesterday and pain resolved. repeat ct yesterday shows near resolution of collections except large anterior collection with dislodged drain. previous free air around liver gone. afebrile abd- soft, nt, nd Laboratory Tests 04/03/19 04/04/19 04/05/19 06:45 07:00 06:52 WBC 11.8 H 13.7 H 16.9 H Plan- complicated diverticulitis. keep npo today. for reposition of IR catheter which will likely relieve symptoms and improved wbc. may be able to resume liquids tomorrow if improves after procedure. pt and son do not wish to proceed with surgery/colostomy and want to continue medical management. I believe this setback is from the dislodged catheter. pt may have a small fistula forming. will start clinimix at 100/hour which should give 1.1 gm protein per kg and about 420 kcal.
--- NOTE | 2019-04-05 12:03 | PN ---
Progress Note, Physician History of Present Illness: stable wbc increasing repeat ct scan noted patient going for repositioning of the catheter - Current Medication List Current Medications: Active Medications Heparin Sodium (Porcine) (Heparin -) 5,000 unit SQ TID MARTITA Last Admin: 04/05/19 07:12 Dose: 5,000 unit Meropenem 1 gm/ Dextrose 100 mls @ 200 mls/hr IVPB Q8H-IV MARTITA Last Admin: 04/05/19 09:02 Dose: 200 mls/hr Amino Acids (Clinimix -) 1,000 mls @ 100 mls/hr IV Q12H MARTITA Oxycodone HCl (Roxicodone -) 5 mg PO Q6H PRN PRN Reason: PAIN LEVEL 6-10 Last Admin: 04/02/19 17:12 Dose: 5 mg Pantoprazole Sodium (Protonix Iv) 40 mg IVPUSH DAILY [facility] Last Admin: 04/05/19 09:03 Dose: 40 mg - Objective Vital Signs: Vital Signs Temperature 97.5 F L 04/05/19 06:00 Pulse Rate 77 04/05/19 06:00 Respiratory Rate 18 04/05/19 06:00 Blood Pressure 137/72 04/05/19 06:00 O2 Sat by Pulse Oximetry (%) 100 04/04/19 09:00 Constitutional: Yes: No Distress, Calm Cardiovascular: Yes: S1, S2 Respiratory: Yes: Regular, CTA Bilaterally Gastrointestinal: Yes: Normal Bowel Sounds, Soft Musculoskeletal: Yes: WNL Extremities: Yes: WNL Neurological: Yes: Alert, Oriented Psychiatric: Yes: Alert, Oriented Labs: CBC, BMP 04/05/19 06:52 04/05/19 06:52 INR, PTT INR 1.21 (0.83-1.09) H 03/27/19 03:22 Assessment/Plan 64 y/o nepali speaking female with PMhx of HTN here for worsening lower abdominal pain. 1)Diverticulitis with bowel perforation abd pain lactic acidosis leukocytosis abd abscess plan continue abx patient for repositioning of the catheter
[2019-04-05] MEDS: AMINO ACIDS 4.25%/D5W 1,000 ML IV SCH (18:14)
--- NOTE | 2019-04-05 18:32 | PN ---
Teaching Attending Note Name of Resident: Pili Nolasco ATTENDING PHYSICIAN STATEMENT I saw and evaluated the patient. I reviewed the resident's note and discussed the case with the resident. I agree with the resident's findings and plan as documented. SUBJECTIVE: Patient is s/p repositioning of drain via IR, patient is feeling better. no fever or chills. OBJECTIVE: Vital Signs Temperature 98.1 F 04/05/19 17:11 Pulse Rate 77 04/05/19 17:11 Respiratory Rate 18 04/05/19 17:11 Blood Pressure 131/74 04/05/19 17:11 O2 Sat by Pulse Oximetry (%) 100 04/05/19 13:25 GENERAL: The patient is awake, alert, and NAD. HEAD: Normal with no signs of trauma. EYES: PERRL, extraocular movements intact, sclera anicteric, conjunctiva clear. ENT: Ears normal, oropharynx clear without exudates, moist mucous membranes. NECK: Trachea midline, full range of motion, supple. LUNGS: Breath sounds equal, clear to auscultation bilaterally, no wheezes, no crackles, no accessory muscle use. HEART: Regular rate and rhythm, S1, S2 without murmur, rub or gallop. ABDOMEN: Soft, NT, distended, 2 drainages , one drainaing and the other no drainage, +BS, no guarding, no rebound, no hepatosplenomegaly, no masses. EXTREMITIES: 2+ pulses, warm, well-perfused, no edema. NEUROLOGICAL: Cranial nerves II through XII grossly intact. Normal speech, gait not observed. PSYCH: Normal mood, normal affect. SKIN: Warm, dry, normal turgor, no rashes or lesions noted CBCD WBC 16.9 K/mm3 (4.0-10.0) H 04/05/19 06:52 RBC 3.86 M/mm3 (3.60-5.2) 04/05/19 06:52 Hgb 11.2 GM/dL (10.7-15.3) 04/05/19 06:52 Hct 33.2 % (32.4-45.2) 04/05/19 06:52 MCV 86.0 fl (80-96) 04/05/19 06:52 MCHC 33.7 g/dl (32.0-36.0) 04/05/19 06:52 RDW 14.0 % (11.6-15.6) 04/05/19 06:52 Plt Count 566 K/MM3 (134-434) H 04/05/19 06:52 MPV 7.2 fl (7.5-11.1) L 04/05/19 06:52 CMP Sodium 144 mmol/L (136-145) 04/05/19 06:52 Potassium 3.2 mmol/L (3.5-5.1) L 04/05/19 06:52 Chloride 107 mmol/L (98-107) 04/05/19 06:52 Carbon Dioxide 28 mmol/L (21-32) 04/05/19 06:52 Anion Gap 9 MMOL/L (8-16) 04/05/19 06:52 BUN 2.1 mg/dL (7-18) L* 04/05/19 06:52 Creatinine 0.5 mg/dL (0.55-1.3) L 04/05/19 06:52 Random Glucose 113 mg/dL (74-106) H 04/05/19 06:52 Calcium 8.4 mg/dL (8.5-10.1) L 04/05/19 06:52 Total Bilirubin 0.4 mg/dL (0.2-1) 04/05/19 06:52 AST 17 U/L (15-37) 04/05/19 06:52 ALT 27 U/L (13-61) 04/05/19 06:52 Alkaline Phosphatase 70 U/L (45-117) 04/05/19 06:52 Total Protein 6.5 g/dl (6.4-8.2) 04/05/19 06:52 Albumin 2.3 g/dl (3.4-5.0) L 04/05/19 06:52 CARDIAC ENZYMES Creatine Kinase 100 U/L (26-192) 03/26/19 21:50 Troponin I < 0.02 ng/ml (0.00-0.05) 03/26/19 21:50 Current Medications Generic Name Dose Route Start Last Admin Trade Name Freq PRN Reason Stop Dose Admin Heparin Sodium (Porcine) 5,000 unit 03/28/19 14:00 04/05/19 14:38 Heparin - SQ 5,000 unit TID MARTITA Administration Meropenem 1 gm/ Dextrose 100 mls @ 200 mls/hr 10/24/19 18:00 04/05/19 18:13 IVPB 200 mls/hr Q8H-IV MARTITA Administration Amino Acids 1,000 mls @ 100 mls/hr 04/05/19 12:00 04/05/19 18:14 Clinimix - IV 100 mls/hr Q12H MARTITA Administration Oxycodone HCl 5 mg 04/01/19 18:08 04/02/19 17:12 Roxicodone - PO 5 mg Q6H PRN Administration PAIN LEVEL 6-10 Pantoprazole Sodium 40 mg 03/27/19 10:00 04/05/19 09:03 Protonix Iv IVPUSH 40 mg DAILY MARTITA Administration Home Medications Medication Instructions Recorded Hydrochlorothiazide 25 mg PO DAILY 03/27/19 Losartan Potassium 50 mg PO DAILY 03/27/19 Microbiology 04/01/19 16:15 Abscess Gram Stain - Final 04/01/19 16:15 Abscess Body Fluid Culture - Final Escherichia Coli Esbl Cigar Sorter 04/01/19 16:15 Abscess Anaerobic Culture - Final 04/01/19 16:15 Peritoneal Fluid Gram Stain - Final 04/01/19 16:15 Peritoneal Fluid Body Fluid Culture - Final NO GROWTH OF AEROBIC ORGANISMS AFTER 48 HOURS INCUBATION 04/01/19 16:15 Peritoneal Fluid Anaerobic Culture - Final NO ANAEROBES WERE ISOLATED 03/29/19 11:11 Stool Salmonella/Shigella Culture - Final NO GROWTH OF SALMONELLA OR SHIGELLA SPECIES OBTAINED 03/29/19 11:11 Stool Campylobacter Culture - Final NO GROWTH OF CAMPYLOBACTER SPECIES OBTAINED 03/29/19 11:11 Stool Yersinia Culture - Final NO GROWTH OF YERSINIA SPECIES OBTAINED 03/29/19 11:11 Stool Vibrio Culture - Final NO GROWTH OF VIBRIO SPECIES OBTAINED 03/29/19 11:11 Stool Escherichia coli 0157 Culture - Final NO GROWTH OF E COLI 0157 OBTAINED 03/29/19 13:13 Stool Clostridioides difficile Antigen - Final 03/29/19 13:13 Stool Clostridioides difficile Toxin Assay - Final 03/26/19 22:16 Urine - Urine Clean Catch Urine Culture - Final NO GROWTH OBTAINED CT of abdomen: persistent pneumoperitoneum, less air as compared to prior imaging. Hepatic steatosis. multiple fluid collections within the pelvis with evidence of acute diverticulitis. ASSESSMENT AND PLAN: Patient is a 64yo female with h/o recent diverticulitis a month ago, HLD, pre- diabetes, Cholecystectomy and HTN who presented with abd pain and was found to have pneumoperitonium with multiple fluid collections and abscesses. # Complicated perforated diverticulitis continue NPO, s/p repositioning of IR catheter , IV meropenem 1gram daily. ID on the case. pt and son do not wish to proceed with surgery/colostomy and want to continue medical management. As per surgeon , patient has a small fistula forming. continue clinimix at 100/hour which should give 1.1 gm protein per kg and about 420 kcal. # Multiple Pelvic abscesses , NPO for now, on IV meropenem # Elevated lactic acid: resolved # H/o pre-diabetes DVT: Heparin sq
[2019-04-05] MEDS: oxyCODONE HCL 5 MG TABLET PO PRN (23:52)
[2019-04-06] MEDS: AMINO ACIDS 4.25%/D5W 1,000 ML IV SCH ×4 (01:01→13:30)
[2019-04-06] MEDS ORDERED: MEROPENEM 1 GM VIAL (RESTRICTED TO ID) IVPB ONE ×2 (02:17→08:49)
[2019-04-06] MEDS ORDERED: DEXTROSE 5%-WATER 100 ML IVPB ONE ×2 (02:17→08:49)
[2019-04-06] MEDS ORDERED: ACETAMINOPHEN 1000 MG/100 ML VIAL (NON FORMULARY) IVPB ONE ×2 (02:19→02:52)
[2019-04-06] MEDS: MEROPENEM 1 GM in DEXTROSE 5%-WATER 100 ML IVPB SCH ×3 (02:23→18:56)
[2019-04-06] MEDS: HEPARIN NA (PORCINE) 5,000 UNITS/ML 1ML VIAL SQ SCH ×3 (06:16→22:09)
[2019-04-06 07:50] LABS: BASO % 0.7 % (0-2.0); EOS % 4.1 % (0-4.5); HEMATOCRIT 33.4 % (32.4-45.2); HEMOGLOBIN 11.3 GM/dL (10.7-15.3); LYMPH % 18.4 % (8-40); MCH 29.6 pg (25.7-33.7); MCHC 33.9 g/dl (32.0-36.0); MEAN CELL VOLUME 87.4 fl (80-96); MEAN PLT VOLUME 7.4 fl (7.5-11.1); MONO % 7.6 % (3.8-10.2); NEUT % 69.2 % (42.8-82.8); PLATELET COUNT 567 K/MM3 (134-434); RBC 3.82 M/mm3 (3.60-5.2); RDW 13.8 % (11.6-15.6); WHITE BLOOD COUNT 8.4 K/mm3 (4.0-10.0)
[2019-04-06 08:19] LABS: ALBUMIN 2.2 g/dl (3.4-5.0); BILIRUBIN,TOTAL 0.4 mg/dL (0.2-1); BLOOD UREA NITROGEN 11.3 mg/dL (7-18); CALCIUM 8.8 mg/dL (8.5-10.1); CREATININE 0.5 mg/dL (0.55-1.3); POTASSIUM 3.9 mmol/L (3.5-5.1); TOT PROT 6.3 g/dl (6.4-8.2)
[2019-04-06] MEDS: PANTOPRAZOLE SODIUM 40 MG VIAL IVPUSH SCH (09:03)
--- NOTE | 2019-04-06 09:40 | PN ---
Progress Note (short form) - Note Progress Note: surgery pt seen and examined. wbc now normal. 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 any surgery now requires and ostomy and she wishes to continue to try to avoid. afebrile abd- soft, nt, nd, sumit anterior with pus Laboratory Tests 04/05/19 04/06/19 06:52 06:45 WBC 16.9 H 8.4 Plan- complicated diverticulitis. cont npo. cont drains, cont iv abx. poss liquids Monday. cont clinimix. if unable to tolerate liquids Monday will need picc line and full tpn +/- surgery if pt agreeable.
--- NOTE | 2019-04-06 11:06 | PN ---
Progress Note (short form) - Note Progress Note: Patient is feeling better, no fever or chills, the drain is draining well. Vital Signs Temperature 97.6 F 04/06/19 06:52 Pulse Rate 65 04/06/19 06:52 Respiratory Rate 20 04/06/19 09:00 Blood Pressure 125/75 04/06/19 06:52 O2 Sat by Pulse Oximetry (%) 100 04/06/19 09:00 GENERAL: The patient is awake, alert, and fully oriented, in no acute distress. HEAD: Normal with no signs of trauma. EYES: PERRL, extraocular movements intact, sclera anicteric, conjunctiva clear. ENT: Ears normal, oropharynx clear without exudates, moist mucous membranes. NECK: Trachea midline, full range of motion, supple. LUNGS: Breath sounds equal, clear to auscultation bilaterally, no wheezes, no crackles, no accessory muscle use. HEART: Regular rate and rhythm, S1, S2 without murmur, rub or gallop. ABDOMEN: Soft, NT, ND, positive for 2 drains , one draining well. NPO continue , normoactive bowel sounds, no guarding, no rebound, no hepatosplenomegaly, no masses. EXTREMITIES: 2+ pulses, warm, well-perfused, no edema. NEUROLOGICAL: Cranial nerves II through XII grossly intact. Normal speech, gait not observed. PSYCH: Normal mood, normal affect. SKIN: Warm, dry, normal turgor, no rashes or lesions noted CBCD WBC 8.4 K/mm3 (4.0-10.0) 04/06/19 06:45 RBC 3.82 M/mm3 (3.60-5.2) 04/06/19 06:45 Hgb 11.3 GM/dL (10.7-15.3) 04/06/19 06:45 Hct 33.4 % (32.4-45.2) 04/06/19 06:45 MCV 87.4 fl (80-96) 04/06/19 06:45 MCHC 33.9 g/dl (32.0-36.0) 04/06/19 06:45 RDW 13.8 % (11.6-15.6) 04/06/19 06:45 Plt Count 567 K/MM3 (134-434) H 04/06/19 06:45 MPV 7.4 fl (7.5-11.1) L 04/06/19 06:45 CMP Sodium 141 mmol/L (136-145) 04/06/19 06:45 Potassium 3.9 mmol/L (3.5-5.1) 04/06/19 06:45 Chloride 104 mmol/L (98-107) 04/06/19 06:45 Carbon Dioxide 30 mmol/L (21-32) 04/06/19 06:45 Anion Gap 7 MMOL/L (8-16) L 04/06/19 06:45 BUN 11.3 mg/dL (7-18) 04/06/19 06:45 Creatinine 0.5 mg/dL (0.55-1.3) L 04/06/19 06:45 Random Glucose 100 mg/dL (74-106) 04/06/19 06:45 Calcium 8.8 mg/dL (8.5-10.1) 04/06/19 06:45 Total Bilirubin 0.4 mg/dL (0.2-1) 04/06/19 06:45 AST 16 U/L (15-37) 04/06/19 06:45 ALT 22 U/L (13-61) 04/06/19 06:45 Alkaline Phosphatase 62 U/L (45-117) 04/06/19 06:45 Total Protein 6.3 g/dl (6.4-8.2) L 04/06/19 06:45 Albumin 2.2 g/dl (3.4-5.0) L 04/06/19 06:45 CARDIAC ENZYMES Creatine Kinase 100 U/L (26-192) 03/26/19 21:50 Troponin I < 0.02 ng/ml (0.00-0.05) 03/26/19 21:50 Current Medications Generic Name Dose Route Start Last Admin Trade Name Freq PRN Reason Stop Dose Admin Heparin Sodium (Porcine) 5,000 unit 03/28/19 14:00 04/06/19 06:16 Heparin - SQ 5,000 unit TID [facility] Administration Meropenem 1 gm/ Dextrose 100 mls @ 200 mls/hr 04/04/19 18:00 04/06/19 09:03 IVPB 200 mls/hr Q8H-IV [facility] Administration Amino Acids 1,000 mls @ 100 mls/hr 04/05/19 12:00 04/06/19 02:55 Clinimix - IV 100 mls/hr Q12H [facility] Administration Oxycodone HCl 5 mg 04/01/19 18:08 04/02/19 17:12 Roxicodone - PO 5 mg Q6H PRN Administration PAIN LEVEL 6-10 Pantoprazole Sodium 40 mg 03/27/19 10:00 04/06/19 09:03 Protonix Iv IVPUSH 40 mg DAILY [facility] Administration Home Medications Medication Instructions Recorded Hydrochlorothiazide 25 mg PO DAILY 03/27/19 Losartan Potassium 50 mg PO DAILY 03/27/19 Microbiology 04/01/19 16:15 Abscess Gram Stain - Final 04/01/19 16:15 Abscess Body Fluid Culture - Final Escherichia Coli Esbl Autocad Designer 04/01/19 16:15 Abscess Anaerobic Culture - Final 04/01/19 16:15 Peritoneal Fluid Gram Stain - Final 04/01/19 16:15 Peritoneal Fluid Body Fluid Culture - Final NO GROWTH OF AEROBIC ORGANISMS AFTER 48 HOURS INCUBATION 04/01/19 16:15 Peritoneal Fluid Anaerobic Culture - Final NO ANAEROBES WERE ISOLATED 03/29/19 11:11 Stool Salmonella/Shigella Culture - Final NO GROWTH OF SALMONELLA OR SHIGELLA SPECIES OBTAINED 03/29/19 11:11 Stool Campylobacter Culture - Final NO GROWTH OF CAMPYLOBACTER SPECIES OBTAINED 03/29/19 11:11 Stool Yersinia Culture - Final NO GROWTH OF YERSINIA SPECIES OBTAINED 03/29/19 11:11 Stool Vibrio Culture - Final NO GROWTH OF VIBRIO SPECIES OBTAINED 03/29/19 11:11 Stool Escherichia coli 0157 Culture - Final NO GROWTH OF E COLI 0157 OBTAINED 03/29/19 13:13 Stool Clostridioides difficile Antigen - Final 03/29/19 13:13 Stool Clostridioides difficile Toxin Assay - Final 03/26/19 22:16 Urine - Urine Clean Catch Urine Culture - Final NO GROWTH OBTAINED ASSESSMENT AND PLAN: 64 y/o lady with h/o recent diverticulitis a month ago, HLD, pre-diabetes, Cholecystectomy and HTN who presented with abd pain and was found to have pneumoperitonium # Acute perforated diverticulitis s/p IR drainage of 2 abscesses , s/p reinsertion by IR drainage ; draining well s/p LLQ abcess drainage catheter placement on 04/05/2019. # Multiple Pelvic abscesses , clears for now dw with sx # Sepsis, resolved , on IV zosyn continue , discussed with ID # Elevated lactic acid: resolved # H/o pre-diabetes DVT: Heparin sq d/w patient and her daughter continue npo , clinamax Visit type - Emergency Visit Emergency Visit: Yes ED Registration Date: 03/27/19 Care time: The patient presented to the Emergency Department on the above date and was hospitalized for further evaluation of their emergent condition. - New Patient This patient is new to me today: No - Critical Care Critical Care patient: No - Discharge Referral Referred to [facility] No
--- NOTE | 2019-04-06 12:25 | PN ---
Progress Note, Physician History of Present Illness: Pt s/p drainage catheter repositioning. States she feels much better, without significant abdominal pain. - Current Medication List Current Medications: Active Medications Heparin Sodium (Porcine) (Heparin -) 5,000 unit SQ TID [facility] Last Admin: 04/06/19 06:16 Dose: 5,000 unit Meropenem 1 gm/ Dextrose 100 mls @ 200 mls/hr IVPB Q8H-IV [facility] Last Admin: 04/06/19 09:03 Dose: 200 mls/hr Amino Acids (Clinimix -) 1,000 mls @ 100 mls/hr IV Q12H [facility] Last Admin: 04/06/19 11:43 Dose: Not Given Oxycodone HCl (Roxicodone -) 5 mg PO Q6H PRN PRN Reason: PAIN LEVEL 6-10 Last Admin: 04/02/19 17:12 Dose: 5 mg Pantoprazole Sodium (Protonix Iv) 40 mg IVPUSH DAILY [facility] Last Admin: 04/06/19 09:03 Dose: 40 mg - Objective Vital Signs: Vital Signs Temperature 97.6 F 04/06/19 06:52 Pulse Rate 65 04/06/19 06:52 Respiratory Rate 20 04/06/19 09:00 Blood Pressure 125/75 04/06/19 06:52 O2 Sat by Pulse Oximetry (%) 100 04/06/19 09:00 Constitutional: Yes: No Distress, Calm Cardiovascular: Yes: Regular Rate and Rhythm Respiratory: Yes: Regular Gastrointestinal: Yes: Normal Bowel Sounds, Soft Genitourinary: Yes: WNL Extremities: Yes: WNL Edema: No Integumentary: Yes: WNL Wound/Incision: Yes: Draining (catheter) Neurological: Yes: Alert Additional Findings/Remarks: Microbiology 04/01/19 16:15 Abscess Gram Stain - Final 04/01/19 16:15 Abscess Body Fluid Culture - Final Escherichia Coli Esbl Sewing Machine Tester 04/01/19 16:15 Abscess Anaerobic Culture - Final 04/01/19 16:15 Peritoneal Fluid Gram Stain - Final 04/01/19 16:15 Peritoneal Fluid Body Fluid Culture - Final NO GROWTH OF AEROBIC ORGANISMS AFTER 48 HOURS INCUBATION 04/01/19 16:15 Peritoneal Fluid Anaerobic Culture - Final NO ANAEROBES WERE ISOLATED 03/29/19 11:11 Stool Salmonella/Shigella Culture - Final NO GROWTH OF SALMONELLA OR SHIGELLA SPECIES OBTAINED 03/29/19 11:11 Stool Campylobacter Culture - Final NO GROWTH OF CAMPYLOBACTER SPECIES OBTAINED 03/29/19 11:11 Stool Yersinia Culture - Final NO GROWTH OF YERSINIA SPECIES OBTAINED 03/29/19 11:11 Stool Vibrio Culture - Final NO GROWTH OF VIBRIO SPECIES OBTAINED 03/29/19 11:11 Stool Escherichia coli 0157 Culture - Final NO GROWTH OF E COLI 0157 OBTAINED 03/29/19 13:13 Stool Clostridioides difficile Antigen - Final 03/29/19 13:13 Stool Clostridioides difficile Toxin Assay - Final 03/26/19 22:16 Urine - Urine Clean Catch Urine Culture - Final NO GROWTH OBTAINED Laboratory Results - last 24 hr 04/05/19 04/05/19 04/06/19 17:47 21:49 06:18 WBC RBC Hgb Hct MCV MCH MCHC RDW Plt Count MPV Absolute Neuts (auto) Neutrophils % Lymphocytes % Monocytes % Eosinophils % Basophils % Nucleated RBC % Sodium Potassium Chloride Carbon Dioxide Anion Gap BUN Creatinine Est GFR (CKD-EPI)AfAm Est GFR (CKD-EPI)NonAf POC Glucometer 112 94 111 Random Glucose Calcium Total Bilirubin AST ALT Alkaline Phosphatase Total Protein Albumin 04/06/19 04/06/19 06:45 06:45 WBC 8.4 RBC 3.82 Hgb 11.3 Hct 33.4 MCV 87.4 MCH 29.6 MCHC 33.9 RDW 13.8 Plt Count 567 H MPV 7.4 L Absolute Neuts (auto) 5.8 Neutrophils % 69.2 Lymphocytes % 18.4 D Monocytes % 7.6 Eosinophils % 4.1 D Basophils % 0.7 Nucleated RBC % 0 Sodium 141 Potassium 3.9 Chloride 104 Carbon Dioxide 30 Anion Gap 7 L BUN 11.3 Creatinine 0.5 L Est GFR (CKD-EPI)AfAm 118.54 Est GFR (CKD-EPI)NonAf 102.28 POC Glucometer Random Glucose 100 Calcium 8.8 Total Bilirubin 0.4 AST 16 ALT 22 Alkaline Phosphatase 62 Total Protein 6.3 L Albumin 2.2 L Labs: CBC, BMP 04/06/19 06:45 04/06/19 06:45 INR, PTT INR 1.21 (0.83-1.09) H 03/27/19 03:22 Problem List - Problems (1) Acute diverticulitis of intestine Code(s): K57.92 - DVTRCLI OF INTEST, PART UNSP, W/O PERF OR ABSCESS W/O BLEED (2) Diabetes Code(s): E11.9 - TYPE 2 DIABETES MELLITUS WITHOUT COMPLICATIONS (3) HLD (hyperlipidemia) Code(s): E78.5 - HYPERLIPIDEMIA, UNSPECIFIED (4) HTN (hypertension) Code(s): I10 - ESSENTIAL (PRIMARY) HYPERTENSION (5) Intestinal perforation Code(s): K63.1 - PERFORATION OF INTESTINE (NONTRAUMATIC) Assessment/Plan Diverticulitis with perforation Intraabdominal abscesses s/p drainage m- ESBL + E. coli -- wbc now normal, remains afebrile -- continue current antibiotics -- surgery following
[2019-04-07] MEDS: AMINO ACIDS 4.25%/D5W 1,000 ML IV SCH ×3 (00:27→12:55)
[2019-04-07] MEDS ORDERED: MEROPENEM 1 GM VIAL (RESTRICTED TO ID) IVPB ONE ×3 (01:23→16:44)
[2019-04-07] MEDS ORDERED: DEXTROSE 5%-WATER 100 ML IVPB ONE ×3 (01:23→16:44)
[2019-04-07] MEDS: MEROPENEM 1 GM in DEXTROSE 5%-WATER 100 ML IVPB SCH ×3 (01:27→17:29)
[2019-04-07] MEDS: HEPARIN NA (PORCINE) 5,000 UNITS/ML 1ML VIAL SQ SCH ×3 (05:28→22:29)
[2019-04-07 07:02] LABS: BASO % 0.4 % (0-2.0); EOS % 5.5 % (0-4.5); HEMOGLOBIN 11.5 GM/dL (10.7-15.3); LYMPH % 20.8 % (8-40); MCH 29.2 pg (25.7-33.7); MCHC 33.7 g/dl (32.0-36.0); MEAN CELL VOLUME 86.5 fl (80-96); MEAN PLT VOLUME 7.4 fl (7.5-11.1); MONO % 8.5 % (3.8-10.2); NEUT % 64.8 % (42.8-82.8); PLATELET COUNT 643 K/MM3 (134-434); RBC 3.93 M/mm3 (3.60-5.2); RDW 14.1 % (11.6-15.6); WHITE BLOOD COUNT 8.6 K/mm3 (4.0-10.0)
[2019-04-07] MEDS: PANTOPRAZOLE SODIUM 40 MG VIAL IVPUSH SCH (09:18)
--- NOTE | 2019-04-07 12:42 | PN ---
Physical Exam: SUBJECTIVE: Patient seen and examined in the morning. No acute events overnight. Says she is feeling better, denies any abdominal pain, nausea, vomiting, fever, chills, chest pain, and shortness of breath. Pot Runner # [id number] OBJECTIVE: Vital Signs Period Temp Pulse Resp BP Sys/Arevalo Pulse Ox Last 24 Hr 97.9 F-98.2 F 70-88 18-20 114-140/73-83 94 GENERAL: The patient is awake, alert, and fully oriented, in no acute distress. LUNGS: Breath sounds equal, clear to auscultation bilaterally, no wheezes, no crackles, no accessory muscle use. HEART: Regular rate and rhythm, S1, S2 without murmur, rub or gallop. ABDOMEN: Soft, nontender, nondistended, normoactive bowel sounds. anterior drain is in place and draining serosangineous fluid. Posterior drain is in place with drain empty due to recent drainage. EXTREMITIES: 2+ pulses, warm, well-perfused, no edema in lower extremities. SKIN: Warm, dry, normal turgor, no rashes or lesions noted Laboratory Results - last 24 hr 04/06/19 04/06/19 04/07/19 18:01 22:13 05:15 WBC RBC Hgb Hct MCV MCH MCHC RDW Plt Count MPV Absolute Neuts (auto) Neutrophils % Lymphocytes % Monocytes % Eosinophils % Basophils % Nucleated RBC % POC Glucometer 125 113 98 04/07/19 05:55 WBC 8.6 RBC 3.93 Hgb 11.5 Hct 34.0 MCV 86.5 MCH 29.2 MCHC 33.7 RDW 14.1 Plt Count 643 H MPV 7.4 L Absolute Neuts (auto) 5.6 Neutrophils % 64.8 Lymphocytes % 20.8 Monocytes % 8.5 Eosinophils % 5.5 H Basophils % 0.4 Nucleated RBC % 0 POC Glucometer Active Medications Generic Name Dose Route Start Last Admin Trade Name Freq PRN Reason Stop Dose Admin Heparin Sodium (Porcine) 5,000 unit 03/28/19 14:00 04/07/19 05:28 Heparin - SQ 5,000 unit TID MARTITA Administration Meropenem 1 gm/ Dextrose 100 mls @ 200 mls/hr 04/04/19 18:00 04/07/19 09:18 IVPB 200 mls/hr Q8H-IV M[facility]ITA Administration Amino Acids 1,000 mls @ 100 mls/hr 04/05/19 12:00 04/07/19 01:28 Clinimix - IV 100 mls/hr Q12H MARTITA Administration Oxycodone HCl 5 mg 04/01/19 18:08 04/02/19 17:12 Roxicodone - PO 5 mg Q6H PRN Administration PAIN LEVEL 6-10 Pantoprazole Sodium 40 mg 03/27/19 10:00 04/07/19 09:18 Protonix Iv IVPUSH 40 mg DAILY MARTITA Administration ASSESSMENT/PLAN: 64 F PMH significant for HTN and diverticulitis who presented with microperforation of bowel. Managed non-operatively, repeat CT showed multiple abscess (2/4 drained by IR). Abscess culture shows E coli producing ESBL. 1) Bowel perforation and abdominal abscess. -Abscess was drained on 04/01 -CT scan showed anterior drain was not in place, IR repositioned. Anterior drain : 15 ML in last 24 hours. Posterior drain: 72 ml in last 24 hours. Posterior drain is still in place within abscess in cul de sac and abscess has shrunk significantly. Next CT scan 2 days. -Final report shows ESBL growing E.Coli are growing in the culture. -Day 11 of antibiotics, changed to meropenem 1gram Q8H. -Continue Protonix 40 mg IV -NPO, will advance diet to liquids on Monday. -Clinimix 100 ml/hour -Patient and patient's family considering operative intervention, also considering transfer. 2) HTN -Will Continue hold HTN home meds F: 100 ml/hr of clinimix E: Monitor CMP as needed N:Clinimix 100 ml/hr DVT: Continue Heparin 5000 unit Sub Q Dispo: Currently admitted to medicine Visit type - Emergency Visit Emergency Visit: Yes ED Registration Date: 03/27/19 Care time: The patient presented to the Emergency Department on the above date and was hospitalized for further evaluation of their emergent condition. - New Patient This patient is new to me today: No - Critical Care Critical Care patient: No ATTENDING PHYSICIAN STATEMENT I saw and evaluated the patient. I reviewed the resident's note and discussed the case with the resident. I agree with the resident's findings and plan as documented. SUBJECTIVE: OBJECTIVE: ASSESSMENT AND PLAN:
--- NOTE | 2019-04-07 14:39 | PN ---
Progress Note, Physician History of Present Illness: Pt feels well. Denies abd pain. Having BMs. Remains afebrile. - Current Medication List Current Medications: Active Medications Heparin Sodium (Porcine) (Heparin -) 5,000 unit SQ TID [facility] Last Admin: 04/07/19 05:28 Dose: 5,000 unit Meropenem 1 gm/ Dextrose 100 mls @ 200 mls/hr IVPB Q8H-IV [facility] Last Admin: 04/07/19 09:18 Dose: 200 mls/hr Amino Acids (Clinimix -) 1,000 mls @ 100 mls/hr IV Q12H [facility] Last Admin: 04/07/19 01:28 Dose: 100 mls/hr Pantoprazole Sodium (Protonix Iv) 40 mg IVPUSH DAILY [facility] Last Admin: 04/07/19 09:18 Dose: 40 mg - Objective Vital Signs: Vital Signs Temperature 98.2 F 04/07/19 11:52 Pulse Rate 88 04/07/19 11:52 Respiratory Rate 18 04/07/19 11:52 Blood Pressure 129/83 04/07/19 11:52 O2 Sat by Pulse Oximetry (%) 94 L 04/07/19 09:00 Constitutional: Yes: No Distress, Calm Cardiovascular: Yes: Regular Rate and Rhythm Respiratory: Yes: Regular Gastrointestinal: Yes: Normal Bowel Sounds, Soft Genitourinary: Yes: WNL Wound/Incision: Yes: Other (abd drain in place) Neurological: Yes: Alert Labs: CBC, BMP 04/07/19 05:55 04/06/19 06:45 INR, PTT INR 1.21 (0.83-1.09) H 03/27/19 03:22 Microbiology 04/01/19 16:15 Abscess Gram Stain - Final 04/01/19 16:15 Abscess Body Fluid Culture - Final Escherichia Coli Esbl Box Blank Machine Feeder 04/01/19 16:15 Abscess Anaerobic Culture - Final 04/01/19 16:15 Peritoneal Fluid Gram Stain - Final 04/01/19 16:15 Peritoneal Fluid Body Fluid Culture - Final NO GROWTH OF AEROBIC ORGANISMS AFTER 48 HOURS INCUBATION 04/01/19 16:15 Peritoneal Fluid Anaerobic Culture - Final NO ANAEROBES WERE ISOLATED 03/29/19 11:11 Stool Salmonella/Shigella Culture - Final NO GROWTH OF SALMONELLA OR SHIGELLA SPECIES OBTAINED 03/29/19 11:11 Stool Campylobacter Culture - Final NO GROWTH OF CAMPYLOBACTER SPECIES OBTAINED 03/29/19 11:11 Stool Yersinia Culture - Final NO GROWTH OF YERSINIA SPECIES OBTAINED 03/29/19 11:11 Stool Vibrio Culture - Final NO GROWTH OF VIBRIO SPECIES OBTAINED 03/29/19 11:11 Stool Escherichia coli 0157 Culture - Final NO GROWTH OF E COLI 0157 OBTAINED 03/29/19 13:13 Stool Clostridioides difficile Antigen - Final 03/29/19 13:13 Stool Clostridioides difficile Toxin Assay - Final 03/26/19 22:16 Urine - Urine Clean Catch Urine Culture - Final NO GROWTH OBTAINED Problem List - Problems (1) Acute diverticulitis of intestine Code(s): K57.92 - DVTRCLI OF INTEST, PART UNSP, W/O PERF OR ABSCESS W/O BLEED (2) Diabetes Code(s): E11.9 - TYPE 2 DIABETES MELLITUS WITHOUT COMPLICATIONS (3) HLD (hyperlipidemia) Code(s): E78.5 - HYPERLIPIDEMIA, UNSPECIFIED (4) HTN (hypertension) Code(s): I10 - ESSENTIAL (PRIMARY) HYPERTENSION (5) Intestinal perforation Code(s): K63.1 - PERFORATION OF INTESTINE (NONTRAUMATIC) Assessment/Plan Diverticulitis with perforation Intraabdominal abscesses s/p drainage and subsequent repositioning of drain -- ESBL + E. coli isolated -- continue current antibiotics -- leukocytosis resolved, pt afebrile -- surgery following
--- NOTE | 2019-04-07 15:15 | PN ---
Progress Note (short form) - Note Progress Note: surgery pt seen and examined. pt remains well. afebrile abd- soft, nt, nd, sumit anterior with pus, 45ml in 24 hours, no stool or air Laboratory Tests 04/07/19 05:55 WBC 8.6 Plt Count 643 H Plan- complicated diverticulitis. trial of ice cream. cont drains, cont iv abx. poss liquids Monday. cont clinimix. if unable to tolerate liquids Monday will need picc line and full tpn +/- surgery if pt agreeable. hopefully will tolerate and can go home on short course of po abx with drain.
--- NOTE | 2019-04-07 17:57 | PN ---
Teaching Attending Note Name of Resident: Pili Nolasco ATTENDING PHYSICIAN STATEMENT I saw and evaluated the patient. I reviewed the resident's note and discussed the case with the resident. I agree with the resident's findings and plan as documented. SUBJECTIVE: Patient is feeling better with no acute distress. no fever or chills. OBJECTIVE: Vital Signs Temperature 998.1 F H 04/07/19 17:02 Pulse Rate 69 04/07/19 17:02 Respiratory Rate 20 04/07/19 17:02 Blood Pressure 114/67 04/07/19 17:02 O2 Sat by Pulse Oximetry (%) 94 L 04/07/19 09:00 GENERAL: The patient is awake, alert, and fully oriented, in no acute distress. HEAD: Normal with no signs of trauma. EYES: PERRL, extraocular movements intact, sclera anicteric, conjunctiva clear. ENT: Ears normal, oropharynx clear without exudates, moist mucous membranes. NECK: Trachea midline, full range of motion, supple. LUNGS: Breath sounds equal, clear to auscultation bilaterally, no wheezes, no crackles, no accessory muscle use. HEART: Regular rate and rhythm, S1, S2 without murmur, rub or gallop. ABDOMEN: Soft, NT, ND, positive for 2 drains , one draining well. no guarding, no rebound,+ BS. sumit anterior with pus, 45ml in 24 hours, EXTREMITIES: 2+ pulses, warm, well-perfused, no edema. NEUROLOGICAL: Cranial nerves II through XII grossly intact. Normal speech, gait not observed. PSYCH: Normal mood, normal affect. SKIN: Warm, dry, normal turgor, no rashes or lesions noted CBCD WBC 8.6 K/mm3 (4.0-10.0) 04/07/19 05:55 RBC 3.93 M/mm3 (3.60-5.2) 04/07/19 05:55 Hgb 11.5 GM/dL (10.7-15.3) 04/07/19 05:55 Hct 34.0 % (32.4-45.2) 04/07/19 05:55 MCV 86.5 fl (80-96) 04/07/19 05:55 MCHC 33.7 g/dl (32.0-36.0) 04/07/19 05:55 RDW 14.1 % (11.6-15.6) 04/07/19 05:55 Plt Count 643 K/MM3 (134-434) H 04/07/19 05:55 MPV 7.4 fl (7.5-11.1) L 04/07/19 05:55 CMP Sodium 141 mmol/L (136-145) 04/06/19 06:45 Potassium 3.9 mmol/L (3.5-5.1) 04/06/19 06:45 Chloride 104 mmol/L (98-107) 04/06/19 06:45 Carbon Dioxide 30 mmol/L (21-32) 04/06/19 06:45 Anion Gap 7 MMOL/L (8-16) L 04/06/19 06:45 BUN 11.3 mg/dL (7-18) 04/06/19 06:45 Creatinine 0.5 mg/dL (0.55-1.3) L 04/06/19 06:45 Random Glucose 100 mg/dL (74-106) 04/06/19 06:45 Calcium 8.8 mg/dL (8.5-10.1) 04/06/19 06:45 Total Bilirubin 0.4 mg/dL (0.2-1) 04/06/19 06:45 AST 16 U/L (15-37) 04/06/19 06:45 ALT 22 U/L (13-61) 04/06/19 06:45 Alkaline Phosphatase 62 U/L (45-117) 04/06/19 06:45 Total Protein 6.3 g/dl (6.4-8.2) L 04/06/19 06:45 Albumin 2.2 g/dl (3.4-5.0) L 04/06/19 06:45 CARDIAC ENZYMES Creatine Kinase 100 U/L (26-192) 03/26/19 21:50 Troponin I < 0.02 ng/ml (0.00-0.05) 03/26/19 21:50 Current Medications Generic Name Dose Route Start Last Admin Trade Name Freq PRN Reason Stop Dose Admin Heparin Sodium (Porcine) 5,000 unit 03/28/19 14:00 04/07/19 14:28 Heparin - SQ 5,000 unit TID MARTITA Administration Meropenem 1 gm/ Dextrose 100 mls @ 200 mls/hr 04/04/19 18:00 04/07/19 17:29 IVPB 200 mls/hr Q8H-IV M[facility] Administration Amino Acids 1,000 mls @ 100 mls/hr 04/05/19 12:00 04/07/19 12:55 Clinimix - IV 100 mls/hr Q12H M[facility] Administration Pantoprazole Sodium 40 mg 03/27/19 10:00 04/07/19 09:18 Protonix Iv IVPUSH 40 mg DAILY MARTITA Administration Home Medications Medication Instructions Recorded Hydrochlorothiazide 25 mg PO DAILY 03/27/19 Losartan Potassium 50 mg PO DAILY 03/27/19 Microbiology 04/01/19 16:15 Abscess Gram Stain - Final 04/01/19 16:15 Abscess Body Fluid Culture - Final Escherichia Coli Esbl Custom Bookbinder 04/01/19 16:15 Abscess Anaerobic Culture - Final 04/01/19 16:15 Peritoneal Fluid Gram Stain - Final 04/01/19 16:15 Peritoneal Fluid Body Fluid Culture - Final NO GROWTH OF AEROBIC ORGANISMS AFTER 48 HOURS INCUBATION 04/01/19 16:15 Peritoneal Fluid Anaerobic Culture - Final NO ANAEROBES WERE ISOLATED 03/29/19 11:11 Stool Salmonella/Shigella Culture - Final NO GROWTH OF SALMONELLA OR SHIGELLA SPECIES OBTAINED 03/29/19 11:11 Stool Campylobacter Culture - Final NO GROWTH OF CAMPYLOBACTER SPECIES OBTAINED 03/29/19 11:11 Stool Yersinia Culture - Final NO GROWTH OF YERSINIA SPECIES OBTAINED 03/29/19 11:11 Stool Vibrio Culture - Final NO GROWTH OF VIBRIO SPECIES OBTAINED 03/29/19 11:11 Stool Escherichia coli 0157 Culture - Final NO GROWTH OF E COLI 0157 OBTAINED 03/29/19 13:13 Stool Clostridioides difficile Antigen - Final 03/29/19 13:13 Stool Clostridioides difficile Toxin Assay - Final 03/26/19 22:16 Urine - Urine Clean Catch Urine Culture - Final NO GROWTH OBTAINED CT of abdomen: persistent pneumoperitoneum, less air as compared to prior imaging. Hepatic steatosis. multiple fluid collections within the pelvis with evidence of acute diverticulitis. ASSESSMENT AND PLAN: Patient is a 64yo female with h/o recent diverticulitis a month ago, HLD, pre- diabetes, Cholecystectomy and HTN who presented with abd pain and was found to have pneumoperitonium with multiple fluid collections and abscesses. # Complicated perforated diverticulitis continue NPO, s/p repositioning of IR catheter , IV meropenem 1gram daily. ID on the case. pt and son do not wish to proceed with surgery/colostomy and want to continue medical management. As per surgeon , patient has a small fistula forming. continue clinimix at 100/hour which should give 1.1 gm protein per kg and about 420 kcal. poss liquid trial on Monday. cont clinimix. if unable to tolerate liquids Monday will need picc line and full tpn +/- surgery if pt agreeable. hopefully will tolerate and can go home on short course of po abx with drain. will discuss with ID # Multiple Pelvic abscesses , NPO for now, on IV meropenem # Elevated lactic acid: resolved # H/o pre-diabetes DVT: Heparin sq
[2019-04-08] MEDS: MEROPENEM 1 GM in DEXTROSE 5%-WATER 100 ML IVPB SCH ×3 (02:12→17:38)
[2019-04-08] MEDS ORDERED: DEXTROSE 5%-WATER 100 ML IVPB ONE ×3 (02:58→17:32)
[2019-04-08] MEDS ORDERED: MEROPENEM 1 GM VIAL (RESTRICTED TO ID) IVPB ONE ×3 (02:58→17:32)
[2019-04-08] MEDS: AMINO ACIDS 4.25%/D5W 1,000 ML IV SCH ×3 (03:12→14:00)
[2019-04-08] MEDS: HEPARIN NA (PORCINE) 5,000 UNITS/ML 1ML VIAL SQ SCH ×3 (06:24→21:19)
[2019-04-08 06:54] LABS: BASO % 0.8 % (0-2.0); EOS % 8.4 % (0-4.5); HEMATOCRIT 35.2 % (32.4-45.2); HEMOGLOBIN 11.9 GM/dL (10.7-15.3); LYMPH % 25.8 % (8-40); MCH 29.3 pg (25.7-33.7); MCHC 33.7 g/dl (32.0-36.0); MEAN CELL VOLUME 86.9 fl (80-96); MEAN PLT VOLUME 7.4 fl (7.5-11.1); MONO % 8.5 % (3.8-10.2); NEUT % 56.5 % (42.8-82.8); PLATELET COUNT 748 K/MM3 (134-434); RBC 4.05 M/mm3 (3.60-5.2); RDW 13.6 % (11.6-15.6); WHITE BLOOD COUNT 6.2 K/mm3 (4.0-10.0)
[2019-04-08 07:21] LABS: ALBUMIN 2.5 g/dl (3.4-5.0); BILIRUBIN,TOTAL 0.3 mg/dL (0.2-1); BLOOD UREA NITROGEN 20.8 mg/dL (7-18); CALCIUM 9.2 mg/dL (8.5-10.1); CREATININE 0.5 mg/dL (0.55-1.3); POTASSIUM 3.9 mmol/L (3.5-5.1); TOT PROT 6.9 g/dl (6.4-8.2)
[2019-04-08] MEDS: PANTOPRAZOLE SODIUM 40 MG VIAL IVPUSH SCH (09:17)
--- NOTE | 2019-04-08 11:41 | PN ---
Progress Note, Physician History of Present Illness: says feels better no new issues - Current Medication List Current Medications: Active Medications Heparin Sodium (Porcine) (Heparin -) 5,000 unit SQ TID [facility] Last Admin: 04/08/19 06:24 Dose: 5,000 unit Meropenem 1 gm/ Dextrose 100 mls @ 200 mls/hr IVPB Q8H-IV [facility] Last Admin: 04/08/19 09:17 Dose: 200 mls/hr Amino Acids (Clinimix -) 1,000 mls @ 100 mls/hr IV Q12H [facility] Last Admin: 04/08/19 03:12 Dose: 100 mls/hr Pantoprazole Sodium (Protonix Iv) 40 mg IVPUSH DAILY [facility] Last Admin: 04/08/19 09:17 Dose: 40 mg - Objective Vital Signs: Vital Signs Temperature 98.9 F 04/08/19 06:33 Pulse Rate 97 H 04/08/19 06:33 Respiratory Rate 20 04/08/19 06:33 Blood Pressure 126/86 04/08/19 06:33 O2 Sat by Pulse Oximetry (%) 94 L 04/07/19 21:00 Constitutional: Yes: No Distress, Calm Cardiovascular: Yes: S1, S2 Respiratory: Yes: Regular, CTA Bilaterally Musculoskeletal: Yes: WNL Extremities: Yes: WNL Neurological: Yes: Alert, Oriented Psychiatric: Yes: Alert, Oriented Labs: CBC, BMP 04/08/19 06:00 04/08/19 06:00 INR, PTT INR 1.21 (0.83-1.09) H 03/27/19 03:22 Assessment/Plan 64 y/o urdu speaking female with PMhx of HTN here for worsening lower abdominal pain. Diverticulitis with bowel perforation abd pain lactic acidosis leukocytosis abd abscess plan continue abx as per surgery
--- NOTE | 2019-04-08 13:58 | PN ---
Progress Note (short form) - Note Progress Note: surgery pt seen and examined. tolerating clear liquids. flatus and bm. no pain afebrile abd- soft, nt, nd, sumit anterior with pus 35 ml, no stool or air, posterior drain serous Plan- complicated diverticulitis. trial of ice cream and low fiber full liquids. cont drains, cont iv abx. cont clinimix. if unable to tolerate liquids will need picc line and full tpn +/- surgery if pt agreeable. hopefully will tolerate and can go home on short course of po abx with drain. posterior drain can likely be removed before discharge. Possible discharge on po abx and one drain.
--- NOTE | 2019-04-08 15:47 | PN ---
Teaching Attending Note Name of Resident: Pili Nolasco ATTENDING PHYSICIAN STATEMENT I saw and evaluated the patient. I reviewed the resident's note and discussed the case with the resident. I agree with the resident's findings and plan as documented. SUBJECTIVE: Patient is feeling better , no further abdominal pain , will start full liquid diet. Son is at bedside. OBJECTIVE: Vital Signs Temperature 97.9 F 04/08/19 14:00 Pulse Rate 82 04/08/19 14:00 Respiratory Rate 20 04/08/19 14:00 Blood Pressure 116/65 04/08/19 14:00 O2 Sat by Pulse Oximetry (%) 98 04/08/19 09:00 GENERAL: The patient is awake, alert, and fully oriented, in no acute distress. HEAD: Normal with no signs of trauma. EYES: PERRL, extraocular movements intact, sclera anicteric, conjunctiva clear. ENT: Ears normal, oropharynx clear without exudates, moist mucous membranes. NECK: Trachea midline, full range of motion, supple. LUNGS: Breath sounds equal, clear to auscultation bilaterally, no wheezes, no crackles, no accessory muscle use. HEART: Regular rate and rhythm, S1, S2 without murmur, rub or gallop. ABDOMEN: Soft, NT, ND, positive for 2 drains anterior and posterior , one draining well. no guarding, no rebound,+ BS. sumit anterior with pus, 45ml in 24 hours, EXTREMITIES: 2+ pulses, warm, well-perfused, no edema. NEUROLOGICAL: Cranial nerves II through XII grossly intact. Normal speech, gait not observed. PSYCH: Normal mood, normal affect. SKIN: Warm, dry, normal turgor, no rashes or lesions noted CBCD WBC 6.2 K/mm3 (4.0-10.0) 04/08/19 06:00 RBC 4.05 M/mm3 (3.60-5.2) 04/08/19 06:00 Hgb 11.9 GM/dL (10.7-15.3) 04/08/19 06:00 Hct 35.2 % (32.4-45.2) 04/08/19 06:00 MCV 86.9 fl (80-96) 04/08/19 06:00 MCHC 33.7 g/dl (32.0-36.0) 04/08/19 06:00 RDW 13.6 % (11.6-15.6) 04/08/19 06:00 Plt Count 748 K/MM3 (134-434) H 04/08/19 06:00 MPV 7.4 fl (7.5-11.1) L 04/08/19 06:00 CMP Sodium 140 mmol/L (136-145) 04/08/19 06:00 Potassium 3.9 mmol/L (3.5-5.1) 04/08/19 06:00 Chloride 106 mmol/L (98-107) 04/08/19 06:00 Carbon Dioxide 27 mmol/L (21-32) 04/08/19 06:00 Anion Gap 7 MMOL/L (8-16) L 04/08/19 06:00 BUN 20.8 mg/dL (7-18) H 04/08/19 06:00 Creatinine 0.5 mg/dL (0.55-1.3) L 04/08/19 06:00 Random Glucose 105 mg/dL (74-106) 04/08/19 06:00 Calcium 9.2 mg/dL (8.5-10.1) 04/08/19 06:00 Total Bilirubin 0.3 mg/dL (0.2-1) 04/08/19 06:00 AST 17 U/L (15-37) 04/08/19 06:00 ALT 21 U/L (13-61) 04/08/19 06:00 Alkaline Phosphatase 57 U/L (45-117) 04/08/19 06:00 Total Protein 6.9 g/dl (6.4-8.2) 04/08/19 06:00 Albumin 2.5 g/dl (3.4-5.0) L 04/08/19 06:00 CARDIAC ENZYMES Creatine Kinase 100 U/L (26-192) 03/26/19 21:50 Troponin I < 0.02 ng/ml (0.00-0.05) 03/26/19 21:50 CT of abdomen: persistent pneumoperitoneum, less air as compared to prior imaging. Hepatic steatosis. multiple fluid collections within the pelvis with evidence of acute diverticulitis. Repeat CT 04/04/2019 : s/p successful drainage of cul de sac fluid collection since 04/01/2019. Displacement of left anterior pelvic drainage catheter whivh is no longer within an air fluid collection. ASSESSMENT AND PLAN: Patient is a 64yo female with h/o recent diverticulitis a month ago, HLD, pre- diabetes, Cholecystectomy and HTN who presented with abd pain and was found to have pneumoperitonium with multiple fluid collections and abscesses. # Complicated perforated diverticulitis continue NPO, s/p repositioning of IR catheter , IV meropenem 1gram daily continue , ID on the case. pt and son do not wish to proceed with surgery/colostomy and want to continue medical management at this time. discussed in details with the son , that patient has no further pain and the drainage is draining well, and if she tolerates the diet , can be discharged home on oral Augmentin as per ID's recommendations. Will start the full liquid diet today, will monitor, if she fully tolerates the diet, by , to discontinue Clinimax IV, discharge patient home with one of the drainage As per surgeon , patient has a small fistula forming. Nutrition consult for specific diet. if unable to tolerate liquids will need picc line and full tpn +/- surgery if pt agreeable. hopefully will tolerate and can go home on short course of po abx with drain. # Multiple Pelvic abscesses on IV meropenem # Elevated lactic acid: resolved # H/o pre-diabetes DVT: Heparin sq
--- NOTE | 2019-04-08 17:27 | PN ---
Physical Exam: SUBJECTIVE: Patient seen and examined in the morning. No acute events overnight. Has no complaints including no chest pain, no shortness of breath, no abdominal pain, no fever, no chills. OBJECTIVE: Vital Signs Period Temp Pulse Resp BP Sys/Arevalo Pulse Ox Last 24 Hr 97.4 F-98.9 F 63-101 20-20 116-126/64-88 94-98 GENERAL: The patient is awake, alert, and fully oriented, in no acute distress. LUNGS: Breath sounds equal, clear to auscultation bilaterally, no wheezes, no crackles. HEART: Regular rate and rhythm, S1, S2 without murmur, rub or gallop. ABDOMEN: Soft, nontender, nondistended, normoactive bowel sounds, no guarding. Drains in place, serosanguinous fluid present in anterior drain. Posterior drain is empty. Yellow discoloration on the right lower abdomen noted. EXTREMITIES: 2+ pulses, warm, well-perfused, no edema. Laboratory Results - last 24 hr 04/08/19 04/08/19 06:00 06:00 WBC 6.2 RBC 4.05 Hgb 11.9 Hct 35.2 MCV 86.9 MCH 29.3 MCHC 33.7 RDW 13.6 Plt Count 748 H MPV 7.4 L Absolute Neuts (auto) 3.5 Neutrophils % 56.5 Lymphocytes % 25.8 D Monocytes % 8.5 Eosinophils % 8.4 H Basophils % 0.8 Nucleated RBC % 0 Sodium 140 Potassium 3.9 Chloride 106 Carbon Dioxide 27 Anion Gap 7 L BUN 20.8 H Creatinine 0.5 L Est GFR (CKD-EPI)AfAm 118.54 Est GFR (CKD-EPI)NonAf 102.28 Random Glucose 105 Calcium 9.2 Total Bilirubin 0.3 AST 17 ALT 21 Alkaline Phosphatase 57 Total Protein 6.9 Albumin 2.5 L Active Medications Generic Name Dose Route Start Last Admin Trade Name Freq PRN Reason Stop Dose Admin Heparin Sodium (Porcine) 5,000 unit 03/28/19 14:00 04/08/19 14:45 Heparin - SQ 5,000 unit TID [facility] Administration Meropenem 1 gm/ Dextrose 100 mls @ 200 mls/hr 04/04/19 18:00 04/08/19 09:17 IVPB 200 mls/hr Q8H-IV [facility] Administration Amino Acids 1,000 mls @ 100 mls/hr 04/05/19 12:00 04/08/19 12:15 Clinimix - IV Not Given Q12H [facility] Pantoprazole Sodium 40 mg 03/27/19 10:00 04/08/19 09:17 Protonix Iv IVPUSH 40 mg DAILY [facility] Administration ASSESSMENT/PLAN: 64 F PMH significant for HTN and diverticulitis who presented with microperforation of bowel. Managed non-operatively, repeat CT showed multiple abscess (2/4 drained by IR). Abscess culture shows E coli producing ESBL. 1) Bowel perforation and abdominal abscess. -Abscess was drained on 04/01 -CT scan showed anterior drain was not in place, IR repositioned. Anterior drain : 15 ML in last 24 hours. Posterior drain: 72 ml in last 24 hours. Posterior drain is still in place within abscess in cul de sac and abscess has shrunk significantly. Next CT scan in 1 day. -Final report shows ESBL growing E.Coli are growing in the culture. -Day 12 of antibiotics, continue meropenem 1gram Q8H. -Will be discharged on Augmentin for 2 weeks PO, when appropriate for discharge. -Continue Protonix 40 mg IV -Tolerating clear liquids diet, pending trial of ice cream and low fiber full liquids can advance diet. -Clinimix 100 ml/hour -Gen surgery is consulted and appreciate recommendations. If unable to advance diet, possible need for PICC line to receive TPN as outpatient. 2) HTN -Will Continue hold HTN home meds F: 100 ml/hr of clinimix E: Monitor CMP as needed N:Clinimix 100 ml/hr DVT: Continue Heparin 5000 unit Sub Q Dispo: Currently admitted to medicine Visit type - Emergency Visit Emergency Visit: Yes ED Registration Date: 03/27/19 Care time: The patient presented to the Emergency Department on the above date and was hospitalized for further evaluation of their emergent condition. - New Patient This patient is new to me today: No - Critical Care Critical Care patient: No ATTENDING PHYSICIAN STATEMENT I saw and evaluated the patient. I reviewed the resident's note and discussed the case with the resident. I agree with the resident's findings and plan as documented. SUBJECTIVE: OBJECTIVE: ASSESSMENT AND PLAN:
[2019-04-09] MEDS ORDERED: DEXTROSE 5%-WATER 100 ML IVPB ONE ×3 (00:28→17:12)
[2019-04-09] MEDS ORDERED: MEROPENEM 1 GM VIAL (RESTRICTED TO ID) IVPB ONE ×3 (00:28→17:12)
[2019-04-09] MEDS: AMINO ACIDS 4.25%/D5W 1,000 ML IV SCH ×2 (00:38→14:57)
[2019-04-09] MEDS: MEROPENEM 1 GM in DEXTROSE 5%-WATER 100 ML IVPB SCH ×3 (01:38→17:16)
[2019-04-09] MEDS: HEPARIN NA (PORCINE) 5,000 UNITS/ML 1ML VIAL SQ SCH ×3 (06:09→21:12)
[2019-04-09 08:12] LABS: EOS % 6.2 % (0-4.5); HEMATOCRIT 34.6 % (32.4-45.2); HEMOGLOBIN 11.7 GM/dL (10.7-15.3); LYMPH % 24.7 % (8-40); MCH 29.1 pg (25.7-33.7); MCHC 33.7 g/dl (32.0-36.0); MEAN CELL VOLUME 86.1 fl (80-96); MEAN PLT VOLUME 7.3 fl (7.5-11.1); MONO % 8.3 % (3.8-10.2); NEUT % 59.8 % (42.8-82.8); PLATELET COUNT 773 K/MM3 (134-434); RBC 4.01 M/mm3 (3.60-5.2); RDW 13.9 % (11.6-15.6); WHITE BLOOD COUNT 6.6 K/mm3 (4.0-10.0)
[2019-04-09 08:46] LABS: ALBUMIN 2.6 g/dl (3.4-5.0); BILIRUBIN,TOTAL 0.2 mg/dL (0.2-1); BLOOD UREA NITROGEN 21.2 mg/dL (7-18); CALCIUM 9.4 mg/dL (8.5-10.1); CREATININE 0.5 mg/dL (0.55-1.3); POTASSIUM 4.3 mmol/L (3.5-5.1); TOT PROT 7.1 g/dl (6.4-8.2)
[2019-04-09] MEDS: PANTOPRAZOLE SODIUM 40 MG VIAL IVPUSH SCH (10:01)
--- NOTE | 2019-04-09 11:34 | PN ---
Progress Note, Physician History of Present Illness: stable rt cubital fossa redness minimal drain from the drains going for u/s - Current Medication List Current Medications: Active Medications Heparin Sodium (Porcine) (Heparin -) 5,000 unit SQ TID [facility] Last Admin: 04/09/19 06:09 Dose: 5,000 unit Meropenem 1 gm/ Dextrose 100 mls @ 200 mls/hr IVPB Q8H-IV [facility] Last Admin: 04/09/19 10:01 Dose: 200 mls/hr Amino Acids (Clinimix -) 1,000 mls @ 100 mls/hr IV Q12H [facility] Last Admin: 04/09/19 00:38 Dose: 100 mls/hr Pantoprazole Sodium (Protonix Iv) 40 mg IVPUSH DAILY [facility] Last Admin: 04/09/19 10:01 Dose: 40 mg - Objective Vital Signs: Vital Signs Temperature 98.3 F 04/09/19 06:48 Pulse Rate 67 04/09/19 06:48 Respiratory Rate 20 04/09/19 09:00 Blood Pressure 108/68 04/09/19 06:48 O2 Sat by Pulse Oximetry (%) 96 04/09/19 09:00 Constitutional: Yes: No Distress, Calm Cardiovascular: Yes: S1, S2 Respiratory: Yes: Regular, CTA Bilaterally Gastrointestinal: Yes: Soft, Hypoactive Bowel Sounds, Other (drain in place) Musculoskeletal: Yes: WNL Extremities: Yes: WNL Neurological: Yes: Alert, Oriented Psychiatric: Yes: Alert, Oriented Labs: CBC, BMP 04/09/19 07:35 04/09/19 07:35 INR, PTT INR 1.21 (0.83-1.09) H 03/27/19 03:22 Assessment/Plan 64 y/o dutch speaking female with PMhx of HTN here for worsening lower abdominal pain. Diverticulitis with bowel perforation abd pain lactic acidosis leukocytosis abd abscess plan continue abx as per surgery await for u/s of the hand
--- NOTE | 2019-04-09 13:17 | PN ---
Physical Exam: SUBJECTIVE: Patient seen and examined in the morning. No acute events overnight. No complaints of chest pain, abdominal pain, shortness of breath, nausea, vomiting, fever or chills. OBJECTIVE: Vital Signs Period Temp Pulse Resp BP Sys/Arevalo Pulse Ox Last 24 Hr 97.4 F-98.3 F 67-101 20-20 108-124/65-88 96-98 GENERAL: The patient is awake, alert, and fully oriented, in no acute distress. HEAD: Normal with no signs of trauma. NECK: Trachea midline, full range of motion, supple. LUNGS: Breath sounds equal, clear to auscultation bilaterally, no wheezes, no crackles HEART: Regular rate and rhythm, S1, S2 without murmur, rub or gallop. ABDOMEN: Soft, nontender, nondistended, normoactive bowel sounds, no guarding, no rebound. Small yellow discoloration on the lower right abdomen. EXTREMITIES: 2+ pulses, warm, well-perfused, no edema. Erythema in below the right antecubital fossa. Laboratory Results - last 24 hr 04/08/19 04/09/19 04/09/19 20:43 05:45 07:35 WBC 6.6 RBC 4.01 Hgb 11.7 Hct 34.6 MCV 86.1 MCH 29.1 MCHC 33.7 RDW 13.9 Plt Count 773 H MPV 7.3 L Absolute Neuts (auto) 3.9 Neutrophils % 59.8 Lymphocytes % 24.7 Monocytes % 8.3 Eosinophils % 6.2 H Basophils % 1.0 Nucleated RBC % 0 Sodium Potassium Chloride Carbon Dioxide Anion Gap BUN Creatinine Est GFR (CKD-EPI)AfAm Est GFR (CKD-EPI)NonAf POC Glucometer 101 102 Random Glucose Calcium Total Bilirubin AST ALT Alkaline Phosphatase Total Protein Albumin 04/09/19 07:35 WBC RBC Hgb Hct MCV MCH MCHC RDW Plt Count MPV Absolute Neuts (auto) Neutrophils % Lymphocytes % Monocytes % Eosinophils % Basophils % Nucleated RBC % Sodium 139 Potassium 4.3 Chloride 106 Carbon Dioxide 27 Anion Gap 6 L BUN 21.2 H Creatinine 0.5 L Est GFR (CKD-EPI)AfAm 118.54 Est GFR (CKD-EPI)NonAf 102.28 POC Glucometer Random Glucose 104 Calcium 9.4 Total Bilirubin 0.2 AST 18 ALT 22 Alkaline Phosphatase 59 Total Protein 7.1 Albumin 2.6 L Active Medications Generic Name Dose Route Start Last Admin Trade Name Freq PRN Reason Stop Dose Admin Heparin Sodium (Porcine) 5,000 unit 03/28/19 14:00 04/09/19 06:09 Heparin - SQ 5,000 unit TID [facility] Administration Meropenem 1 gm/ Dextrose 100 mls @ 200 mls/hr 04/04/19 18:00 04/09/19 10:01 IVPB 200 mls/hr Q8H-IV [facility] Administration Amino Acids 1,000 mls @ 100 mls/hr 04/05/19 12:00 04/09/19 00:38 Clinimix - IV 100 mls/hr Q12H [facility] Administration Pantoprazole Sodium 40 mg 03/27/19 10:00 04/09/19 10:01 Protonix Iv IVPUSH 40 mg DAILY [facility] Administration ASSESSMENT/PLAN: 64 F PMH significant for HTN and diverticulitis who presented with microperforation of bowel. Managed non-operatively, repeat CT showed multiple abscess (2/4 drained by IR). Abscess culture shows E coli producing ESBL. 1) Bowel perforation and abdominal abscess. -Abscess was drained on 04/01 -CT scan showed anterior drain was not in place, IR repositioned. Anterior drain : 15 ML in last 24 hours. Posterior drain: 72 ml in last 24 hours. Posterior drain is still in place within abscess in cul de sac and abscess has shrunk significantly. Next CT scan tomorrow. -Final report shows ESBL growing E.Coli are growing in the culture. -Day 12 of antibiotics, continue meropenem 1gram Q8H. -Will be discharged on Augmentin for 2 weeks PO, when appropriate for discharge. -Continue Protonix 40 mg IV -Tolerating trial of ice cream and low fiber full liquids. Low fiber diet as per surgery in AM. -Clinimix 100 ml/hour -Gen surgery is consulted and appreciate recommendations. If unable to advance diet, possible need for PICC line to receive TPN as outpatient. -IR will remove posterior drain 2) HTN -Will Continue hold HTN home meds 3) Possible Phlebitis -new developing erythema -F/U U/S doppler of the Right upper extremity -Elevate, Rest, and applying Cold compresses F: 100 ml/hr of clinimix E: Monitor CMP as needed N:Full liquid diet as tolerated. DVT: Continue Heparin 5000 unit Sub Q Dispo: Currently admitted to medicine Visit type - Emergency Visit Emergency Visit: Yes ED Registration Date: 03/27/19 Care time: The patient presented to the Emergency Department on the above date and was hospitalized for further evaluation of their emergent condition. - New Patient This patient is new to me today: No - Critical Care Critical Care patient: No ATTENDING PHYSICIAN STATEMENT I saw and evaluated the patient. I reviewed the resident's note and discussed the case with the resident. I agree with the resident's findings and plan as documented. SUBJECTIVE: OBJECTIVE: ASSESSMENT AND PLAN:
--- NOTE | 2019-04-09 15:00 | PN ---
Teaching Attending Note Name of Resident: Pili Nolasco ATTENDING PHYSICIAN STATEMENT I saw and evaluated the patient. I reviewed the resident's note and discussed the case with the resident. I agree with the resident's findings and plan as documented. Patient is feeling well with no acute distress SUBJECTIVE: Vital Signs Temperature 98.3 F 04/09/19 06:48 Pulse Rate 67 04/09/19 06:48 Respiratory Rate 20 04/09/19 09:00 Blood Pressure 108/68 04/09/19 06:48 O2 Sat by Pulse Oximetry (%) 96 04/09/19 09:00 GENERAL: The patient is awake, alert, and fully oriented, in no acute distress. HEAD: Normal with no signs of trauma. EYES: PERRL, extraocular movements intact, sclera anicteric, conjunctiva clear. ENT: Ears normal, oropharynx clear without exudates, moist mucous membranes. NECK: Trachea midline, full range of motion, supple. LUNGS: Breath sounds equal, clear to auscultation bilaterally, no wheezes, no crackles, no accessory muscle use. HEART: Regular rate and rhythm, S1, S2 without murmur, rub or gallop. ABDOMEN: Soft, NT, ND, positive for 2 drains , one draining well. no guarding, no rebound,+ BS. sumit anterior with pus, 45ml in 24 hours, EXTREMITIES: 2+ pulses, warm, well-perfused, no edema. NEUROLOGICAL: Cranial nerves II through XII grossly intact. Normal speech, gait not observed. PSYCH: Normal mood, normal affect. SKIN: Warm, dry, normal turgor, no rashes or lesions noted CBCD WBC 6.6 K/mm3 (4.0-10.0) 04/09/19 07:35 RBC 4.01 M/mm3 (3.60-5.2) 04/09/19 07:35 Hgb 11.7 GM/dL (10.7-15.3) 04/09/19 07:35 Hct 34.6 % (32.4-45.2) 04/09/19 07:35 MCV 86.1 fl (80-96) 04/09/19 07:35 MCHC 33.7 g/dl (32.0-36.0) 04/09/19 07:35 RDW 13.9 % (11.6-15.6) 04/09/19 07:35 Plt Count 773 K/MM3 (134-434) H 04/09/19 07:35 MPV 7.3 fl (7.5-11.1) L 04/09/19 07:35 CMP Sodium 139 mmol/L (136-145) 04/09/19 07:35 Potassium 4.3 mmol/L (3.5-5.1) 04/09/19 07:35 Chloride 106 mmol/L (98-107) 04/09/19 07:35 Carbon Dioxide 27 mmol/L (21-32) 04/09/19 07:35 Anion Gap 6 MMOL/L (8-16) L 04/09/19 07:35 BUN 21.2 mg/dL (7-18) H 04/09/19 07:35 Creatinine 0.5 mg/dL (0.55-1.3) L 04/09/19 07:35 Random Glucose 104 mg/dL (74-106) 04/09/19 07:35 Calcium 9.4 mg/dL (8.5-10.1) 04/09/19 07:35 Total Bilirubin 0.2 mg/dL (0.2-1) 04/09/19 07:35 AST 18 U/L (15-37) 04/09/19 07:35 ALT 22 U/L (13-61) 04/09/19 07:35 Alkaline Phosphatase 59 U/L (45-117) 04/09/19 07:35 Total Protein 7.1 g/dl (6.4-8.2) 04/09/19 07:35 Albumin 2.6 g/dl (3.4-5.0) L 04/09/19 07:35 CARDIAC ENZYMES Creatine Kinase 100 U/L (26-192) 03/26/19 21:50 Troponin I < 0.02 ng/ml (0.00-0.05) 03/26/19 21:50 Current Medications Generic Name Dose Route Start Last Admin Trade Name Freq PRN Reason Stop Dose Admin Heparin Sodium (Porcine) 5,000 unit 03/28/19 14:00 04/09/19 14:57 Heparin - SQ 5,000 unit TID [facility] Administration Meropenem 1 gm/ Dextrose 100 mls @ 200 mls/hr 04/04/19 18:00 04/09/19 10:01 IVPB 200 mls/hr Q8H-IV [facility] Administration Amino Acids 1,000 mls @ 100 mls/hr 04/05/19 12:00 04/09/19 14:57 Clinimix - IV 100 mls/hr Q12H [facility] Administration Pantoprazole Sodium 40 mg 03/27/19 10:00 04/09/19 10:01 Protonix Iv IVPUSH 40 mg DAILY [facility] Administration Home Medications Medication Instructions Recorded Hydrochlorothiazide 25 mg PO DAILY 03/27/19 Losartan Potassium 50 mg PO DAILY 03/27/19 CT of abdomen: persistent pneumoperitoneum, less air as compared to prior imaging. Hepatic steatosis. multiple fluid collections within the pelvis with evidence of acute diverticulitis. CT of abdomen: persistent pneumoperitoneum, less air as compared to prior imaging. Hepatic steatosis. multiple fluid collections within the pelvis with evidence of acute diverticulitis. Repeat CT 04/04/2019 : s/p successful drainage of cul de sac fluid collection since 04/01/2019. Displacement of left anterior pelvic drainage catheter whivh is no longer within an air fluid collection. ASSESSMENT AND PLAN: Patient is a 64yo female with h/o recent diverticulitis a month ago, HLD, pre- diabetes, Cholecystectomy and HTN who presented with abd pain and was found to have pneumoperitonium with multiple fluid collections and abscesses. # Complicated perforated diverticulitis patient tolerated full liquid diet , s/ p repositioning of IR catheter , IV meropenem 1gram daily continue , ID on the case. pt and son do not wish to proceed with surgery/colostomy and want to continue medical management at this time. discussed in details with the son , that patient has no further pain and the drainage is draining well, and if she tolerates the diet , can be discharged home on oral Augmentin as per ID's recommendations. Will continue the full liquid diet , will monitor, if she fully tolerates the diet. By , to discontinue Clinimax IV, discharge patient home with one of the drainage . Nutrition consult for specific diet. if unable to tolerate liquids will need picc line and full tpn +/- surgery if pt agreeable. hopefully will tolerate and can go home on short course of po abx with drain. # Multiple Pelvic abscesses on IV meropenem # Elevated lactic acid: resolved # H/o pre-diabetes DVT: Heparin sq repeAT ct Of abdomen and pelvis with oral and IV contrast. report the result of CT abdomen to . check with and ID on a daily basis for discharge instructions and follow up. nutrition consult. As per son , he will make an appointment with a surgery in [facility] for follow up.
--- NOTE | 2019-04-09 15:29 | PN ---
Progress Note (short form) - Note Progress Note: Pt states that she had some diarrhea yesterday and one episode today. She tolerated an increase in her diet, no increase in abdominal pain. Vital Signs Period Temp Pulse Resp BP Sys/Arevalo Pulse Ox Last 24 Hr 97.4 F-98.3 F 67-101 20-20 108-124/68-88 96-98 Drain Posterior: 10 serosagrenous lower abd: 0 cloudy GEN: A&0x3, NAD Abd: soft, non-distended, nontender CBC, BMP 04/09/19 07:35 04/09/19 07:35 A/p: 64 yo female with complicated diverticulitis Case d/w Dr. Mayfield. Pt remains afebrile with no leukocytosis. Recommendations from ID regarding IV abx versus transition to oral antibiotics Possible removal of 1 drain prior to discharge, D/w medicine and plan for repeat CT scan to evaluate collections(on previous exam 04/04 cul-d-sac collection resolved) Diet advanced to low fiber for the am
[2019-04-10] MEDS ORDERED: MEROPENEM 1 GM VIAL (RESTRICTED TO ID) IVPB ONE ×3 (01:05→16:33)
[2019-04-10] MEDS ORDERED: DEXTROSE 5%-WATER 100 ML IVPB ONE ×3 (01:06→16:34)
[2019-04-10] MEDS: AMINO ACIDS 4.25%/D5W 1,000 ML IV SCH ×2 (01:11→13:41)
[2019-04-10] MEDS: MEROPENEM 1 GM in DEXTROSE 5%-WATER 100 ML IVPB SCH ×3 (01:11→18:00)
[2019-04-10] MEDS: HEPARIN NA (PORCINE) 5,000 UNITS/ML 1ML VIAL SQ SCH ×3 (06:16→21:10)
--- NOTE | 2019-04-10 09:31 | PN ---
Progress Note (short form) - Note Progress Note: surgery pt tolerated full liquids. will advance to low fiber. if tolerates should top clinimix. would rescan tomorrow and possibly remove pelvic drain but would leave anterior drain for several weeks. poss d/c tomorrow on po abx if id allows. eventual sigmoid colectomy, hopefully one stage, if medical management successful
[2019-04-10] MEDS: PANTOPRAZOLE SODIUM 40 MG VIAL IVPUSH SCH (10:46)
--- NOTE | 2019-04-10 11:20 | PN ---
Progress Note, Physician History of Present Illness: stable no new issues - Current Medication List Current Medications: Active Medications Heparin Sodium (Porcine) (Heparin -) 5,000 unit SQ TID [facility] Last Admin: 04/10/19 06:16 Dose: 5,000 unit Meropenem 1 gm/ Dextrose 100 mls @ 200 mls/hr IVPB Q8H-IV [facility] Last Admin: 04/10/19 01:11 Dose: 200 mls/hr Amino Acids (Clinimix -) 1,000 mls @ 100 mls/hr IV Q12H [facility] Last Admin: 04/10/19 01:11 Dose: 100 mls/hr Pantoprazole Sodium (Protonix Iv) 40 mg IVPUSH DAILY [facility] Last Admin: 04/09/19 10:01 Dose: 40 mg - Objective Vital Signs: Vital Signs Temperature 97.7 F 04/10/19 06:28 Pulse Rate 68 04/10/19 06:28 Respiratory Rate 20 04/10/19 06:28 Blood Pressure 106/66 04/10/19 06:28 O2 Sat by Pulse Oximetry (%) 96 04/09/19 20:06 Constitutional: Yes: No Distress, Calm Cardiovascular: Yes: S1, S2 Respiratory: Yes: Regular, CTA Bilaterally Gastrointestinal: Yes: Normal Bowel Sounds, Soft Musculoskeletal: Yes: WNL Extremities: Yes: WNL Neurological: Yes: Alert, Oriented Psychiatric: Yes: Alert, Oriented Labs: CBC, BMP 04/09/19 07:35 04/09/19 07:35 INR, PTT INR 1.21 (0.83-1.09) H 03/27/19 03:22 Assessment/Plan 64 y/o lao speaking female with PMhx of HTN here for worsening lower abdominal pain. Diverticulitis with bowel perforation abd pain lactic acidosis leukocytosis abd abscess plan continue abx as per surgery will ahve to complete the course plan to advance the diet
--- NOTE | 2019-04-10 18:32 | PN ---
Teaching Attending Note Name of Resident: Vicky Ortiz ATTENDING PHYSICIAN STATEMENT I saw and evaluated the patient. I reviewed the resident's note and discussed the case with the resident. I agree with the resident's findings and plan as documented. SUBJECTIVE: No pain , had 2 BMs today, soft and small. No fever . tolerated soft diet OBJECTIVE: NAD CV: RRR Lungs: CTAB Abd: soft, NT, ND, NL BS. one drain in L side. Ext: No edema A/P : 64 y/o lady with h/o recent diverticulitis a month ago, HLD, pre-diabetes, Cholecystectomy and HTN who presented with abd pain and was found to have pneumoperitonium. 1- Acute perforated diverticulitis 2- Pelvic abscesses 3- Sepsis, resolved 4- Elevated lactic acid: resolved 5- H/o pre-diabetes Plan: - sx improved , CT of abdomen reviewed. resolution of 2 abscesses and decrease in size of the big one. - posterior drain was removed today - cont meropenem for now. - d/w Dr. Morales, will need a total of 14 days of carbapenems. will dc on Ertapenem. - will d/w Surgical team about timing of next scan as out pt to evaluate remaining abscess. - will place PICC tomorrow for possible dc - will dc clinamix in am as she is tolerating diet - SQ heparin Possible dc tomorrow with PICC line to complete a course of Abx . she was offered home infusion vs NH vs infusion center. will speak to son as per patient wishes .
--- NOTE | 2019-04-10 18:34 | PN ---
Physical Exam: SUBJECTIVE: Patient seen and examined in the morning. No acute events overnight. No chest pain, shortness of breath, no abdominal pain, no diarrhea, no nausea, no fever or chills. OBJECTIVE: Vital Signs Period Temp Pulse Resp BP Sys/Arevalo Pulse Ox Last 24 Hr 97.7 F-98.5 F 68-82 20-20 106-121/63-82 96-96 GENERAL: The patient is awake, alert, and fully oriented, in no acute distress. HEAD: Normal with no signs of trauma. EYES: PERRL, extraocular movements intact, sclera anicteric, conjunctiva clear. No ptosis. LUNGS: Breath sounds equal, clear to auscultation bilaterally, no wheezes, no crackles. HEART: Regular rate and rhythm, S1, S2 without murmur, rub or gallop. ABDOMEN: Soft, nontender, nondistended, normoactive bowel sounds. EXTREMITIES: 2+ pulses, warm, well-perfused, no edema. Laboratory Results - last 24 hr 04/09/19 04/10/19 04/10/19 20:30 05:56 16:39 POC Glucometer 107 103 110 Active Medications Generic Name Dose Route Start Last Admin Trade Name Freq PRN Reason Stop Dose Admin Heparin Sodium (Porcine) 5,000 unit 03/28/19 14:00 04/10/19 13:41 Heparin - SQ 5,000 unit TID [facility] Administration Meropenem 1 gm/ Dextrose 100 mls @ 200 mls/hr 04/04/19 18:00 04/10/19 18:00 IVPB 200 mls/hr Q8H-IV [facility] Administration Amino Acids 1,000 mls @ 100 mls/hr 04/05/19 12:00 04/10/19 13:41 Clinimix - IV 100 mls/hr Q12H [facility] Administration Pantoprazole Sodium 40 mg 03/27/19 10:00 04/10/19 10:46 Protonix Iv IVPUSH 40 mg DAILY [facility] Administration ASSESSMENT/PLAN: 64 F PMH significant for HTN and diverticulitis who presented with microperforation of bowel. Managed non-operatively, repeat CT showed multiple abscess (2/4 drained by IR). Abscess culture shows E coli producing ESBL. 1) Bowel perforation and abdominal abscess. -Abscess was drained on 04/01 -CT scan showed posterior drain was removed, abscess improvement. -F/U abscessogram. -Final report shows ESBL growing E.Coli are growing in the culture. -Day 14 of antibiotics, continue meropenem 1gram Q8H. -Will be discharged on Ertrapenem for 2 weeks IV when appropriate for discharge. -For PICC line insertion tomorrow. -Continue Protonix 40 mg IV -Low fiber diet as per surgery in AM. -Clinimix discontinued -Gen surgery is consulted and appreciate recommendations. 2) HTN -Will Continue hold HTN home meds 3) Possible Phlebitis -new developing erythema -DVT ruled out. -Elevate, Rest, and applying Cold compresses F: no fluids. E: Monitor CMP as needed N:low fiber DVT: Continue Heparin 5000 unit Sub Q Dispo: Currently admitted to medicine Visit type - Emergency Visit Emergency Visit: Yes ED Registration Date: 03/27/19 Care time: The patient presented to the Emergency Department on the above date and was hospitalized for further evaluation of their emergent condition. - New Patient This patient is new to me today: No - Critical Care Critical Care patient: No - Discharge Referral Referred to [facility] Med P.C.: No ATTENDING PHYSICIAN STATEMENT I saw and evaluated the patient. I reviewed the resident's note and discussed the case with the resident. I agree with the resident's findings and plan as documented. SUBJECTIVE: OBJECTIVE: ASSESSMENT AND PLAN:
[2019-04-11] MEDS: AMINO ACIDS 4.25%/D5W 1,000 ML IV SCH (01:14)
[2019-04-11] MEDS ORDERED: MEROPENEM 1 GM VIAL (RESTRICTED TO ID) IVPB ONE ×2 (01:39→08:55)
[2019-04-11] MEDS ORDERED: DEXTROSE 5%-WATER 100 ML IVPB ONE ×2 (01:40→08:55)
[2019-04-11] MEDS: MEROPENEM 1 GM in DEXTROSE 5%-WATER 100 ML IVPB SCH ×2 (02:14→09:40)
[2019-04-11] MEDS: HEPARIN NA (PORCINE) 5,000 UNITS/ML 1ML VIAL SQ SCH ×3 (06:56→21:09)
--- NOTE | 2019-04-11 08:10 | PN ---
Progress Note (short form) - Note Progress Note: surgery ct much improved. pelvic drain removed. tolerating low fiber diet. Plan- cont anterior drain minimum of 3 weeks. stop clinimix. surgically stable for d/c on abx per id. eventual partial colectomy hopefully one stage. will follow in 3-4 weeks [phone]
[2019-04-11 09:19] LABS: BASO % 1.1 % (0-2.0); EOS % 4.1 % (0-4.5); HEMATOCRIT 37.6 % (32.4-45.2); HEMOGLOBIN 12.5 GM/dL (10.7-15.3); LYMPH % 23.9 % (8-40); MCH 28.9 pg (25.7-33.7); MCHC 33.3 g/dl (32.0-36.0); MEAN CELL VOLUME 86.6 fl (80-96); MEAN PLT VOLUME 7.6 fl (7.5-11.1); MONO % 7.9 % (3.8-10.2); PLATELET COUNT 866 K/MM3 (134-434); RBC 4.35 M/mm3 (3.60-5.2); RDW 14.1 % (11.6-15.6); WHITE BLOOD COUNT 7.3 K/mm3 (4.0-10.0)
[2019-04-11] MEDS: PANTOPRAZOLE SODIUM 40 MG VIAL IVPUSH SCH (09:40)
--- NOTE | 2019-04-11 09:47 | PN ---
Progress Note, Physician History of Present Illness: patient stable pelvic drain removed ant drain remaining - Current Medication List Current Medications: Active Medications Heparin Sodium (Porcine) (Heparin -) 5,000 unit SQ TID [facility] Last Admin: 04/11/19 06:56 Dose: 5,000 unit Meropenem 1 gm/ Dextrose 100 mls @ 200 mls/hr IVPB Q8H-IV [facility] Last Admin: 04/11/19 09:40 Dose: 200 mls/hr Pantoprazole Sodium (Protonix Iv) 40 mg IVPUSH DAILY [facility] Last Admin: 04/11/19 09:40 Dose: 40 mg - Objective Vital Signs: Vital Signs Temperature 98.4 F 04/11/19 06:41 Pulse Rate 72 04/11/19 06:41 Respiratory Rate 20 04/11/19 06:41 Blood Pressure 107/63 04/11/19 06:41 O2 Sat by Pulse Oximetry (%) 96 04/10/19 09:00 Constitutional: Yes: No Distress, Calm Cardiovascular: Yes: S1, S2 Respiratory: Yes: Regular, CTA Bilaterally Gastrointestinal: Yes: Normal Bowel Sounds, Soft, Other (drain in place) Musculoskeletal: Yes: WNL Extremities: Yes: WNL Neurological: Yes: Alert, Oriented Psychiatric: Yes: Alert, Oriented Labs: INR, PTT INR 1.21 (0.83-1.09) H 03/27/19 03:22 Assessment/Plan 64 y/o cambodian speaking female with PMhx of HTN here for worsening lower abdominal pain. Diverticulitis with bowel perforation abd pain lactic acidosis leukocytosis abd abscess plan continue abx as per surgery complete the course monitor drainage
[2019-04-11 11:28] LABS: ALBUMIN 3.1 g/dl (3.4-5.0); BILIRUBIN,TOTAL 0.3 mg/dL (0.2-1); BLOOD UREA NITROGEN 22.2 mg/dL (7-18); CALCIUM 9.8 mg/dL (8.5-10.1); CREATININE 0.5 mg/dL (0.55-1.3); POTASSIUM 4.5 mmol/L (3.5-5.1); TOT PROT 7.9 g/dl (6.4-8.2)
--- NOTE | 2019-04-11 13:34 | PN ---
Teaching Attending Note Name of Resident: Vicky Ortiz ATTENDING PHYSICIAN STATEMENT I saw and evaluated the patient. I reviewed the resident's note and discussed the case with the resident. I agree with the resident's findings and plan as documented. SUBJECTIVE: No fever or chills. No abd pain, no diarrhea, she tolerated her food. OBJECTIVE: NAD CV: RRR Lungs: CTAB Abd: soft, NT, ND, NL BS. one drain in L side. Ext: No edema A/P : 64 y/o lady with h/o recent diverticulitis a month ago, HLD, pre-diabetes, Cholecystectomy and HTN who presented with abd pain and was found to have pneumoperitonium. 1- Acute perforated diverticulitis 2- Pelvic abscesses 3- Sepsis, resolved 4- Elevated lactic acid: resolved 5- H/o pre-diabetes Plan: - case d/w ID. and surgical team. - plan for IV ertapenam , 1 g daily x 6 more days , then 1 week of Augmentin . f /u with Dr. Mayfield in 3 weeks to determine timing of the next CT and removal of STEPHANY drain - regular diet for now - instructed patient of alarming sx ( fever, diarrhea, nausea/vomiting, severe pain, bloating, ...) - PICC in place - will prescribe tomorrow's dose of Abx, then Dr. Morales will sign full order - plan was d/w her and her daughter in room.
[2019-04-11] MEDS ORDERED: ERTAPENEM SODIUM 1 GM in SODIUM CHLORIDE 50 ML IVPB ONE (17:00)
[2019-04-11] MEDS ORDERED: PT OWN MED DRAWER 7, Y5N ONE (17:17)
--- NOTE | 2019-04-11 19:33 | PN ---
Physical Exam: SUBJECTIVE: Patient seen and examined in the morning. No acute events overnight. No chest pain, shortness of breath, no abdominal pain, no diarrhea, no nausea, no fever or chills. OBJECTIVE: Vital Signs Period Temp Pulse Resp BP Sys/Arevalo Pulse Ox Last 24 Hr 98.2 F-98.4 F 72-94 18-20 107-128/63-73 98 GENERAL: The patient is awake, alert, and fully oriented, in no acute distress. HEAD: Normal with no signs of trauma. EYES: PERRL, extraocular movements intact, sclera anicteric, conjunctiva clear. No ptosis. LUNGS: Breath sounds equal, clear to auscultation bilaterally, no wheezes, no crackles. HEART: Regular rate and rhythm, S1, S2 without murmur, rub or gallop. ABDOMEN: Soft, nontender, nondistended, normoactive bowel sounds. EXTREMITIES: 2+ pulses, warm, well-perfused, no edema. Laboratory Results - last 24 hr 04/10/19 04/11/19 04/11/19 21:11 07:50 07:50 WBC 7.3 RBC 4.35 Hgb 12.5 Hct 37.6 MCV 86.6 MCH 28.9 MCHC 33.3 RDW 14.1 Plt Count 866 H MPV 7.6 Absolute Neuts (auto) 4.6 Neutrophils % 63.0 Lymphocytes % 23.9 Monocytes % 7.9 Eosinophils % 4.1 Basophils % 1.1 Nucleated RBC % 0 Sodium 138 Potassium 4.5 Chloride 103 Carbon Dioxide 25 Anion Gap 10 BUN 22.2 H Creatinine 0.5 L Est GFR (CKD-EPI)AfAm 118.54 Est GFR (CKD-EPI)NonAf 102.28 POC Glucometer 114 Random Glucose 109 H Calcium 9.8 Total Bilirubin 0.3 AST 15 ALT 24 Alkaline Phosphatase 78 Total Protein 7.9 Albumin 3.1 L Active Medications Generic Name Dose Route Start Last Admin Trade Name Freq PRN Reason Stop Dose Admin Heparin Sodium (Porcine) 5,000 unit 03/28/19 14:00 04/11/19 14:15 Heparin - SQ 5,000 unit TID [facility] Administration Ertapenem 1 gm/ Sodium 50 mls @ 100 mls/hr 04/12/19 13:00 Chloride IVPB 04/12/19 13:29 ONCE ONE Pantoprazole Sodium 40 mg 03/27/19 10:00 04/11/19 09:40 Protonix Iv IVPUSH 40 mg DAILY [facility] Administration ASSESSMENT/PLAN: 64 F PMH significant for HTN and diverticulitis who presented with microperforation of bowel. Managed non-operatively, repeat CT showed multiple abscess (2/4 drained by IR). Abscess culture shows E coli producing ESBL. 1) Bowel perforation and abdominal abscess. -PICC line inserted. -Abscess was drained on 04/01 -CT scan showed posterior drain was removed, abscess improvement. -F/U abscessogram. -Final report shows ESBL growing E.Coli are growing in the culture. -Day 14 of antibiotics, continue ertapenem started today at 5pm -Will be discharged on Ertrapenem for 1 weeks IV and then augmentin 850 for 2 weeks when appropriate for discharge. -Continue Protonix 40 mg IV -Low fiber diet as per surgery in AM. -Clinimix discontinued -Gen surgery is consulted and appreciate recommendations. 2) HTN -Will Continue hold HTN home meds F: no fluids. E: Monitor CMP as needed N:low fiber DVT: Continue Heparin 5000 unit Sub Q Dispo: For discharge tomorrow. Visit type - Emergency Visit Emergency Visit: Yes ED Registration Date: 03/27/19 Care time: The patient presented to the Emergency Department on the above date and was hospitalized for further evaluation of their emergent condition. - New Patient This patient is new to me today: No - Critical Care Critical Care patient: No ATTENDING PHYSICIAN STATEMENT I saw and evaluated the patient. I reviewed the resident's note and discussed the case with the resident. I agree with the resident's findings and plan as documented. SUBJECTIVE: OBJECTIVE: ASSESSMENT AND PLAN:
[2019-04-12] MEDS: HEPARIN NA (PORCINE) 5,000 UNITS/ML 1ML VIAL SQ SCH (05:28)
--- NOTE | 2019-04-12 10:13 | PN ---
Progress Note, Physician History of Present Illness: stable doing well no complaints drain in place - Current Medication List Current Medications: Active Medications Heparin Sodium (Porcine) (Heparin -) 5,000 unit SQ TID [facility] Last Admin: 04/12/19 05:28 Dose: 5,000 unit Ertapenem 1 gm/ Sodium (Chloride) 50 mls @ 100 mls/hr IVPB ONCE ONE Stop: 04/12/19 13:29 Pantoprazole Sodium (Protonix Iv) 40 mg IVPUSH DAILY [facility] Last Admin: 04/11/19 09:40 Dose: 40 mg - Objective Vital Signs: Vital Signs Temperature 98.7 F 04/12/19 05:20 Pulse Rate 78 04/12/19 05:20 Respiratory Rate 20 04/12/19 05:20 Blood Pressure 125/77 04/12/19 05:20 O2 Sat by Pulse Oximetry (%) 98 04/11/19 09:00 Constitutional: Yes: No Distress, Calm Respiratory: Yes: Regular, CTA Bilaterally Gastrointestinal: Yes: Normal Bowel Sounds, Soft Musculoskeletal: Yes: WNL Extremities: Yes: WNL Neurological: Yes: Alert, Oriented Psychiatric: Yes: Alert, Oriented Labs: CBC, BMP 04/11/19 07:50 04/11/19 07:50 INR, PTT INR 1.21 (0.83-1.09) H 03/27/19 03:22 Assessment/Plan 64 y/o mongolian speaking female with PMhx of HTN here for worsening lower abdominal pain. Diverticulitis with bowel perforation abd pain lactic acidosis leukocytosis abd abscess plan continue abx as per surgery complete the course monitor drainage
[2019-04-12 11:58] VITALS: BP 126/91; PULSE 88; TEMP 98.2
[2019-04-12] MEDS ORDERED: ERTAPENEM SODIUM 1 GM in SODIUM CHLORIDE 50 ML IVPB ONE (13:00)
[2019-04-12] MEDS: PANTOPRAZOLE SODIUM 40 MG VIAL IVPUSH SCH (13:03)
--- NOTE | 2019-04-12 15:05 | PN ---
Teaching Attending Note Name of Resident: Vicky Ortiz ATTENDING PHYSICIAN STATEMENT I saw and evaluated the patient. I reviewed the resident's note and discussed the case with the resident. I agree with the resident's findings and plan as documented. SUBJECTIVE: No abd pain, no fever or chills OBJECTIVE: NAD CV: RRR Lungs: CTAB anteriorly Abd: soft, NT, ND, NL BS. One drain in L side with 2-3 cc. Ext: No edema A/P: 64 y/o lady with h/o recent diverticulitis a month ago, HLD, pre-diabetes, Cholecystectomy and HTN who presented with abd pain and was found to have pneumoperitonium. 1- Acute perforated diverticulitis 2- Pelvic abscesses 3- Sepsis, resolved 4- Elevated lactic acid: resolved 5- H/o pre-diabetes Plan: - cont ertapenem to complete a total of 14 days of IV abx then 1 week of augmentin -f/u with Dr. Mayfield in 3 weeks to determine timing of the next CT and removal of STEPHNAY drain - regular diet dispo: dc home . to come back to infusion center fro Abx
--- NOTE | 2019-04-12 18:11 | DS ---
Physical Exam: SUBJECTIVE: Patient seen and examined in the morning. No acute events overnight. Has no complaints of chest pain, shortness of breath, abdominal pain , dysuria, nausea, vomiting, or diarrhea. OBJECTIVE: Vital Signs Period Temp Pulse Resp BP Sys/Arevalo Pulse Ox Last 24 Hr 98.1 F-98.7 F 78-88 18-20 125-133/77-91 98 PHYSICAL EXAM GENERAL: The patient is awake, alert, and fully oriented, in no acute distress. HEAD: Normal with no signs of trauma. EYES: PERRL, extraocular movements intact, sclera anicteric, conjunctiva clear. ENT: Ears normal, nares patent, oropharynx clear without exudates, moist mucous membranes. NECK: Trachea midline, full range of motion, supple. LUNGS: Breath sounds equal, clear to auscultation bilaterally, no wheezes. HEART: Regular rate and rhythm, S1, S2 without murmur, rub or gallop. ABDOMEN: Soft, nontender, nondistended, normoactive bowel sounds, no guarding, no rebound. Anterior drain in place, no erythema surrounding dressing. EXTREMITIES: 2+ pulses, warm, well-perfused, no edema. NEUROLOGICAL: Cranial nerves II through XII grossly intact. . PSYCH: Normal mood, normal affect. SKIN: Warm, dry, normal turgor, no rashes or lesions noted. LABS CBC, BMP 04/11/19 07:50 04/11/19 07:50 Microbiology 04/01/19 16:15 Abscess Gram Stain - Final 04/01/19 16:15 Abscess Body Fluid Culture - Final Escherichia Coli [employer] Specialist 04/01/19 16:15 Abscess Anaerobic Culture - Final 04/01/19 16:15 Peritoneal Fluid Gram Stain - Final 04/01/19 16:15 Peritoneal Fluid Body Fluid Culture - Final NO GROWTH OF AEROBIC ORGANISMS AFTER 48 HOURS INCUBATION 04/01/19 16:15 Peritoneal Fluid Anaerobic Culture - Final NO ANAEROBES WERE ISOLATED 03/29/19 11:11 Stool Salmonella/Shigella Culture - Final NO GROWTH OF SALMONELLA OR SHIGELLA SPECIES OBTAINED 03/29/19 11:11 Stool Campylobacter Culture - Final NO GROWTH OF CAMPYLOBACTER SPECIES OBTAINED 03/29/19 11:11 Stool Yersinia Culture - Final NO GROWTH OF YERSINIA SPECIES OBTAINED 03/29/19 11:11 Stool Vibrio Culture - Final NO GROWTH OF VIBRIO SPECIES OBTAINED 03/29/19 11:11 Stool Escherichia coli 0157 Culture - Final NO GROWTH OF E COLI 0157 OBTAINED 03/29/19 13:13 Stool Clostridioides difficile Antigen - Final 03/29/19 13:13 Stool Clostridioides difficile Toxin Assay - Final 03/26/19 22:16 Urine - Urine Clean Catch Urine Culture - Final NO GROWTH OBTAINED HOSPITAL COURSE: Date of Admission:03/27/19 Date of Discharge: 04/12/19 64 F with PMH of diverticulosis and HTN who presented to the ED with pneumoperitoneum secondary to microperforations in her sigmoid colon as seen on CT Abdomen. General surgery was consulted but patient refused surgical intervention and instead wanted medical managment. Patient received IV zoysn for the first 9 days of hospital admission. Repeat CT scan of abdomen showed multiple abscesses in the abdomen and pelvis and patient did not want operative management. Decision was made to have Interventional Radiology drain the abscesses. Drains inserted in 2/4 of the abscesses, however the anterior drain was dislodged on the next CT abdomen that was done, and was later corrected. Final CT abdomen showed improvement of the abscess in which posterior drain was placed, so posterior drain removed. Patient had abscess fluid cultured which showed ESBL producing E.Coli, patient's medication was switched to Meropenem. Patient was ruled stable for discharge on day 16 of admission, and had PICC line placed in the right arm. Patient will continue wit Ertapenem until 04/20, and then switch to Augmentin 850 mg PO for 2 weeks. Patient will follow up with in 3 weeks in clinic for further management of drain and abscesses. Imaging done this stay: CT Abdomen 03/27: 1. Pneumoperitoneum most likely related to acute sigmoid diverticulitis. 2. Mild hepatosplenomegaly. 2. Trace Ascites CT Abdomen 04/01: Persisten pneumoperitoneum, less air as compared to prior imaging. Multiple fluid collections within the pelvis with evidence of acute diverticulitis. Hepatic steatosis. CT Abdomen 04/04: S/P succesful drainage of cul-de-sac fluid collection since . There is only small amount of residual fluid in the collection. Displacement of left anterior pelvic drainage catheter which is no longer within an air and fluid collection. CT abdomen 04/10: NO evidence of pneumoperitoneum, free intraperitoneal fluid or bowel obstruction. Minutes to complete discharge: 35 Discharge Summary Problems reviewed: Yes Reason For Visit: DIVERTICULITIS, PNEUMOPERITONEUM Condition: Improved - Instructions Diet, Activity, Other Instructions: You were admitted to the hospital because of perforations (small holes) in your intestines. You were treated with antibiotics and bowel rest. We reevaluated your abdomen and saw that you had abscesses present, so we inserted tubes to drain them out. We repeated the scan this week, and saw one has drained sufficiently so we removed the tube. The second abscess is still present and draining into the tube. That drain will stay in place for about 3-4 more weeks. When you meet with the surgeon for your appointment he will discuss when to remove the tube. You will be going home with the drain in place. Please take care to not have it move too much, and that is not pulled. We inserted an IV line (PICC line) that you can go home with, you will continue antibiotics using that line. Please care for the PICC line as described below. While you were here we started you on new medications that you will continue: Ertapenem 1 gram daily through the IV from 04/12/19 to 04/20/19, to treat your infection Augmentin 875 mg twice a day, by mouth from 04/21/19 to 04/28/19 to treat your infection Lactobacillus 1 tablet once a day by mouth to prevent diarrhea. Please follow up with your primary care physician within 1 week. Please follow up with Dr. Mayfield in 3 weeks. Please follow up with Dr. Morales in 1 week Return to the ED if you have chest pain, shortness of breath, abdominal pain, diarrhea, vomiting, or any issues with the drain. Care for the PICC line is as follows: -Use good hand hygiene; wash your hands before use, dont touch the PICC line or dressing unless you need to, -Keep the PICC dry; dont take baths or go swimming, take a sponge bath to avoid the PICC line from getting wet -Avoid damage; dont use sharp or pointy objects around the catheter, try not to let clothing pull on the catheter -Avoid lowering your chest below your waist regarding the drain site in your abdomen, keep it dry. if it gets wet under it, or it peels, apply occlusive dressing to it . make sure it does not get pulled back Referrals: Tanmay Morales MD [Staff Physician] - 1 Week Javier Mayfield MD [Staff Physician] - 1 Week Disposition: HOME - Home Medications Comprehensive Discharge Medication List: Ambulatory Orders Amox-Tr/K Cl [Augmentin - 875Mg Tablet] 1 tab PO BID #14 tablet 04/11/19 Lactobacillus Acidophilus [Bacid -] 1 each PO DAILY #30 capsule 04/11/19 This patient is new to me today: No Emergency Visit: Yes ED Registration Date: 03/27/19 Care time: The patient presented to the Emergency Department on the above date and was hospitalized for further evaluation of their emergent condition. Critical Care patient: No - Discharge Referral Referred to [facility] Med P.C.: No ATTENDING PHYSICIAN STATEMENT I saw and evaluated the patient. I reviewed the resident's note and discussed the case with the resident. I agree with the resident's findings and plan as documented. SUBJECTIVE: OBJECTIVE: ASSESSMENT AND PLAN:
== END 2019-04-12 14:12 | disposition home or self-care (01) | DRG 871 ==
LOC: JER 17:15 → JERBED 03-27 02:01 → J8W 03-27 08:39
PROVIDERS: ADMIT Internal Medicine; ATTEND Internal Medicine
PROC: 0W9G30Z Drainage of Peritoneal Cavity with Drainage Device, Percutaneous Approach (ICD-10-PCS; principal; 2019-04-01)
PROC: 0WPGX0Z Removal of Drainage Device from Peritoneal Cavity, External Approach (ICD-10-PCS; 2019-04-10)
PROC: 02HV33Z Insertion of Infusion Device into Superior Vena Cava, Percutaneous Approach (ICD-10-PCS; 2019-04-11)
PROC: B518ZZA Fluoroscopy of Superior Vena Cava, Guidance (ICD-10-PCS; 2019-04-11)
DX: A41.89 Other specified sepsis (principal); K65.1 Peritoneal abscess; K57.20 Diverticulitis of large intestine with perforation and abscess without bleeding; E87.2 Acidosis; I10 Essential (primary) hypertension; E11.9 Type 2 diabetes mellitus without complications; E78.00 Pure hypercholesterolemia, unspecified; E66.9 Obesity, unspecified; Z68.32 Body mass index [BMI] 32.0-32.9, adult; N20.0 Calculus of kidney; D72.829 Elevated white blood cell count, unspecified; I80.8 Phlebitis and thrombophlebitis of other sites; B96.20 Unspecified Escherichia coli [E. coli] as the cause of diseases classified elsewhere; R50.9 Fever, unspecified
CPT/HCPCS: 36415; 36569; 49406; 49407; 49424; 71045-TC-FY; 74019-TC-FY; 74177-TC; 76080-TC-FY; 76098-TC-FY; 76380-TC; 77001-TC-FY; 80048; 80053; 81003; 82150; 82550; 82962; 83036; 83605; 83690; 83735; 84100; 84132; 84484; 85025; 85027; 85610; 85730; 86850; 86900; 86901; 87045; 87046; 87070; 87075; 87086; 87186; 87205; 87324; 87449; 87899; 93005; 93010; 93971; 99285-25; C1729; C1751; C1769; J0131; J1644; J7030; Q9967

== ENCOUNTER 2019-04-13 07:45 | Day surgery (SDC) | payer OTHER ==
[2019-04-13] MEDS ORDERED: ERTAPENEM SODIUM 1 GM in SODIUM CHLORIDE 50 ML IVPB ONE (09:00)
[2019-04-13 09:11] VITALS: BP 116/85; PULSE 92; TEMP 97.7
== END 2019-04-13 09:12 | disposition home or self-care (01) ==
LOC: JINFUSION 07:45 → J7W 07:46 → JINFUSION 09:12
PROVIDERS: ATTEND Internal Medicine Infectious Disease
DX: A41.89 Other specified sepsis (principal); B96.20 Unspecified Escherichia coli [E. coli] as the cause of diseases classified elsewhere; K57.20 Diverticulitis of large intestine with perforation and abscess without bleeding; I10 Essential (primary) hypertension
CPT/HCPCS: 96365

== ENCOUNTER 2019-04-14 09:52 | Day surgery (SDC) | payer OTHER ==
[2019-04-14] MEDS ORDERED: ERTAPENEM SODIUM 1 GM in SODIUM CHLORIDE 50 ML IVPB ONE (10:15)
[2019-04-14 11:02] VITALS: BP 125/90; PULSE 96; TEMP 97.7
== END 2019-04-14 11:47 | disposition home or self-care (01) ==
LOC: JINFUSION 09:52 → J7W 09:53 → JINFUSION 11:30
PROVIDERS: ATTEND Internal Medicine Infectious Disease
DX: A41.89 Other specified sepsis (principal); B96.20 Unspecified Escherichia coli [E. coli] as the cause of diseases classified elsewhere; K57.20 Diverticulitis of large intestine with perforation and abscess without bleeding; E11.9 Type 2 diabetes mellitus without complications
CPT/HCPCS: 96365

== ENCOUNTER 2019-04-15 09:28 | Day surgery (SDC) | payer OTHER ==
[~2019-04-15 09:28] MED LIST: ERTAPENEM SODIUM 1 GM in SODIUM CHLORIDE 50 ML IVPB ONE
[2019-04-15 14:36] VITALS: TEMP 98.8
[2019-04-15 14:40] VITALS: BP 120/84; PULSE 97
== END 2019-04-15 10:50 | disposition home or self-care (01) ==
LOC: JINFUSION 09:28
PROVIDERS: ATTEND Internal Medicine Infectious Disease
DX: A41.89 Other specified sepsis (principal); B96.20 Unspecified Escherichia coli [E. coli] as the cause of diseases classified elsewhere; K57.20 Diverticulitis of large intestine with perforation and abscess without bleeding; E11.9 Type 2 diabetes mellitus without complications; I10 Essential (primary) hypertension
CPT/HCPCS: 96365

== ENCOUNTER 2019-04-16 09:18 | Day surgery (SDC) | payer OTHER ==
[2019-04-16 12:11] VITALS: TEMP 98.5
[2019-04-16 12:13] VITALS: BP 118/74; PULSE 92
== END 2019-04-16 10:30 | disposition home or self-care (01) ==
LOC: JINFUSION 09:18
PROVIDERS: ATTEND Internal Medicine Infectious Disease
DX: A41.89 Other specified sepsis (principal); B96.20 Unspecified Escherichia coli [E. coli] as the cause of diseases classified elsewhere; K57.20 Diverticulitis of large intestine with perforation and abscess without bleeding; E11.9 Type 2 diabetes mellitus without complications; I10 Essential (primary) hypertension
CPT/HCPCS: 96365

== ENCOUNTER 2019-04-17 09:25 | Day surgery (SDC) | payer OTHER ==
[2019-04-17 15:21] VITALS: BP 122/74; PULSE 87; TEMP 98.1
== END 2019-04-17 11:00 | disposition home or self-care (01) ==
LOC: JINFUSION 09:25
PROVIDERS: ATTEND Internal Medicine Infectious Disease
DX: A41.89 Other specified sepsis (principal); B96.20 Unspecified Escherichia coli [E. coli] as the cause of diseases classified elsewhere; K57.20 Diverticulitis of large intestine with perforation and abscess without bleeding; E11.9 Type 2 diabetes mellitus without complications; I10 Essential (primary) hypertension
CPT/HCPCS: 96365

== ENCOUNTER 2019-04-18 09:02 | Day surgery (SDC) | payer OTHER ==
[2019-04-18 11:43] VITALS: BP 105/68; PULSE 83; TEMP 98.2
== END 2019-04-18 10:30 | disposition home or self-care (01) ==
LOC: JINFUSION 09:02
PROVIDERS: ATTEND Internal Medicine Infectious Disease
DX: A41.89 Other specified sepsis (principal); B96.20 Unspecified Escherichia coli [E. coli] as the cause of diseases classified elsewhere; K57.20 Diverticulitis of large intestine with perforation and abscess without bleeding; E11.9 Type 2 diabetes mellitus without complications; I10 Essential (primary) hypertension
CPT/HCPCS: 96365

== ENCOUNTER 2019-04-19 09:14 | Day surgery (SDC) | payer OTHER ==
[2019-04-19 10:11] VITALS: TEMP 98.6
[2019-04-19 10:41] VITALS: BP 113/65; PULSE 82
[2019-04-19] MEDS ORDERED: ERTAPENEM SODIUM 1 GM in SODIUM CHLORIDE 50 ML IVPB ONE (11:00)
== END 2019-04-19 10:40 | disposition home or self-care (01) ==
LOC: JINFUSION 09:14
PROVIDERS: ATTEND Internal Medicine Infectious Disease
DX: A41.89 Other specified sepsis (principal); B96.20 Unspecified Escherichia coli [E. coli] as the cause of diseases classified elsewhere; K57.20 Diverticulitis of large intestine with perforation and abscess without bleeding; E11.9 Type 2 diabetes mellitus without complications; I10 Essential (primary) hypertension
CPT/HCPCS: 96365

== ENCOUNTER 2019-04-20 10:34 | Day surgery (SDC) | payer OTHER ==
[2019-04-20] MEDS ORDERED: ERTAPENEM SODIUM 1 GM in SODIUM CHLORIDE 50 ML IVPB ONE (11:30)
[2019-04-20 12:52] VITALS: BP 120/71; PULSE 83; TEMP 98.1
== END 2019-04-20 13:33 | disposition home or self-care (01) ==
LOC: JINFUSION 10:34 → J7W 10:35 → JINFUSION 13:33
PROVIDERS: ATTEND Internal Medicine Infectious Disease
DX: A41.89 Other specified sepsis (principal); B96.20 Unspecified Escherichia coli [E. coli] as the cause of diseases classified elsewhere; K57.20 Diverticulitis of large intestine with perforation and abscess without bleeding; E11.9 Type 2 diabetes mellitus without complications; I10 Essential (primary) hypertension
CPT/HCPCS: 96365

== ENCOUNTER → 2019-05-06 | Day surgery (SDC) | payer OTHER | END | disposition home or self-care (01) | LOC: JRADIR 12:35 | PROVIDERS: ATTEND Surgery | PROC: BW11YZZ Fluoroscopy of Abdomen and Pelvis using Other Contrast (ICD-10-PCS; principal; 2019-05-06) | DX: T85.9XXA Unspecified complication of internal prosthetic device, implant and graft, initial encounter (principal); K57.92 Diverticulitis of intestine, part unspecified, without perforation or abscess without bleeding | CPT/HCPCS: 49424; 76080-TC-FY ==